=== PATIENT | female | born 1985 | race African-American/Black ===

== ENCOUNTER 2017-06-30 19:14 | Emergency (ER) | payer BC ==
[~2017-06-30] VITALS: Ht 167.6 cm; Wt 117.9 kg
[2017-06-30] MEDS ORDERED: ASPIRIN 81 MG CHEW TAB PO ONE (20:00)
[2017-06-30 20:04] LABS: BASOPHILS % 0.5 % (0.0-1.0); EOSINOPHILS # (AUTO) 0.3 (0.0-0.4); EOSINOPHILS % 4.2 % (0.0-6.0); HEMATOCRIT 29.8 % (34.2-44.1); HEMOGLOBIN 9.3 g/dL (12.0-16.0); LYMPHOCYTES % 31.6 % (18.0-39.1); MEAN CORPUSCULAR HEMOGLOBIN 25.8 pg (28-32); MEAN CORPUSCULAR HGB CONC 31.2 g/dL (31-35); MEAN CORPUSCULAR VOLUME 82.8 fL (81-99); MONOCYTES # (AUTO) 0.5 (0.2-0.8); MONOCYTES % 8.1 % (4.4-11.3); NEUTROPHILS # (AUTO) 3.6 (2.1-6.9); NEUTROPHILS % 55.3 % (38.7-80.0); PLATELET COUNT 334 x10e3/uL (140-360); RED CELL DISTRIBUTION WIDTH 22.8 % (11.7-14.4)
[2017-06-30 20:06] LABS: BILIRUBIN,URINE NEGATIVE (NEGATIVE); KETONES,URINE NEGATIVE (NEGATIVE); LEUKOCYTE ESTERASE ,URINE 2+ (NEGATIVE); NITRITE,URINE NEGATIVE (NEGATIVE); URINE UROBILINOGEN 0.2 mg/dL (0.2 - 1)
[2017-06-30 20:08] LABS: INR 0.95; PARTIAL THROMBOPLASTIN TIME 24.8 seconds (23.8-35.5); PROTHROMBIN TIME 13.2 seconds (11.9-14.5)
[2017-06-30 20:09] LABS: CLARITY,URINE SL CLOUDY (CLEAR); COLOR,URINE YELLOW (YELLOW); PROTEIN,URINE DIPSTICK TRACE (NEGATIVE)
[2017-06-30 20:18] LABS: BACTERIA,URINE MODERATE /HPF; EPITHELIAL CELLS,URINE FEW /LPF; RBC,URINE 0-5 /HPF (0-5)
[2017-06-30 20:19] LABS: ALANINE AMINOTRANSFERASE 15 IU/L (0-55); ALBUMIN 3.7 g/dL (3.5-5.0); ALBUMIN/GLOBULIN RATIO 0.9 (0.8-2.0); ALKALINE PHOSPHATASE 47 IU/L (40-150); ANION GAP 10.9 mmol/L (8-16); BLOOD UREA NITROGEN 16 mg/dL (7-26); BUN/CREATININE RATIO 19 (6-25); CARBON DIOXIDE 23 mmol/L (22-29); CHLORIDE 109 mmol/L (98-107); CREATINE KINASE 153 IU/L (29-168); CREATININE, SERUM 0.85 mg/dL (0.57-1.11); EST GLOMERULAR FILTRATION RATE > 60 ML/MIN (60-); GLUCOSE 98 mg/dL (74-118); POTASSIUM 3.9 mmol/L (3.5-5.1); SODIUM 139 mmol/L (136-145)
[2017-06-30 20:25] LABS: TROPONIN I 0.005 ng/mL (0-0.300)
[2017-06-30 20:56] LABS: ANISOCYTOSIS MODERATE
[2017-06-30 20:58] LABS: PLATELET ESTIMATE ADEQUATE; PLATELET MORPHOLOGY COMMENT NORMAL; RBC MORPHOLOGY COMMENT ABNORMAL; SCHISTOCYTES RARE; STOMATOCYTES SLIGHT; TARGET CELLS MODE
--- NOTE | 2017-06-30 21:16 | Diagnostic Imaging Report ---
EXAM: CT CHEST W DATE: 06/30/2017 7:55 PM Time stamp on exam: 6 hours INDICATION: Elevated d-dimer, chest pain COMPARISON: None TECHNIQUE: Multidetector CT scanning of the chest was performed. Coronal and sagittal multiplanar reformations were obtained. PE protocol performed. IV Contrast: 100 cc Isovue-370 CTDIvol has been reviewed. It is below the limits set by the Radiation Protocol Committee (RPC). FINDINGS: LUNGS AND AIRWAYS: The trachea and major bronchi are unremarkable. No consolidations or edema. PLEURA: No effusions or pneumothorax. HEART, MEDIASTINUM, VESSELS: The heart is within normal size limits. Soft tissue density in the anterior mediastinum is likely related to residual thymic tissue. No thoracic aortic aneurysm. The main pulmonary artery is within normal size limits. No evidence of a pulmonary embolism. UPPER ABDOMEN: Unremarkable. MUSCULOSKELETAL: No acute findings. IMPRESSION: No evidence of a pulmonary embolism. Signed by: Dr. Gisele Briseno M.D. on 06/30/2017 9:12 PM
[2017-06-30] MEDS ORDERED: SODIUM CHLORIDE 0.9% 50ML 50 ML ONE (21:22)
[2017-06-30] MEDS ORDERED: IOPAMIDOL 370 MG/ML 200 ML INFUS..BTL INJ ONE (21:22)
[2017-06-30] MEDS ORDERED: FUROSEMIDE40 MG PO (21:30)
[2017-06-30] MEDS ORDERED: KETOROLAC TROME10 MG PO (21:30)
[2017-06-30] MEDS ORDERED: GARLIQUE5000 MCG PO (21:30)
[2017-06-30] MEDS ORDERED: NORETHINDRONE AC5 MG PO (21:30)
[2017-06-30] MEDS ORDERED: LORATADINE10 M1 PO (21:30)
[2017-06-30] MEDS ORDERED: FLONASE (21:30)
[2017-06-30] MEDS ORDERED: KETOROLAC TROMETHAMINE 30 MG/ML VIAL IV ONE (22:00)
--- NOTE | 2017-07-02 16:20 | Cardiology Report ---
DATE OF STUDY: DOPPLER SCAN OF THE LOWER EXTREMITY VEINS ATTENDING PHYSICIAN: Dr. Daylin Grove. Lower extremity veins were interrogated using the duplex scanning method. The veins were compressed, but there were no definite deep venous thromboses. CONCLUSIONS: No definite deep venous thrombosis involving the lower extremity veins bilaterally. Job#: [id number] EV cc:DAYLIN GROVE MD
== END 2017-06-30 22:36 | disposition home or self-care (01) ==
LOC: ER 19:14
DX: R07.89 Other chest pain (principal); N30.90 Cystitis, unspecified without hematuria
CPT/HCPCS: 36415; 71260; 80053; 81001; 82550; 82553; 83880; 84484; 84702; 85025; 85610; 85730; 87086; 93005; 93970; 99284; J1885; Q9967

== ENCOUNTER 2018-09-21 00:03 | Inpatient (IN) | payer BC ==
[~2018-09-21] VITALS: Ht 167.6 cm; Wt 117.9 kg
[~2018-09-21 00:03] MED LIST: FLONASE; FUROSEMIDE40 MG PO; GARLIQUE5000 MCG PO; KETOROLAC TROME10 MG PO; LORATADINE10 M1 PO; NORETHINDRONE AC5 MG PO
--- OUTSIDE RECORDS SUMMARY | 2018-09-21 00:05 | XMS REPORT ---
Author Author [facility] Address Unknown Phone Unavailable Care Team Providers Care Oxygen Equipment Aide Name Role Phone Meghan GROVE Unavailable Unavailable Problems This patient has no known problems. Allergies, Adverse Reactions, Alerts This patient has no known allergies or adverse reactions. Medications This patient has no known medications. Results Test Description Test Time Test Comments Text Results Atomic Results Result Comments CT CHEST W [facility] [address] [id number] Patient Name: SANTO RAJPUT MR #: [id number] : 1985 Age/Sex: 32/F Req #: [id number] Adm Physician: Ordered by: DEVAUGHN GROVE MD Report #: [id number] Location: ER Room/Bed: Procedure: [id number] CT/CT CHEST W Exam Date: 06/30/17 Exam Time: 2024 REPORT STATUS: Signed EXAM: CT CHEST W DATE: 06/30/2017 7:55 PM Time stamp on exam: 2035 hours INDICATION: Elevated d-dimer, chest pain COMPARISON: None TECHNIQUE: Multidetector CT scanning of the chest was performed. Coronal and sagittal multiplanar reformations were obtained. PE protocol performed. IV Contrast: 100 cc Isovue-370 CTDIvol has been reviewed. It is below the limits set by the Radiation Protocol Committee (RPC). FINDINGS: LUNGS AND AIRWAYS: The trachea and major bronchi are unremarkable. No consolidations or edema. PLEURA: No effusions or pneumothorax. HEART, MEDIASTINUM, VESSELS: The heart is within normal size limits. Soft tissue density in the anterior mediastinum is likely related to residual thymic tissue. No thoracic aortic aneurysm. The main pulmonary artery is within normal size limits. No eviden ce of a pulmonary embolism. UPPER ABDOMEN: Unremarkable. MUSCULOSKELETAL: No acute findings. IMPRESSION: No evidence of a pulmonary embolism. Signed by: Dr. Layla Briseno M.D. on 06/30/2017 9:12 PM Dictated By: LAYLA BRISENO MD 11 Transcribed By: LEVON on 06/30/172111 COPY TO: DEVAUGHN GROVE MD VENOUS DUPLEX LWR B/L [address] [place] [address] Patient Name : SANTO RAJPUT MR #: [id number] : 1985 Age/Sex: 32/F Adm Physician : DEVAUGHN GROVE MD Admit Date : Location : ER Room/Bed : REPORT: Cardiology Report DATE OF STUDY: DOPPLER SCAN OF THE LOWER EXTREMITY VEINS ATTENDING PHYSICIAN: Dr. Devaughn Grove. Lower extremity veins were interrogated using the duplex scanning method. The veins were compressed, but there were no definite deep venous thromboses. CONCLUSIONS: No definite deep venous thrombosis involving the lower extremity veins bilaterally. Job#: [id number] EV cc: DEVAUGHN GROVE MD Signature Date Dictated By: GWYN ANDRADE MD Transcribed By: EDS on 07/02/17 <Electronically signed by GWYN ANDRADE MD><<Signature on File>>07/04/17 0905 COPY TO:
--- NOTE | 2018-09-21 00:45 | NUR ---
BLOOD OBTAINED FOR TYPE AND SCREEN AND BLOOD BAND APPLIED TO PATIENT WITH VERIFICATION BY THIS RN, Samuel BUENO LVN, AND PATIENT.
[2018-09-21 01:16] LABS: BASOPHILS % 0.2 % (0.0-1.0); EOSINOPHILS # (AUTO) 0.2 (0.0-0.4); EOSINOPHILS % 2.8 % (0.0-6.0); LYMPHOCYTES # (AUTO) 1.7 (1.0-3.2); LYMPHOCYTES % 31.9 % (18.0-39.1); MEAN CORPUSCULAR HEMOGLOBIN 30.8 pg (28-32); MEAN CORPUSCULAR HGB CONC 31.2 g/dL (31-35); MEAN CORPUSCULAR VOLUME 98.6 fL (81-99); MONOCYTES # (AUTO) 0.3 (0.2-0.8); MONOCYTES % 5.4 % (4.4-11.3); NEUTROPHILS # (AUTO) 3.1 (2.1-6.9); PLATELET COUNT 245 x10e3/uL (140-360); RED BLOOD COUNT 1.43 x10e6/uL (3.6-5.1); RED CELL DISTRIBUTION WIDTH 39.2 % (11.7-14.4)
[2018-09-21 01:18] LABS: HEMATOCRIT 14.1 % (34.2-44.1); HEMOGLOBIN 4.4 g/dL (12.0-16.0)
--- NOTE | 2018-09-21 01:25 | Diagnostic Imaging Report ---
EXAMINATION: CHEST 2 VIEWS INDICATION: Chest pain, sob, cough. COMPARISON: None FINDINGS: TUBES and LINES: None. LUNGS: Lungs are well inflated. Lungs are clear. There is no evidence of pneumonia or pulmonary edema. PLEURA: No pleural effusion or pneumothorax. HEART AND MEDIASTINUM: The cardiomediastinal silhouette is unremarkable. BONES AND SOFT TISSUES: No acute osseous lesion. Soft tissues are unremarkable. UPPER ABDOMEN: No free air under the diaphragm. IMPRESSION: No acute thoracic abnormality. Signed by: Dr. Marlene Steinberg M.D. on 09/21/2018 1:21 AM
[2018-09-21 01:34] LABS: ALANINE AMINOTRANSFERASE 25 IU/L (0-55); ALBUMIN 3.8 g/dL (3.5-5.0); ALBUMIN/GLOBULIN RATIO 1.1 (0.8-2.0); ALKALINE PHOSPHATASE 38 IU/L (40-150); ANION GAP 12.8 mmol/L (8-16); BLOOD UREA NITROGEN 12 mg/dL (7-26); BUN/CREATININE RATIO 16 (6-25); CALCIUM 8.5 mg/dL (8.4-10.2); CARBON DIOXIDE 23 mmol/L (22-29); CHLORIDE 105 mmol/L (98-107); CREATINE KINASE 30 IU/L (29-168); CREATININE, SERUM 0.77 mg/dL (0.57-1.11); EST GLOMERULAR FILTRATION RATE > 60 ML/MIN (60-); GLUCOSE 92 mg/dL (74-118); POTASSIUM 3.8 mmol/L (3.5-5.1); SODIUM 137 mmol/L (136-145)
[2018-09-21 02:17] LABS: BILIRUBIN,URINE NEGATIVE (NEGATIVE); CLARITY,URINE CLEAR (CLEAR); COLOR,URINE YELLOW (YELLOW); KETONES,URINE NEGATIVE (NEGATIVE); LEUKOCYTE ESTERASE ,URINE NEGATIVE (NEGATIVE); NITRITE,URINE NEGATIVE (NEGATIVE); PREGNANCY TEST, URINE NEGATIVE (NEGATIVE); PROTEIN,URINE DIPSTICK NEGATIVE (NEGATIVE); URINE UROBILINOGEN 0.2 mg/dL (0.2 - 1)
[2018-09-21 02:22] LABS: EOSINOPHILS % (MANUAL) 3 % (0-7); LYMPHOCYTES % (MANUAL) 38 % (19-48); MONOCYTES % (MANUAL) 1 % (3.4-9.0); NEUTROPHILS % (MANUAL) 58 % (40-74); NUCLEATED RED BLOOD CELLS 1
[2018-09-21 02:23] LABS: ANISOCYTOSIS MARKED; PLATELET ESTIMATE ADEQUATE; PLATELET MORPHOLOGY COMMENT NORMAL; RBC MORPHOLOGY COMMENT ABNORMAL
[2018-09-21 02:24] LABS: TEAR DROP CELLS FEW
[2018-09-21 02:25] LABS: OVALOCYTES FEW
[2018-09-21 02:26] LABS: MICROCYTOSIS MODERATE; POLYCHROMASIA FEW
[2018-09-21] MEDS ORDERED: FUROSEMIDE INJ 10 MG/ML 2 ML VIAL IV PRN (02:30)
[2018-09-21] MEDS ORDERED: SODIUM CHLORIDE 0.9% 250ML 250 ML IV ONE (02:30)
[2018-09-21 02:32] LABS: BACTERIA,URINE FEW /HPF
[2018-09-21] MEDS ORDERED: BUTALB-ACETAMI1 EACH PO (03:43)
[2018-09-21] MEDS ORDERED: SUMATRIPTAN SUC50 MG PO (03:43)
[2018-09-21] MEDS ORDERED: CYMBALTA30 MG PO (03:45)
[2018-09-21] MEDS ORDERED: GABAPENTIN300 MG PO (03:45)
[2018-09-21] MEDS ORDERED: CLONAZEPAM0.5 MG PO (03:45)
[2018-09-21] MEDS ORDERED: ONDANSETRON HCL4 MG SL (03:47)
[2018-09-21] MEDS ORDERED: KETOROLAC TROMETHAMINE 10 MG TAB PO PRN (04:00)
[2018-09-21] MEDS ORDERED: ACETAMIN/BUTALBITAL/CAFFEINE TAB PO PRN (04:00)
[2018-09-21] MEDS ORDERED: CLONAZEPAM 0.5 MG TAB PO PRN (04:00)
[2018-09-21] MEDS ORDERED: ONDANSETRON HCL 4 MG ORAL DISINTEGRATING TAB SL PRN (04:00)
[2018-09-21 04:10] VITALS: BP 120/53
[2018-09-21 05:56] VITALS: BP 121/63
[2018-09-21] MEDS ORDERED: SUMATRIPTAN SUCCINATE 25 MG TAB PO PRN (06:45)
--- NOTE | 2018-09-21 07:15 | NUR ---
Pt alert resp even and unlabored, pt lying supine, no distress noted, pt receiving blood at this time , no SOB indicated , no flank pain, pt able to make needs known, call light in reach.
[2018-09-21] MEDS: GARLIQUE PO SCH ×2 (07:30→09:00)
[2018-09-21 08:19] VITALS: BP 120/68
[2018-09-21] MEDS: LORATADINE 10 MG TAB PO SCH (08:42)
[2018-09-21] MEDS: GABAPENTIN 300 MG CAP PO SCH ×2 (08:42→17:00)
[2018-09-21] MEDS: DULOXETINE HCL 30 MG DELAYED RELEASE PO SCH (08:42)
[2018-09-21] MEDS ORDERED: FUROSEMIDE 40 MG TAB PO PRN (09:00)
[2018-09-21] MEDS: PANTOPRAZOLE 40 MG 10ML VIAL IV SCH (09:00)
[2018-09-21] MEDS ORDERED: FUROSEMIDE 40 MG TAB PO SCH (09:00)
[2018-09-21 09:27] LABS: CREATINE KINASE MB 0.1 ng/mL (0-5.0)
[2018-09-21 09:51] LABS: THYROID STIMULATING HORMONE 3.157 uIU/mL (0.350-4.940)
[2018-09-21] MEDS ORDERED: DEXAMETHASONE PHOS 10MG INJ 20 MG in SODIUM CHLORIDE 0.9% 50ML 50 ML IV NR (11:00)
[2018-09-21] MEDS ORDERED: DIPHENHYDRAMINE HCL INJ 25 MG in SODIUM CHLORIDE 0.9% 50ML 50 ML IV NR ×2 (11:00→20:30)
[2018-09-21] MEDS ORDERED: FAMOTIDINE INJ 20 MG in SODIUM CHLORIDE 0.9% 50ML 50 ML IV NR (11:00)
[2018-09-21] MEDS ORDERED: IRON DEXTRAN INJ 50 MG in SODIUM CHLORIDE 0.9% 100 ML IV ONE ×2 (11:30→21:30)
[2018-09-21] MEDS ORDERED: SODIUM CHLORIDE 0.9% 250ML 250 ML ONE ×2 (11:31→18:11)
[2018-09-21 12:04] VITALS: BP 121/72
--- NOTE | 2018-09-21 12:15 | NUR ---
2nd unit of blood started, pt with out SOB, no pain when asked, pt able to make needs known, call light in reach.
--- NOTE | 2018-09-21 12:20 | NUR ---
Dr. Barrientos, orders for infed in to pharmacy. and parietal cell anti bodied put in by lab. (Becak).
[2018-09-21] MEDS ORDERED: IRON DEXTRAN INJ 500 MG in SODIUM CHLORIDE 0.9% 500ML 500 ML IV PRN (12:30)
[2018-09-21] MEDS ORDERED: SODIUM CHLORIDE 0.9% 50ML 50 ML ONE ×2 (13:27→22:42)
[2018-09-21] MEDS ORDERED: IOPAMIDOL 370 MG/ML 200 ML INFUS..BTL INJ ONE ×2 (13:27→22:42)
--- NOTE | 2018-09-21 15:20 | NUR ---
blood 2nd unit ended pt alert no complaints at this time, call light in reach.
[2018-09-21 16:17] VITALS: BP 117/68
--- NOTE | 2018-09-21 16:30 | NUR ---
pt off unit for CT.
[2018-09-21 17:05] LABS: CREATINE KINASE 27 IU/L (29-168)
--- NOTE | 2018-09-21 17:23 | Diagnostic Imaging Report ---
EXAM: CT Abdomen and Pelvis WITH contrast INDICATION: Chest pain, anemia COMPARISON: None. TECHNIQUE: Abdomen and pelvis were scanned utilizing a multidetector helical scanner from the lung base to the pubic symphysis after administration of IV contrast. Coronal and sagittal reformations were obtained. Routine protocol was performed. Scan was performed when during portal venous phase. Dose modulation, iterative reconstruction, and/or weight based adjustment of the mA/kV was utilized to reduce the radiation dose to as low as reasonably achievable. IV CONTRAST: 100 mL of Isovue-370 ORAL CONTRAST: Volumen 900 cc RADIATION DOSE: Total DLP: 986.87 mGy*cm Estimated effective dose: (DLP x 0.015 x size factor) mSv COMPLICATIONS: None FINDINGS: LINES and TUBES: None. LOWER THORAX: Minimal atelectasis in the lung bases. Heart size normal. HEPATOBILIARY: No focal hepatic lesions. No biliary ductal dilation. GALLBLADDER: No radio-opaque stones or sludge. No wall thickening. SPLEEN: No splenomegaly. PANCREAS: No focal masses or ductal dilatation. ADRENALS: No adrenal nodules KIDNEYS/URETERS: Kidneys enhance symmetrically. No hydronephrosis. No cystic or solid mass lesions. No stones. GI TRACT: No abnormal distention, wall thickening, or evidence of bowel obstruction. Moderately large volume of retained stool in the colon. Large volume of fluid in the small bowel with fluid levels. This may be related to oral contrast. No dilatation or evidence for obstruction. No intraluminal filling defect. No wall thickening. Terminal ileum appears unremarkable. Appendix is normal. PELVIC ORGANS/BLADDER: Urinary bladder is moderately distended, extending to the upper pelvic level. The uterus is anteverted. There is a 1.9 cm cyst related to the right adnexa. LYMPH NODES: No lymphadenopathy. VESSELS: Abdominal aorta, IVC and portal system unremarkable. PERITONEUM / RETROPERITONEUM: No pneumoperitoneum or ascites. BONES: No acute or suspicious bony lesions. SOFT TISSUES: Superficial surrounding soft tissue unremarkable. IMPRESSION: 1. No CT evidence for acute abdominal or pelvic pathology. 2. No bowel dilatation or evidence for obstruction. Moderate retained stool throughout the colon may be seen with constipation. 3. 3 the urinary bladder is distended. Staff: Moira Signed by: Dr. Jayce Pizarro M.D. on 09/21/2018 5:19 PM
--- NOTE | 2018-09-21 18:15 | NUR ---
3rd unit of blood transfusing pt tolerating well, no c/o SOB and no back pain, call light in reach.
--- NOTE | 2018-09-21 19:44 | NUR ---
report given to oncoming nurse, for continued care.
[2018-09-21 20:00] VITALS: BP 105/58
[2018-09-21] MEDS ORDERED: DEXAMETHASONE PHOS 10MG INJ 20 MG in SODIUM CHLORIDE 0.9% 50ML 50 ML IV ONE (20:30)
[2018-09-21] MEDS ORDERED: FAMOTIDINE INJ 20 MG in SODIUM CHLORIDE 0.9% 50ML 50 ML IV ONE (20:30)
[2018-09-21] MEDS ORDERED: DIPHENHYDRAMINE HCL INJ 25 MG in SODIUM CHLORIDE 0.9% 50ML 50 ML IV ONE (20:30)
[2018-09-21] MEDS ORDERED: IRON DEXTRAN INJ 500 MG in SODIUM CHLORIDE 0.9% 500ML 500 ML IV ONE (23:00)
[2018-09-22] VITALS (8 sets, daily range): BP systolic 106–125; BP diastolic 56–77
--- NOTE | 2018-09-22 | NUR ---
patient refused cardiac enzymes at this time, will check in am.
[2018-09-22] MEDS ORDERED: IRON DEXTRAN INJ 500 MG in SODIUM CHLORIDE 0.9% 500ML 500 ML IV PRN (03:15)
[2018-09-22 06:17] LABS: CREATINE KINASE MB 0.2 ng/mL (0-5.0)
[2018-09-22 06:30] LABS: CHOL/HDL RATIO 3.9 (3.0-3.6)
--- NOTE | 2018-09-22 07:14 | NUR ---
Patient did not receive ordered iron because, medication was not found in the Pyxis, fridge, or specific bin, off site pharmacy called and states it will have to be prepared by the pharmacy department and so patient will get it this morning. Endorsed to next shift.
--- NOTE | 2018-09-22 07:14 | NUR ---
Pt alert resp even and unlabored at this time, no distress noted no c/o pain when asked, pt able to make needs known, call light in reach.
--- NOTE | 2018-09-22 07:45 | NUR ---
patient endorsed to next shift for continuity of care.
[2018-09-22] MEDS: LORATADINE 10 MG TAB PO SCH (09:00)
[2018-09-22] MEDS: GABAPENTIN 300 MG CAP PO SCH ×2 (09:00→17:00)
[2018-09-22] MEDS: GARLIQUE PO SCH (09:00)
[2018-09-22] MEDS: CYANOCOBALAMIN INJ 1,000 MCG/ML VIAL IM SCH ×2 (09:00→10:08)
[2018-09-22] MEDS: PANTOPRAZOLE 40 MG 10ML VIAL IV SCH (09:00)
[2018-09-22] MEDS: DULOXETINE HCL 30 MG DELAYED RELEASE PO SCH (09:00)
[2018-09-22 11:09] LABS: BASOPHILS % 0.3 % (0.0-1.0); EOSINOPHILS # (AUTO) 0.1 (0.0-0.4); EOSINOPHILS % 0.8 % (0.0-6.0); HEMATOCRIT 26.2 % (34.2-44.1); HEMOGLOBIN 8.8 g/dL (12.0-16.0); LYMPHOCYTES # (AUTO) 1.2 (1.0-3.2); MEAN CORPUSCULAR HEMOGLOBIN 30.9 pg (28-32); MEAN CORPUSCULAR HGB CONC 33.6 g/dL (31-35); MEAN CORPUSCULAR VOLUME 91.9 fL (81-99); MONOCYTES # (AUTO) 0.3 (0.2-0.8); MONOCYTES % 3.9 % (4.4-11.3); NEUTROPHILS # (AUTO) 4.9 (2.1-6.9); NEUTROPHILS % 75.3 % (38.7-80.0); PLATELET COUNT 247 x10e3/uL (140-360); RED BLOOD COUNT 2.85 x10e6/uL (3.6-5.1); RED CELL DISTRIBUTION WIDTH 27.2 % (11.7-14.4)
[2018-09-22 13:14] LABS: ANISOCYTOSIS MODERATE; EOSINOPHILS % (MANUAL) 1 % (0-7); LYMPHOCYTES % (MANUAL) 23 % (19-48); MONOCYTES % (MANUAL) 4 % (3.4-9.0); NEUTROPHILS % (MANUAL) 70 % (40-74); POIKILOCYTOSIS MODERATE; RBC MORPHOLOGY COMMENT ABNORMAL
[2018-09-22 13:15] LABS: ELLIPTOCYTE, RBC MODERATE; PLATELET ESTIMATE ADEQUATE; PLATELET MORPHOLOGY COMMENT NORMAL; SCHISTOCYTES FEW; TEAR DROP CELLS MODERATE
--- NOTE | 2018-09-22 19:00 | NUR ---
WALKING ROUNDS PERFORMED, RECEIVED PT SITTING IN BED, AAOX3, RR EVEN AND NON-LABORED, ON RA. TALKING TO MD GILLETTE. NO S/SX OF DISTRESS NOTED. LEFT PT LAYING SEMI FOWLERS IN BED, BED IN LOW LOCKED POSITION, SIDE RAILS UPX2, CALL LIGHT AND PHONE WITHIN REACH.
--- NOTE | 2018-09-22 19:19 | NUR ---
REPORT GIVEN TO ONCOMING NURSE, FOR CONTINUED CARE
[2018-09-23] VITALS: BP 108/65
[2018-09-23 04:00] VITALS: BP 108/62
[2018-09-23 05:23] LABS: BASOPHILS % 0.2 % (0.0-1.0); EOSINOPHILS # (AUTO) 0.1 (0.0-0.4); EOSINOPHILS % 1.5 % (0.0-6.0); HEMOGLOBIN 7.5 g/dL (12.0-16.0); LYMPHOCYTES # (AUTO) 2.7 (1.0-3.2); LYMPHOCYTES % 51.8 % (18.0-39.1); MEAN CORPUSCULAR HEMOGLOBIN 30.2 pg (28-32); MEAN CORPUSCULAR HGB CONC 33.6 g/dL (31-35); MEAN CORPUSCULAR VOLUME 89.9 fL (81-99); MONOCYTES # (AUTO) 0.2 (0.2-0.8); NEUTROPHILS # (AUTO) 2.2 (2.1-6.9); NEUTROPHILS % 41.5 % (38.7-80.0); PLATELET COUNT 144 x10e3/uL (140-360); RED BLOOD COUNT 2.48 x10e6/uL (3.6-5.1); RED CELL DISTRIBUTION WIDTH 26.6 % (11.7-14.4)
[2018-09-23 05:27] LABS: HEMATOCRIT 22.3 % (34.2-44.1)
[2018-09-23 05:40] LABS: ALANINE AMINOTRANSFERASE 34 IU/L (0-55); ALBUMIN 3.6 g/dL (3.5-5.0); ALBUMIN/GLOBULIN RATIO 1.2 (0.8-2.0); ALKALINE PHOSPHATASE 34 IU/L (40-150); ANION GAP 10.6 mmol/L (8-16); BLOOD UREA NITROGEN 15 mg/dL (7-26); BUN/CREATININE RATIO 21 (6-25); CALCIUM 8.4 mg/dL (8.4-10.2); CARBON DIOXIDE 25 mmol/L (22-29); CHLORIDE 105 mmol/L (98-107); CREATININE, SERUM 0.72 mg/dL (0.57-1.11); EST GLOMERULAR FILTRATION RATE > 60 ML/MIN (60-); GLUCOSE 94 mg/dL (74-118); POTASSIUM 3.6 mmol/L (3.5-5.1); SODIUM 137 mmol/L (136-145)
[2018-09-23 06:51] LABS: ANISOCYTOSIS SLIGHT; PLATELET ESTIMATE ADEQUATE; PLATELET MORPHOLOGY COMMENT NORMAL; RBC MORPHOLOGY COMMENT NORMAL
[2018-09-23 07:59] VITALS: BP 103/59
[2018-09-23 08:30] VITALS: BP 103/59
[2018-09-23] MEDS: GABAPENTIN 300 MG CAP PO SCH (08:31)
[2018-09-23] MEDS: LORATADINE 10 MG TAB PO SCH (08:31)
[2018-09-23] MEDS: DULOXETINE HCL 30 MG DELAYED RELEASE PO SCH (08:31)
[2018-09-23] MEDS: CYANOCOBALAMIN INJ 1,000 MCG/ML VIAL IM SCH (08:31)
[2018-09-23] MEDS: PANTOPRAZOLE 40 MG 10ML VIAL IV SCH (08:31)
[2018-09-23] MEDS: GARLIQUE PO SCH (08:31)
[2018-09-23 11:49] VITALS: BP 106/55
--- NOTE | 2018-09-23 13:11 | NUR ---
piv removed with tip intact, clean dry dressing applied. denies pain. all personal belongings, RX and d/c instructions in hand at time of d/c. escorted downstairs to exit via wheelchair. patient states drove self here and had private auto in parking lot to which she ambulated to.
--- NOTE | 2018-09-24 11:05 | Discharge Summary ---
ADMIT DIAGNOSES: 1. Acute on chronic anemia. 2. Anemia secondary to iron deficiency. 3. Menorrhagia. DISCHARGE DIAGNOSES: 1. Chronic anemia secondary to iron deficiency and vitamin B12 deficiency. 2. Acute on chronic anemia secondary to menorrhagia. 3. Menorrhagia. 4. Extreme obesity. Body mass index of 42. HOSPITAL COURSE: This is a 33-year-old woman, who was initially admitted to [facility] with a diagnosis of profound anemia. On admission, hemoglobin was 4.4 g/dL. During this hospitalization, she was transfused a total of 3 units of packed red cells. She was also seen by men's golf coach namely Dr. Magali Venegas during this hospitalization for acute anemia. It was thought that the patient's acute on chronic anemia was secondary to menorrhagia. She has a history of chronic anemia secondary to iron deficiency and vitamin B12 deficiency. The patient was found to have a vitamin B12 level of 8 during this hospitalization, which is very low. The patient also was infused iron during this hospitalization. CONDITION ON DISCHARGE: Stable. DISCHARGE MEDICATIONS: 1. Vitamin B12, 1000 mcg intramuscularly daily for 7 days and then weekly for 4 weeks and then monthly thereafter. 2. Fioricet 1 tablet every 6 hours p.r.n. pain. 3. Clonazepam 0.5 mg every 6 hours p.r.n. anxiety. 4. Duloxetine 30 mg daily. 5. Gabapentin 300 mg b.i.d. 6. Loratadine 10 mg daily. 7. Ondansetron 4 mg sublingual every 4 hours p.r.n. nausea. 8. Sumatriptan 50 mg q.2 hours p.r.n. migraine headache. The patient was previously on ketorolac and she was told to stop the medication. The patient is instructed to avoid all NSAIDs and aspirin. FOLLOWUP INSTRUCTIONS: The patient is instructed to follow up with a offender job retention specialist and men's golf coach as an outpatient. MD FRANKLYN Fox/HERNANDEZ /[id number] cc: MD Magali Mc, MD
== END 2018-09-23 13:11 | disposition home or self-care (01) | DRG 812 ==
LOC: ER 00:03 → ERHOLD 02:46 → OBSVTOIN 03:11 → MED/SURG2 04:15
PROC: 30233N1 Transfusion of Nonautologous Red Blood Cells into Peripheral Vein, Percutaneous Approach (ICD-10-PCS; principal; 2018-09-21)
DX: D62 Acute posthemorrhagic anemia (principal); Z68.41 Body mass index [BMI] 40.0-44.9, adult; N92.0 Excessive and frequent menstruation with regular cycle; E66.01 Morbid (severe) obesity due to excess calories; D50.9 Iron deficiency anemia, unspecified; D51.9 Vitamin B12 deficiency anemia, unspecified
CPT/HCPCS: 36415; 71046; 74177; 80053; 80061; 81001; 81025; 82550; 82553; 82607; 82728; 83516; 83540; 84436; 84443; 84466; 84479; 84484; 85025; 85045; 86850; 86900; 86920; 93005; 99284; J1100; J1200; J1750; J1940; J3420; J7040; J7050; P9016; Q9967

== ENCOUNTER 2019-11-18 22:50 | Emergency (ER) | payer BC ==
[~2019-11-18] VITALS: Ht 167.6 cm; Wt 114.8 kg
[~2019-11-18 22:50] MED LIST changes: +BUTALB-ACETAMI1 EACH PO; +CLONAZEPAM0.5 MG PO; +CYMBALTA30 MG PO; +GABAPENTIN300 MG PO; +ONDANSETRON HCL4 MG SL; +SUMATRIPTAN SUC50 MG PO
--- NOTE | 2019-11-18 23:11 | Emergency Department Note ---
History of Present Illnes History of Present Illness Stated Complaint: KNEE PAIN, CAN'T WALK OF STAND ON KNEE History of Present Illness This is a 34 year old female R knee pain of week duration. patient with fevers which self resolved prior to arrival . Patient seen at urgent care prior with neg XR of R knee Historian: Patient Mathematician Required: No Onset (how long ago): week(s) (1) Radiation: non-radiation Severity: moderate Onset quality: sudden Timing of current episode: constant Progression: worsening Context: recent illness Relieving factors: immobilization Exacerbating factors: movement Associated symptoms: fever/chills Treatments prior to arrival: NSAID Past Medical/Family History Physician Review I have reviewed the patient's past medical and family history. Any updates have been documented here. Past Medical History Recent Fever: Yes Clinical Suspicion of Infectio: No New/Unexplained Change in Ment: No Past Medical History: None, Migraines, Anemia, Anxiety, Depression Other Medical History: ANEMIA ENDOMETROSIS Spondylosis Other Surgery: Social History Smoking Cessation: Never Smoker Alcohol Use: None Any Illegal Drug Use: No Family History Family history of heart diseas: Yes Other Last Tetanus: UNK Review of Systems Review of Systems Constitutional: fever Musculoskeletal: joint pain Review of other systems All other systems reviewed and negative. Physical Exam Related Data Allergies: Coded Allergies: peanut (Verified Allergy, Unknown, 06/30/17) Physical Exam CONSTITUTIONAL Constitutional: well-developed, obese HENT HENT: normocephalic, atraumatic, oropharynx clear/moist, nose normal HENT - Ear: left ext ear normal, right ext ear normal EYES Eyes: PERRL, conjunctivae normal NECK Neck: ROM normal PULMONARY Pulmonary: effort normal, breath sounds normal CARDIOVASCULAR Cardiovascular: regular rhythm, heart sounds normal, capillary refill normal, normal rate GASTROINTESTINAL Abdominal: soft, nontender, bowel sounds normal GENITOURINARY Genitourinary: exam deferred SKIN Skin: warm, dry MUSCULOSKELETAL Musculoskeletal: ROM normal, tenderness (right anterior knee) NEUROLOGICAL Neurological: alert, oriented x 3, no gross motor or sensory deficits PSYCHOLOGICAL Psychiatric/behavioral: mood/affect normal, judgement normal Results Laboratory Laboratory Laboratory Tests Test 11/18/19 23:26 White Blood Count 10.36 x10e3/uL (4.8-10.8) Red Blood Count 4.39 x10e6/uL (3.6-5.1) Hemoglobin 10.2 g/dL (12.0-16.0) Hematocrit 34.1 % (34.2-44.1) Mean Corpuscular Volume 77.7 fL (81-99) Mean Corpuscular Hemoglobin 23.2 pg (28-32) Mean Corpuscular Hemoglobin Concent 29.9 g/dL (31-35) Red Cell Distribution Width 18.6 % (11.7-14.4) Platelet Count 252 x10e3/uL (140-360) Neutrophils (%) (Auto) 71.9 % (38.7-80.0) Lymphocytes (%) (Auto) 7.8 % (18.0-39.1) Monocytes (%) (Auto) 5.0 % (4.4-11.3) Eosinophils (%) (Auto) 13.8 % (0.0-6.0) Basophils (%) (Auto) 1.2 % (0.0-1.0) Neutrophils # (Auto) 7.5 (2.1-6.9) Lymphocytes # (Auto) 0.8 (1.0-3.2) Monocytes # (Auto) 0.5 (0.2-0.8) Eosinophils # (Auto) 1.4 (0.0-0.4) Basophils # (Auto) 0.1 (0.0-0.1) Absolute Immature Granulocyte (auto 0.03 x10e3/uL (0-0.1) Sodium Level 137 mmol/L (136-145) Potassium Level 3.7 mmol/L (3.5-5.1) Chloride Level 105 mmol/L (98-107) Carbon Dioxide Level 23 mmol/L (22-29) Anion Gap 12.7 mmol/L (8-16) Blood Urea Nitrogen 9 mg/dL (7-26) Creatinine 0.73 mg/dL (0.57-1.11) Estimat Glomerular Filtration Rate > 60 ML/MIN (60-) BUN/Creatinine Ratio 12 (6-25) Glucose Level 123 mg/dL (74-118) Calcium Level 9.0 mg/dL (8.4-10.2) Lab results reviewed: Yes Imaging Y: Yes Impressions [facility] [address] [place], [place] [id number] Patient Name: SANTO RAJPUT MR #: [id number] : 1985 Age/Sex: 34/F Req #: [id number] [facility] Physician: Ordered by: OLGA RAY DO Report #: [id number] Location: ER Room/Bed: Procedure: [id number] DX/KNEE RIGHT THREE VIEWS Exam Date: 11/18/19 Exam Time: 2340 REPORT STATUS: Signed KNEE RIGHT THREE VIEWS - 3 views HISTORY: Pain. COMPARISON: None available. FINDINGS: Bones: No acute displaced fracture. Osseous alignment is within normal limits. Joints: The joint spaces are well-maintained. Soft tissues: The soft tissues appear unremarkable. IMPRESSION: No acute radiographic abnormality. Signed by: Kely Doss MD on 11/19/2019 12:03 AM Dictated By: KELY DOSS MD 0003 Transcribed By: LEVON on 11/19/19 0003 COPY TO: OLGA RAY DO~ Assessment & Plan Assessment & Plan Problems: (1) Knee pain, right anterior Assessment & Plan Dff Dx : R knee fx, R knee sprain, gout of R knee, R knee bursitis , Septic Joint R knee Plan : Patient to be d/c home Rx Motrin 600 mg, Tylenol #3, Prednisone 60 mg F/U with Dr [facility] Reassessment Reassessment Patient responding well to clinical therapy. Depart Disposition: HOME, SELF-longterm Meds Reported Medications Ondansetron Hcl (ONDANSETRON HCL) 4 Mg Tablet, 4 MG SL Q4HR PRN for NAUSEA 09/21/18 Gabapentin (GABAPENTIN) 300 Mg Capsule, 300 MG PO BID 09/21/18 Duloxetine Hcl (CYMBALTA) 30 Mg Capsule.dr 30 MG PO DAILY 09/21/18 Clonazepam (CLONAZEPAM) 0.5 Mg Tablet, 0.5 MG PO Q6H PRN for ANXIETY 09/21/18 Sumatriptan Succinate (SUMATRIPTAN SUCCINATE) 50 Mg Tablet, 50 MG PO Q2H PRN for MIGRAINE 09/21/18 Butalb/Acetaminophen/Caffeine (FDOYYX-LTBOZYAB-GLJS 50-325-40) 1 Each Tablet, 1 TAB PO Q6H PRN for MIGRAINE 09/21/18 Loratadine (LORATADINE) 10 Mg Tab.gusdis, 10 MG PO DAILY 06/30/17 OLGA RAY DO November 18, 2019 22:55
[2019-11-18] MEDS ORDERED: KETOROLAC TROMETHAMINE 30 MG/ML VIAL ONE (23:26)
[2019-11-18 23:44] LABS: BASOPHILS # (AUTO) 0.1 (0.0-0.1); BASOPHILS % 1.2 % (0.0-1.0); EOSINOPHILS # (AUTO) 1.4 (0.0-0.4); EOSINOPHILS % 13.8 % (0.0-6.0); HEMATOCRIT 34.1 % (34.2-44.1); HEMOGLOBIN 10.2 g/dL (12.0-16.0); LYMPHOCYTES # (AUTO) 0.8 (1.0-3.2); LYMPHOCYTES % 7.8 % (18.0-39.1); MEAN CORPUSCULAR HEMOGLOBIN 23.2 pg (28-32); MEAN CORPUSCULAR HGB CONC 29.9 g/dL (31-35); MEAN CORPUSCULAR VOLUME 77.7 fL (81-99); MONOCYTES # (AUTO) 0.5 (0.2-0.8); NEUTROPHILS # (AUTO) 7.5 (2.1-6.9); NEUTROPHILS % 71.9 % (38.7-80.0); PLATELET COUNT 252 x10e3/uL (140-360); RED BLOOD COUNT 4.39 x10e6/uL (3.6-5.1); RED CELL DISTRIBUTION WIDTH 18.6 % (11.7-14.4)
[2019-11-19 00:05] LABS: ANION GAP 12.7 mmol/L (8-16); BLOOD UREA NITROGEN 9 mg/dL (7-26); BUN/CREATININE RATIO 12 (6-25); CARBON DIOXIDE 23 mmol/L (22-29); CHLORIDE 105 mmol/L (98-107); CREATININE, SERUM 0.73 mg/dL (0.57-1.11); EST GLOMERULAR FILTRATION RATE > 60 ML/MIN (60-); GLUCOSE 123 mg/dL (74-118); POTASSIUM 3.7 mmol/L (3.5-5.1); SODIUM 137 mmol/L (136-145)
--- NOTE | 2019-11-19 00:06 | Diagnostic Imaging Report ---
KNEE RIGHT THREE VIEWS - 3 views HISTORY: Pain. COMPARISON: None available. FINDINGS: Bones: No acute displaced fracture. Osseous alignment is within normal limits. Joints: The joint spaces are well-maintained. Soft tissues: The soft tissues appear unremarkable. IMPRESSION: No acute radiographic abnormality. Signed by: Saud Perez MD on 11/19/2019 12:03 AM
== END 2019-11-19 | disposition home or self-care (01) ==
LOC: ER 22:50
DX: M25.561 Pain in right knee (principal); D64.9 Anemia, unspecified; F41.9 Anxiety disorder, unspecified; Z86.39 Personal history of other endocrine, nutritional and metabolic disease
CPT/HCPCS: 36415; 73562; 80048; 85025; 99283; J1885

== ENCOUNTER 2020-03-04 15:06 | Emergency (ER) | payer BC ==
[~2020-03-04] VITALS: Ht 165.1 cm; Wt 117.9 kg
--- OUTSIDE RECORDS SUMMARY | 2020-03-04 15:16 | XMS REPORT | Continuity of Care Document ---
Author Author [facility] t Organization [facility] Address [address] [place] [address] Phone Unavailable Care Team Providers Care Batterboard Setter Name Role Phone NONSTAFF PCP Unavailable OLGA RAY Attphys Unavailable VILLA, SOUHEIL Attphys Unavailable SWEET, A LAIRD Attphys Unavailable VILLA, SOUHEIL Admphys Unavailable Payers Payer Name Policy Type Policy Number Effective Date Expiration Date [facility] Problems Condition Name Condition Details Condition Category Status Onset Date Resolution Date Last Treatment Date Treating Clinician Comments Source Chest pain Chest pain Problem Active [facility] Secondary anemia Symptomatic anemia Problem Active [facility] Right anterior knee pain Problem Active [facility] Allergies, Adverse Reactions, Alerts Allergy Name Allergy Type Status Severity Reaction(s) Onset Date Inacti ve Date Treating Clinician Comments Source Peanuts Allergy to substance Active 2017-06-30 00:00:00 [facility] No Known Allergies DA Active U 2015-03-02 00:00:00 [facility] Social History Social Habit Start Date Stop Date Quantity Comments Source Sex Assigned At 1985 00:00:00 1985 00:00:00 Female [facility] Medications Ordered Medication Name Filled Medication Name Start Date Stop Da te Current Medication? Ordering Clinician Indication Dosage Frequency Signature (SIG) Comments Components Source Butalb/Acetaminophen/Caffeine (Tdvefu-Gzksqvkq-Lzzr 50 -325-40) 1 Each TABLET Butalb/Acetaminophen/Caffeine (Sxfrxn-Obdpzgig-Qbek 50-325-40) 1 Each TABLET Yes 1 Every 6 Hours as needed for Migr rodney [facility] Clonazepam Clonazepam Yes .5 Every 6 Hours as n eeded for Anxiety [facility] Duloxetine Hcl (Cymbalta) 30 Mg CAPSULE. Duloxetine Hcl (Cymbalta) 30 Mg CAPSULE. Yes [address] [facility] Gabapentin Gabapentin Yes 300 Twice A Day [facility] Loratadine Loratadine Yes 10 Daily [facility] Ondansetron Hcl Ondansetron Hcl Yes 4 Every 4 Hours as needed for Nausea [facility] Sumatriptan Succinate Sumatriptan Succinate Yes 50 Every Two Hours as needed for Migraine [facility] Furosemide Furosemide 2018-09-23 00:00:00 No 20 Daily as needed for Shortness Of Breath [facility] Garlic (Garlique) 5,000 Mcg TABLET Garlic (Garlique) 5,000 Mcg T ABLET 2018-09-23 00:00:00 No 5000 Daily [facility] Ketorolac Tromethamine (Toradol) 10 Mg TABLET Ketorola c Tromethamine (Toradol) 10 Mg TABLET 2018-09-23 00:00:00 No 10 Every 8 Hours as needed for Pain [facility] Flonase Flonase 2018-09-21 00:00:00 No [facility] Norethindrone Acetate Norethindrone Acetate 2018-09-21 00:00:00 No 5 Daily [facility] Vital Signs Vital Name Observation Time Observation Value Comments Source Weight 2019-11-18 23:05:00 253 [lb_av] [facility] BMI (Body Mass Index) 2019-11-18 23:05:00 40.8 kg/m2 [facility] Procedures This patient has no known procedures. Plan of Care Planned Activity Planned Date Details Comments Source Instructions Knee Overuse [facility] Encounters Start Date/Time End Date/Time [facility] Ad[facility] Encounter ID Source 2019-11-18 22:50:00 2019-11-19 00:00:00 Departed Emergency Room [address] [facility] [id number] [facility] 2018-09-21 03:11:00 2018-09-23 13:11:00 Discharged Inpatient 1 NICOLAS VILLA [facility] [id number] [facility] Results Test Description Test Time Test Comments Results Result Comments Source KNEE RIGHT THREE VIEWS 2019-11-19 00:02:00 [facility] [address] [place] [address] Patient Name: SANTO RAJPUT MR #: [id number] : 1985 Age/Sex: 34/F Req #: [id number] Adm Physician: Ordered by: OLGA RAY DO Report #: [id number] Location: ER Room/Bed: Procedure: [id number] DX/KNEE RIGHT THREE VIEWS Exam Date: 11/18/19 Exam Time: 2339 REPORT STATUS: Signed KNEE RIGHT THREE VIEWS - 3 views HISTORY: Pain. COMPARISON: None available. FINDINGS: Bones: No acute displaced fracture. Osseous alignment is within normal limits. Joints: The joint spaces are well-maintained. Soft tissues: The soft tissues appear unremarkable. IMPRESSION: No acute radiographic abnormality. Signed by: Kely Doss MD on 11/19/2019 12:03 AM Dictated By: KELY DOSS MD 0003 Transcribed By: LEVON on 11/19/19 0003 COPY TO: OLGA RAY DO Blood leukocytes automated count (number/volume) 2019-11-18 23:26:00 Test Item White Blood Count (test code = 6690-2) 10.36 4.8-10.8 [facility] count (number/volume)2019-11-18 23:26:00* Test Item Value Reference Range Interpretation Comments Red Blood Count (test code = 789-8) 4.39 3.6-5.1 [facility] (moles/volume)2019-11-18 23:26:00* Test Item Value Reference Range Interpretation Comments Hemoglobin (test code = 81082-2) 10.2 12.0-16.0 [facility] CenterAutom[facility] blood hematocrit (volume fraction)2019-11-18 23:26:00* Test Item Value Reference Range Interpretation Comments Hematocrit (test code = 4544-3) 34.1 34.2-44.1 [facility] Center[facility] erythrocyte mean corpuscular [id number] 23:26:00* Test Item Value Reference Range Interpretation Comments Mean Corpuscular Volume (test code = 787-2) 77.7 81-99 [facility] CenterAutom[facility] erythrocyte mean corpuscular hemoglobin (mass per erythrocyte)2019-11-18 23:26:00* Test Item Value Reference Range Interpretation Comments Mean Corpuscular Hemoglobin (test code = 785-6) 23.2 28-32 [facility] CenterAutom[facility] erythrocyte mean corpuscular hemoglobin concentration measurement (mass/volume)2019-11-18 23:26:00* Test Item Value Reference Range Interpretation Comments Mean Corpuscular Hemoglobin Concent (test code = 786-4) 29.9 31-35 [facility] CenterRDW [id number]-Wyr3567-43-11 23:26:00* Test Item Value Reference Range Interpretation Comments Red Cell Distribution Width (test code = 17244-6) 18.6 11.7 -14.4 [facility] Center[facility] blood platelet count (count/volume)2019-11-18 23:26:00* Test Item Value Reference Range Interpretation Comments Platelet Count (test code = 777-3) 252 140-360 [facility] CenterAutom[facility] blood segmented neutrophil count as percentage of total rhbmktouug8491-17-35 23:26:00* Test Item Value Reference Range Interpretation Comments Neutrophils (%) (Auto) (test code = 99717-7) 71.9 38.7-80.0 [facility] CenterAut[facility] lymphocyte count as percentage ot total vchzcgmezq2622-42-47 23:26:00* Test Item Value Reference Range Interpretation Comments Lymphocytes (%) (Auto) (test code = 736-9) 7.8 18.0-39.1 [facility] CenterAutomated blood monocyte count as percentage of total fpirheakgu0984-85-98 23:26:00* Test Item Value Reference Range Interpretation Comments Monocytes (%) (Auto) (test code = 5905-5) 5.0 4.4-11.3 [facility] blood eosinophil count as percentage of total xgphhsgnwz8597-16-61 23:26:00* Test Item Value Reference Range Interpretation Comments Eosinophils (%) (Auto) (test code = 713-8) 13.8 0.0-6.0 [facility] CenterAutomated blood basophil count as percentage of total bqwgqfnlir0465-82-29 23:26:00* Test Item Value Reference Range Interpretation Comments Basophils (%) (Auto) (test code = 706-2) 1.2 0.0-1.0 [facility] CenterFluoroscopic procedure less than one hour erzkjmsn2428-00-09 23:26:00* Test Item Value Reference Range Interpretation Comments IM GRANULOCYTES % (test code = IM GRANULOCYTES %) 0.3 0.0- 1.0 [facility] CenterAutom[facility] blood neutrophil count 2019-11-18 23:26:00* Test Item Value Reference Range Interpretation Comments Neutrophils # (Auto) (test code = 751-8) 7.5 2.1-6.9 [facility] CenterBlood lymphocytes count (number/volume) 2019-11-18 23:26:00* Test Item Value Reference Range Interpretation Comments Lymphocytes # (Auto) (test code = 34444-3) 0.8 1.0-3.2 [facility] CenterBlood monocytes automated count (number/volume)2019-11-18 23:26:00* Test Item Value Reference Range Interpretation Comments Monocytes # (Auto) (test code = 742-7) 0.5 0.2-0.8 [facility] CenterAutomated blood eosinophil count 2019-11-18 23:26:00* Test Item Value Reference Range Interpretation Comments Eosinophils # (Auto) (test code = 711-2) 1.4 0.0-0.4 [facility] CenterAutomated blood basophil count (count/volume)2019-11-18 23:26:00* Test Item Value Reference Range Interpretation Comments Basophils # (Auto) (test code = 704-7) 0.1 0.0-0.1 [facility] CenterFluoroscopic procedure less than one hour isjpkfwx9040-42-52 23:26:00* Test Item Value Reference Range Interpretation Comments Absolute Immature Granulocyte (auto (peace t code = Absolute Immature Granulocyte (auto) 0.03 0-0.[address] [facility] [facility] plasma sodium measurement (moles/volume)2019-11-18 23:26:00* Test Item Value Reference Range Interpretation Comments Sodium Level (test code = 2951-2) 137 136-[address] [facility] [address] [facility] or plasma potassium measurement (moles/volume)2019-11-18 23:26:00* Test Item Value Reference Range Interpretation Comments Potassium Level (test code = 2823-3) 3.7 3.5-5.[address] [facility] Hospitalerum or plasma chloride measurement (moles/volume)2019-11-18 23:26:00* Test Item Value Reference Range Interpretation Comments Chloride Level (test code = 2075-0) 105 98-[address] [facility] Hospital[facility] or plasma carbon dioxide, total measurement (moles/volume)2019-11-18 23:26:00* Test Item Value Reference Range Interpretation Comments Carbon Dioxide Level (test code = 2028-9) 23 22-[address] [facility] [facility] Hospitalerum or plasma anion [id number] 23:26:00* Test Item Value Reference Range Interpretation Comments Anion Gap (test code = 21205-9) 12.7 8-[address] [facility] or plasma urea nitrogen measurement (mass/volume)2019-11-18 23:26:00* Test Item Value Reference Range Interpretation Comments Blood Urea Nitrogen (test code = 3094-0) 9 7-[address] [facility] or plasma creatinine measurement (mass/volume)2019-11-18 23:26:00* Test Item Value Reference Range Interpretation Comments Creatinine (test code = 2160-0) 0.73 0.57-1.[address] [facility] Hospitalerum or plasma urea nitrogen/creatinine mass [id number] 23:26:00* Test Item Value Reference Range Interpretation Comments BUN/Creatinine Ratio (test code = 3097-3) 12 6-25 [facility] CenterEstimated glomerular filtration rate (GFR) hbednblboxzar9583-01-62 23:26:00* Test Item Value Reference Range Interpretation Comments Estimat Glomerular Filtration Rate (test code = 344619855) > 60 >60 Ranges were taken from the National Kidney Disease Education Program and the [facility] Foundation literature.Reference ranges:60 or greater: Fphvkx84-55 ( for 3 consecutive months): Chronic kidney disease 15 or less: Kidney failureFort [facility] Regional Medical CenterGlucose qvcnoleecqa7740-14-36 23:26:00* Test Item Value Reference Range Interpretation Comments Glucose Level (test code = EUJ4923) 123 74-[address] [facility] Hospitalerum or plasma calcium measurement (mass/volume)2019-11-18 23:26:00* Test Item Value Reference Range Interpretation Comments Calcium Level (test code = 44133-4) 9.0 8.4-10.[address] [facility] HospitalTREPTOCOCCUS PCR [id number] 07:51:00* Test Item Value Reference Range Interpretation Comments STREPTOCOCCUS DYSGALACTIAE (test code = STREPGC) NEGATIVE FOR G/C N EGATIVE STREPA MOLECULAR (test code = STREPAMOL) NEGATIVE FOR GRP A NEGATIV E CBC W/AUTO [id number] 04:39:00* Test Item Value Reference Range Interpretation Comments WHITE BLOOD CELL (test code = WBC) 24.5 K/mm3 4.5-12.5 H RED BLOOD CELL (test code = RBC) 4.39 mill/mm3 3.7-5.2 N HEMOGLOBIN (test code = HGB) 11.0 gram/dL 11.5-15.5 L HEMATOCRIT (test code = HCT) 34.6 % 36.0-46.0 L MEAN CELL VOLUME (test code = MCV) 78.8 fL 80-98 L MEAN CELL HGB (test code = MCH) 25.1 picogram 27.0-33.0 L MEAN CELL HGB CONCETRATION (test code = MCHC) 31.8 gram/dL 33.0-36. 0 L RED CELL DISTRIBUTION WIDTH (test code = RDW) 13.9 % 11.6-16. 2 N RED CELL DISTRIBUTION WIDTH SD (test code = RDW-SD) 40.4 fL 37 .0-51.0 N PLATELET COUNT (test code = PLT) 337 K/mm3 150-450 N MEAN PLATELET VOLUME (test code = MPV) 10.1 fL 6.7-11.0 N NEUTROPHIL % (test code = NT%) 61.7 % 39.0-69.0 N LYMPHOCYTE % (test code = LY%) 4.6 % 25.0-55.0 L MONOCYTE % (test code = MO%) 4.6 % 0.0-10.0 N EOSINOPHIL % (test code = EO%) 27.5 % 0.0-5.0 H BASOPHIL % (test code = BA%) 0.2 % 0.0-1.0 N NEUTROPHIL # (test code = NT#) 15.11 K/mm3 1.8-7.7 H LYMPHOCYTE # (test code = LY#) 1.13 K/mm3 1.0-5.0 N MONOCYTE # (test code = MO#) 1.12 K/mm3 0-0.8 H EOSINOPHIL # (test code = EO#) 6.74 K/mm3 0.0-0.5 H BASOPHIL # (test code = BA#) 0.06 K/mm3 0.0-0.2 N MANUAL DIFF REQUIRED (test code = MDIFF) NO, ONLY SCAN NEEDED DIFFERENTIAL [id number] 04:39:00* Test Item Value Reference Range Interpretation Comments STAIN ACCEPTABILITY (test code = STN ACCEPTABLE) STAIN ACCEPTABLE HYPOCHROMIA (test code = HYPO) 1+ POIKILOCYTOSIS (test code = POIK) 1+ ANISOCYTOSIS (test code = ANISO) 1+ PLATELET ESTIMATE (test code = PLTEST) ADEQUATE PLATELET MORPHOLOGY (test code = PLTMORPH) NORMAL CBC W/AUTO [id number] 04:37:00* Test Item Value Reference Range Interpretation Comments WHITE BLOOD CELL (test code = WBC) 24.5 K/mm3 4.5-12.5 H RED BLOOD CELL (test code = RBC) 4.39 mill/mm3 3.7-5.2 N HEMOGLOBIN (test code = HGB) 11.0 gram/dL 11.5-15.5 L HEMATOCRIT (test code = HCT) 34.6 % 36.0-46.0 L MEAN CELL VOLUME (test code = MCV) 78.8 fL 80-98 L MEAN CELL HGB (test code = MCH) 25.1 picogram 27.0-33.0 L MEAN CELL HGB CONCETRATION (test code = MCHC) 31.8 gram/dL 33.0-36. 0 L RED CELL DISTRIBUTION WIDTH (test code = RDW) 13.9 % 11.6-16. 2 N RED CELL DISTRIBUTION WIDTH SD (test code = RDW-SD) 40.4 fL 37 .0-51.0 N PLATELET COUNT (test code = PLT) 337 K/mm3 150-450 N MEAN PLATELET VOLUME (test code = MPV) 10.1 fL 6.7-11.0 N NEUTROPHIL % (test code = NT%) 61.7 % 39.0-69.0 N LYMPHOCYTE % (test code = LY%) 4.6 % 25.0-55.0 L MONOCYTE % (test code = MO%) 4.6 % 0.0-10.0 N EOSINOPHIL % (test code = EO%) 27.5 % 0.0-5.0 H BASOPHIL % (test code = BA%) 0.2 % 0.0-1.0 N NEUTROPHIL # (test code = NT#) 15.11 K/mm3 1.8-7.7 H LYMPHOCYTE # (test code = LY#) 1.13 K/mm3 1.0-5.0 N MONOCYTE # (test code = MO#) 1.12 K/mm3 0-0.8 H EOSINOPHIL # (test code = EO#) 6.74 K/mm3 0.0-0.5 H BASOPHIL # (test code = BA#) 0.06 K/mm3 0.0-0.2 N MANUAL DIFF REQUIRED (test code = MDIFF) NO, ONLY SCAN NEEDED DIFFERENTIAL [id number] 04:37:00* Test Item Value Reference Range Interpretation Comments STAIN ACCEPTABILITY (test code = STN ACCEPTABLE) CABOT RINGS (test code = CAB) MORPHOLOGY COMMENT (test code = MOC) PLATELET ESTIMATE (test code = PLTEST) PLATELET MORPHOLOGY (test code = PLTMORPH) CBC W/AUTO [id number] 04:37:00* Test Item Value Reference Range Interpretation Comments WHITE BLOOD CELL (test code = WBC) 24.5 K/mm3 4.5-12.5 H RED BLOOD CELL (test code = RBC) 4.39 mill/mm3 3.7-5.2 N HEMOGLOBIN (test code = HGB) 11.0 gram/dL 11.5-15.5 L HEMATOCRIT (test code = HCT) 34.6 % 36.0-46.0 L MEAN CELL VOLUME (test code = MCV) 78.8 fL 80-98 L MEAN CELL HGB (test code = MCH) 25.1 picogram 27.0-33.0 L MEAN CELL HGB CONCETRATION (test code = MCHC) 31.8 gram/dL 33.0-36. 0 L RED CELL DISTRIBUTION WIDTH (test code = RDW) 13.9 % 11.6-16. 2 N RED CELL DISTRIBUTION WIDTH SD (test code = RDW-SD) 40.4 fL 37 .0-51.0 N PLATELET COUNT (test code = PLT) 337 K/mm3 150-450 N MEAN PLATELET VOLUME (test code = MPV) 10.1 fL 6.7-11.0 N NEUTROPHIL % (test code = NT%) 61.7 % 39.0-69.0 N LYMPHOCYTE % (test code = LY%) 4.6 % 25.0-55.0 L MONOCYTE % (test code = MO%) 4.6 % 0.0-10.0 N EOSINOPHIL % (test code = EO%) 27.5 % 0.0-5.0 H BASOPHIL % (test code = BA%) 0.2 % 0.0-1.0 N NEUTROPHIL # (test code = NT#) 15.11 K/mm3 1.8-7.7 H LYMPHOCYTE # (test code = LY#) 1.13 K/mm3 1.0-5.0 N MONOCYTE # (test code = MO#) 1.12 K/mm3 0-0.8 H EOSINOPHIL # (test code = EO#) 6.74 K/mm3 0.0-0.5 H BASOPHIL # (test code = BA#) 0.06 K/mm3 0.0-0.2 N MANUAL DIFF REQUIRED (test code = MDIFF) NO, ONLY SCAN NEEDED DIFFERENTIAL [id number] 04:37:00* Test Item Value Reference Range Interpretation Comments STAIN ACCEPTABILITY (test code = STN ACCEPTABLE) CABOT RINGS (test code = CAB) MORPHOLOGY COMMENT (test code = MOC) PLATELET ESTIMATE (test code = PLTEST) PLATELET MORPHOLOGY (test code = PLTMORPH) URINALYSIS [id number] 02:41:00* Test Item Value Reference Range Interpretation Comments UA COLOR (test code = COLU) ORANGE YELLOW A UA APPEARANCE (test code = APPU) HAZY CLEAR A UA GLUCOSE DIPSTICK (test code = DGLUU) norm mg/dL NEGATIVE UA BILIRUBIN DIPSTICK (test code = BILU) 1 mg/dL NEGATIVE A UA KETONE DIPSTICK (test code = KETU) neg mg/dL NEGATIVE UA SPECIFIC GRAVITY (test code = SGU) 1.015 1.001-1.035 UA BLOOD DIPSTICK (test code = JOHNSON) neg Tariq/uL NEGATIVE UA PH DIPSTICK (test code = DEJON) 5.0 5.0-8.0 UA PROTEIN DIPSTICK (test code = PROU) 30 (1+) mg/dL Neg-15 A UA UROBILINIOGEN DIPSTICK (test code = URO) 4 mg/dL (2+) mg/dL 0.0 -0.2 A UA NITRITE DIPSTICK (test code = OK) NEGATIVE NEGATIVE UA LEUKOCYTE ESTERASE DIPSTICK (test code = LEUU) 25 Kirill/uL (Tra ce) uL NEGATIVE A UA WBC (test code = WBCU) 3-5 per HPF 0-5 UA RBC (test code = RBCU) 0-2 per HPF 0-5 UA EPITHELIAL CELLS (test code = EPIU) Few (2-5/hpf) per HPF Few UA BACTERIA (test code = BACU) MANY per HPF NONE A UA MUCUS (test code = MUCU) MODERATE per LPF NONE-FEW A Urine Source? Clean CatchURINALYSIS [id number] 02:38:00* Test Item Value Reference Range Interpretation Comments UA COLOR (test code = COLU) ORANGE YELLOW A UA APPEARANCE (test code = APPU) HAZY CLEAR A UA GLUCOSE DIPSTICK (test code = DGLUU) norm mg/dL NEGATIVE UA BILIRUBIN DIPSTICK (test code = BILU) 1 mg/dL NEGATIVE A UA KETONE DIPSTICK (test code = KETU) neg mg/dL NEGATIVE UA SPECIFIC GRAVITY (test code = SGU) 1.015 1.001-1.035 UA BLOOD DIPSTICK (test code = JOHNSON) neg Tariq/uL NEGATIVE UA PH DIPSTICK (test code = DEJON) 5.0 5.0-8.0 UA PROTEIN DIPSTICK (test code = PROU) 30 (1+) mg/dL Neg-15 A UA UROBILINIOGEN DIPSTICK (test code = URO) 4 mg/dL (2+) mg/dL 0.0 -0.2 A UA NITRITE DIPSTICK (test code = OK) NEGATIVE NEGATIVE UA LEUKOCYTE ESTERASE DIPSTICK (test code = LEUU) 25 Kirill/uL (Tra ce) uL NEGATIVE A UA WBC (test code = WBCU) per HPF 0-5 UA RBC (test code = RBCU) per HPF 0-5 UA EPITHELIAL CELLS (test code = EPIU) per HPF Few UA BACTERIA (test code = BACU) per HPF NONE Urine Source? Clean CatchBASIC METABOLIC [id number] 02:38:00* Test Item Value Reference Range Interpretation Comments SODIUM (test code = NA) 135 mmol/L 136-145 L POTASSIUM (test code = K) 3.7 mmol/L 3.5-5.1 N CHLORIDE (test code = CL) 101 mmol/L 101-109 N CARBON DIOXIDE (test code = CO2) 24.1 mmol/L 21-32 N ANION GAP (test code = GAP) 14 mmol/L 10-20 N GLUCOSE (test code = GLU) 142 mg/dL 74-106 H BLOOD UREA NITROGEN (test code = BUN) 17 mg/dL 3-21 N GLOMERULAR FILTRATION RATE (test code = GFR) > 60 mL/min >=60 Estimated GFR by using Modified MDRD formula.Chronic kidney disease is defined as either kidney damageor GFR <60 mL/min/1.73 m2 for >3 months. CREATININE (test code = CREAT) 1.05 mg/dL 0.55-1.3 N BUN/CREATININE RATIO (test code = BUN/CREA) 16.2 10-20 N CALCIUM (test code = CA) 8.2 mg/dL 8.4-10.2 L HEPATIC FUNCTION [id number] 02:38:00* Test Item Value Reference Range Interpretation Comments TOTAL PROTEIN (test code = PROT) 6.6 g/dL 6.5-8.4 N ALBUMIN (test code = ALB) 2.4 g/dL 3.4-4.8 L GLOBULIN (test code = GLOB) 4.2 G/DL 1-10 N ALBUMIN/GLOBULIN RATIO (test code = A/G) 0.57 RATIO 0.75-1.50 L BILIRUBIN TOTAL (test code = BILT) 0.50 mg/dL 0.0-1.0 N BILIRUBIN DIRECT (test code = BILD) 0.10 mg/dL 0.0-0.30 N SGOT/AST (test code = AST) 3 U/L 6-32 L SGPT/ALT (test code = ALT) 31 U/L 12-78 N N ote: Change in REFERENCE RANGE due to new reagent method. ALKALINE PHOSPHATASE TOTAL (test code = ALKP) 104 U/L 38-126 N BASIC METABOLIC [id number] 02:23:00* Test Item Value Reference Range Interpretation Comments SODIUM (test code = NA) 135 mmol/L 136-145 L POTASSIUM (test code = K) 3.7 mmol/L 3.5-5.1 N CHLORIDE (test code = CL) 101 mmol/L 101-109 N CARBON DIOXIDE (test code = CO2) 24.1 mmol/L 21-32 N ANION GAP (test code = GAP) 14 mmol/L 10-20 N BLOOD UREA NITROGEN (test code = BUN) 17 mg/dL 3-21 N GLOMERULAR FILTRATION RATE (test code = GFR) > 60 mL/min >=60 Estimated GFR by using Modified MDRD formula.Chronic kidney disease is defined as either kidney damageor GFR <60 mL/min/1.73 m2 for >3 months. CREATININE (test code = CREAT) 1.05 mg/dL 0.55-1.3 N BUN/CREATININE RATIO (test code = BUN/CREA) 16.2 10-20 N CALCIUM (test code = CA) 8.2 mg/dL 8.4-10.2 L HEPATIC FUNCTION [id number] 02:23:00* Test Item Value Reference Range Interpretation Comments TOTAL PROTEIN (test code = PROT) 6.6 g/dL 6.5-8.4 N ALBUMIN (test code = ALB) 2.4 g/dL 3.4-4.8 L GLOBULIN (test code = GLOB) 4.2 G/DL 1-10 N ALBUMIN/GLOBULIN RATIO (test code = A/G) 0.57 RATIO 0.75-1.50 L BILIRUBIN TOTAL (test code = BILT) 0.50 mg/dL 0.0-1.0 N BILIRUBIN DIRECT (test code = BILD) 0.10 mg/dL 0.0-0.30 N SGOT/AST (test code = AST) 3 U/L 6-32 L SGPT/ALT (test code = ALT) 31 U/L 12-78 N N ote: Change in REFERENCE RANGE due to new reagent method. ALKALINE PHOSPHATASE TOTAL (test code = ALKP) 104 U/L 38-126 N HCG SERUM [id number] 02:10:00* Test Item Value Reference Range Interpretation Comments HCG SERUM BETA (test code = HCG) 0.0 mIU/ml 0-5.0 N INTERPRETATION:B-HCG LEVELS <6 SHOULD BE CONSIDERED "NEGATIVE."VALUES BETWEEN 6-25 MIU/ML NEED TO BE RETESTED WITHIN 48hrs. 0-1 WEEKS AFTER CONCEPTION 0-50 MIU/ML1-2 WEEKS AFTER CONCEPTION 40-300 MIU/ML2-3 WEEKS AFTER CONCEPTION 100-1,000 MIU/ML3-4 WEEKS AFTER CONCEPTION 500-6,000 MIU/ML1-2 MONTHS AFTER CONCEPTION 5,000-200,000 MIU/ML2- 3 MONTHS AFTER CONCEPTION 10,000-100,000 MIU/ML2ND TRIMESTER 3,000-50,000 MIU/ML3RD TRIMESTER 1,000- 50,000 MIU/ML LACTIC [id number] 02:07:00* Test Item Value Reference Range Interpretation Comments LACTIC ACID (test code = LACT) 0.9 MMOL/L 0.4-1.9 N CBC W/AUTO [id number] 01:55:00* Test Item Value Reference Range Interpretation Comments WHITE BLOOD CELL (test code = WBC) 24.5 K/mm3 4.5-12.5 H RED BLOOD CELL (test code = RBC) 4.39 mill/mm3 3.7-5.2 N HEMOGLOBIN (test code = HGB) 11.0 gram/dL 11.5-15.5 L HEMATOCRIT (test code = HCT) 34.6 % 36.0-46.0 L MEAN CELL VOLUME (test code = MCV) 78.8 fL 80-98 L MEAN CELL HGB (test code = MCH) 25.1 picogram 27.0-33.0 L MEAN CELL HGB CONCETRATION (test code = MCHC) 31.8 gram/dL 33.0-36. 0 L RED CELL DISTRIBUTION WIDTH (test code = RDW) 13.9 % 11.6-16. 2 N RED CELL DISTRIBUTION WIDTH SD (test code = RDW-SD) 40.4 fL 37 .0-51.0 N PLATELET COUNT (test code = PLT) 337 K/mm3 150-450 N MEAN PLATELET VOLUME (test code = MPV) 10.1 fL 6.7-11.0 N NEUTROPHIL % (test code = NT%) 61.7 % 39.0-69.0 N LYMPHOCYTE % (test code = LY%) 4.6 % 25.0-55.0 L MONOCYTE % (test code = MO%) 4.6 % 0.0-10.0 N EOSINOPHIL % (test code = EO%) 27.5 % 0.0-5.0 H BASOPHIL % (test code = BA%) 0.2 % 0.0-1.0 N NEUTROPHIL # (test code = NT#) 15.11 K/mm3 1.8-7.7 H LYMPHOCYTE # (test code = LY#) 1.13 K/mm3 1.0-5.0 N MONOCYTE # (test code = MO#) 1.12 K/mm3 0-0.8 H EOSINOPHIL # (test code = EO#) 6.74 K/mm3 0.0-0.5 H BASOPHIL # (test code = BA#) 0.06 K/mm3 0.0-0.2 N - XR CHEST 1 [id number] 01:49:00 Name: SANTO RAJPUT [facility] : 1985 Age/S:34 /F [address] [facility] Unit#:[id number] Loc: [place] [address] Phys: Lucina Lima MD Dis Date: PHONE #: [phone] Status: PRE ER FAX #: [phone] Exam Date: 10/19/2019 Reason: COUGH EXAMS: CPT CODE: [id number] XR CHEST 1 V 66605 EXAM: - XR CHEST 1 V HISTORY: Cough. COMPARISON: None available time of interpretation. FINDINGS: Single AP view of the chest is provided. Heart size and vascularity are within normal limits. The lungs are clear of focal consolidation. No effusion, pneumothorax, or acute osseous abnormality. IMPRESSION: No radiographic evidence of acute cardiopulmonary process. at 0149 Reported and signed by: Bereket Teran MD CC: Jordon Ricardo MD Technologist: THANH SANDOVAL RT(R),RDMS,CT Trnscrpt Data: 10/19/2019 (0149) [email or web address] Orig Print D/T: S: 10/19/2019 (0153) PAGE 1 Signed Report SURGICAL SPECIMENS 2019-03-15 10:12:00 RUN DATE: 03/15/19 [facility] *LIVE* PAGE 1 RUN TIME: 1012 Specimen Inqui ry RUN USER: INTERFACE PATIENT: SANTO RAJPUT ACCT #: [id number] LOC: U #: [id number] AGE/SX: 33/F ROOM: RE03/12/19[facility] DR: Trini Miles : [birth year] BED: DIS: STATUS: [facility] TLOC: SPEC #: [id number] RECD: 03/13/19 STATUS: [facility] #: [id number] LAURA: 03/13/19 [facility] DR: Trini Miles ENTERED: 03/14/19 SP TYPE: SURG SPEC OTHR DR: Livan Ricardo MD ORDERED: GM LEVEL 4 CODES: [id number] - PELVIS, NOS COPIES TO: Trini Roa MD [address] [place] [address] Jordon Ricardo MD [address] [facility] [place] [address] PROCEDURES: GM LEVEL 4 (Incomplete) TISSUES: 1. PELVIS, NOS - Cul-de-sac, peritoneum , bx. FINAL DIAGNOSIS Cul-de-sac, peritoneum, bx.: Endometriosis. GROSS AND MICROSCOPIC GROSS EXAMINATION: Received is/are the specimen/s designated with the appropriate dimensions and block designation: 1. Cul-de-sac, peritoneum, bx.: 1 segment of pink-delgado t issue, measuring up to 0.4 cm. in greatest dimension. MICROSCOPIC EXAMINATION: Sections of the "Cul-de-sac, periton eum, bx." reveal changes of endometriosis. Endometrial glands and stroma are present admixed with fibrous adhesions. POST-OP DIAGNOSIS Pelvic pain CONTINUED ON NEXT PAGE RUN DATE: 03/15/19 [facility] *LIVE* PAGE 2 RUN TIME: 1012 Specimen Inquiry RUN USER: INTERFACE SPEC #: [id number] PATIENT: SANTO RAJPUT #[id number] (Continued)- PRE-OP DIAGNOSIS Pelvic pain Signed SHERRY Richard ON FILE Delia Saldaña MD 03/15/19 1012 END OF REPORT BASIC METABOLIC IGGOJ0512-63-05 09:46:00* Test Item Value Reference Range Interpretation Comments SODIUM (test code = NA) 140 mEq/L 134-147 N POTASSIUM (test code = K) 3.6 mEq/L 3.4-5.0 N CHLORIDE (test code = CL) 105 mEq/L 100-108 N CARBON DIOXIDE (test code = CO2) 31 mEq/L 21-33 N ANION GAP (test code = GAP) 8 0-20 N GLUCOSE (test code = GLU) 68 mg/dL 70-110 L BLOOD UREA NITROGEN (test code = BUN) 13 mg/dL 7-18 N GLOMERULAR FILTRATION RATE (test code = GFR) 117.3 105-110 H Units of measure = ml/min/1.73 m2 CREATININE (test code = CREAT) 0.7 mg/dL 0.6-1.3 N CALCIUM (test code = CA) 9.0 mg/dL 8.0-10.5 N HCG SERUM [id number] 09:46:00* Test Item Value Reference Range Interpretation Comments HCG SERUM QUAL (test code = HCGQL) SERUM NEGATIVE NEGATIVE BASIC METABOLIC [id number] 09:42:00* Test Item Value Reference Range Interpretation Comments SODIUM (test code = NA) mEq/L 134-147 POTASSIUM (test code = K) mEq/L 3.4-5.0 CHLORIDE (test code = CL) mEq/L 100-108 CARBON DIOXIDE (test code = CO2) mEq/L 21-33 ANION GAP (test code = GAP) 0-20 GLUCOSE (test code = GLU) mg/dL 70-110 BLOOD UREA NITROGEN (test code = BUN) mg/dL 7-18 GLOMERULAR FILTRATION RATE (test code = GFR) 105-110 CREATININE (test code = CREAT) mg/dL 0.6-1.3 CALCIUM (test code = CA) mg/dL 8.0-10.5 HCG SERUM [id number] 09:42:00* Test Item Value Reference Range Interpretation Comments HCG SERUM QUAL (test code = HCGQL) SERUM NEGATIVE NEGATIVE PROTHROMBIN [id number] 09:39:00* Test Item Value Reference Range Interpretation Comments PROTHROMBIN TIME PATIENT (test code = PTP) 12.4 SECONDS 9.3-12.9 N INTERNATIONAL NORMAL RATIO (test code = INR) 1.1 0.8-1.2 N TARGET INR BY INDICATION Indication INR1. Prophylaxis of venous thrombosis 2.0 - 3.0 (orthopedic surgery), Prophylaxis of venous thrombosis (other than high-risk surgery), Treatment of Deep Vein Thrombosis/Pulmonary Embolism, Prevention of systemic embolism - Tissue heart valves, Acute Myocardial Infarction (to prevent systemic embolism), Valvular heart disease, Atrial Fibrillation, Bileaflet mechanical valve in aortic position.2. Mechanical prosthetic valves (high risk), 2.5 - 3.5 Presence of Lupus Anticoagulant or Antiphospholipid Antibodies, Prevention of systemic embolism - Acute Myocardial Infarction (to prevent recurrent infarct). THROMBOPLASTIN TIME NEPJYKW5616-35-53 09:39:00* Test Item Value Reference Range Interpretation Comments THROMBOPLASTIN TIME PARTIAL (test code = PTT) 30.7 Seconds 25.0-39. 5 N Therapeutic Range: 50.4 - 88.3 Seconds Effective 10/23/2018 CBC W/AUTO [id number] 09:35:00* Test Item Value Reference Range Interpretation Comments WHITE BLOOD CELL (test code = WBC) 4.32 x10 3/uL 4.5-11.0 L RED BLOOD CELL (test code = RBC) 4.72 x10 6/uL 3.54-5.02 N HEMOGLOBIN (test code = HGB) 12.5 g/dL 11.0-15.0 N HEMATOCRIT (test code = HCT) 40.2 % 33.0-45.0 N MEAN CELL VOLUME (test code = MCV) 85.2 fL 81.0-99.0 N MEAN CELL HGB (test code = MCH) 26.5 pg 27.0-33.0 L MEAN CELL HGB CONCETRATION (test code = MCHC) 31.1 g/dL 33.0-37. 0 L RED CELL DISTRIBUTION WIDTH CV (test code = RDW) 15.9 % 11.5- 14.5 H RED CELL DISTRIBUTION WIDTH SD (test code = RDW-SD) 49.5 fL 37 .0-54.0 N PLATELET COUNT (test code = PLT) 197 x10 3/uL 150-400 N MEAN PLATELET VOLUME (test code = MPV) 11.2 fL 7.0-9.0 H NEUTROPHIL % (test code = NT%) 51.2 % 56.0-77.0 L IMMATURE GRANULOCYTE % (test code = IG%) 0.2 % 0.0-2.0 N LYMPHOCYTE % (test code = LY%) 32.2 % 14.0-32.0 H MONOCYTE % (test code = MO%) 11.3 % 4.8-9.0 H EOSINOPHIL % (test code = EO%) 4.2 % 0.3-3.7 H BASOPHIL % (test code = BA%) 0.9 % 0.0-2.0 N NUCLEATED RBC % (test code = NRBC%) 0.0 % 0-0 N NEUTROPHIL # (test code = NT#) 2.21 x10 3/uL 2.0-7.6 N IMMATURE GRANULOCYTE # (test code = IG#) 0.01 x10 3/uL 0.00-0.03 N LYMPHOCYTE # (test code = LY#) 1.39 x10 3/uL 1.0-3.8 N MONOCYTE # (test code = MO#) 0.49 x10 3/uL 0.1-0.8 N EOSINOPHIL # (test code = EO#) 0.18 x10 3/uL 0.0-0.2 N BASOPHIL # (test code = BA#) 0.04 x10 3/uL 0.0-0.2 N NUCLEATED RBC # (test code = NRBC#) 0.00 x10 3/uL 0.0-0.1 N MANUAL DIFF REQUIRED (test code = MDIFF) NO URINALYSIS [id number] 09:35:00* Test Item Value Reference Range Interpretation Comments UA COLOR (test code = COLU) YELLOW YEL/STRAW UA APPEARANCE (test code = APPU) CLEAR CLEAR UA GLUCOSE DIPSTICK (test code = DGLUU) NEGATIVE NEGATIVE UA BILIRUBIN DIPSTICK (test code = BILU) NEGATIVE NEGATIVE UA KETONE DIPSTICK (test code = KETU) NEGATIVE NEGATIVE UA SPECIFIC GRAVITY (test code = SGU) 1.024 1.005-1.030 N UA BLOOD DIPSTICK (test code = JOHNSON) NEGATIVE NEGATIVE UA PH DIPSTICK (test code = DEJON) 5.0 5.0-7.0 N UA PROTEIN DIPSTICK (test code = PROU) NEGATIVE NEGATIVE UA UROBILINIOGEN DIPSTICK (test code = URO) 0.2 mg/dL 0.2-1.0 UA NITRITE DIPSTICK (test code = OK) NEGATIVE NEGATIVE UA LEUKOCYTE ESTERASE DIPSTICK (test code = LEUU) NEGATIVE NEGA TIVE UA RBC (test code = RBCU) 4-10 RBC/HPF 0-3 UA WBC NO REFLEX (test code = WBCUCL) 0-3 WBC/HPF 0-3 UA BACTERIA (test code = BACU) TRACE /HPF NONE SEEN UA SQUAMOUS CELLS (test code = SQU) 6-10 /HPF NONE SEEN A UA MUCUS (test code = MUCU) 2+ /LPF NONE SEEN A Platelet Kvbvcavj2964-63-25 06:51:00* Test Item Value Reference Range Interpretation Comments Platelet Estimate (test code = 79546-5) ADEQUATE [facility] CenterPlatelet Morphology Yebhlon4119-85-16 06:51:00* Test Item Value Reference Range Interpretation Comments Platelet Morphology Comment (test code = 30805-0) NORMAL [facility] CenterAnisocytosis2019-03-17 06:51:00* Test Item Value Reference Range Interpretation Comments Anisocytosis (test code = 702-1) SLIGHT [facility] CenterCrenated Vpra4593-42-76 06:51:00* Test Item Value Reference Range Interpretation Comments Crenated Cell (test code = 7790-9) SLIGHT [facility] CenterRed Cell Morphology Shouvfj5464-70-47 06:51:00* Test Item Value Reference Range Interpretation Comments Red Cell Morphology Comment (test code = 6742-1) NORMAL [facility] Hospitalodium Vkrfu9145-70-91 06:05:00* Test Item Value Reference Range Interpretation Comments Sodium Level (test code = 2951-2) 137 136-145 [facility] CenterPotassium Oyznx3830-77-43 06:05:00* Test Item Value Reference Range Interpretation Comments Potassium Level (test code = 2823-3) 3.6 3.5-5.1 [facility] CenterChloride Kjmdk7631-16-32 06:05:00* Test Item Value Reference Range Interpretation Comments Chloride Level (test code = 2075-0) 105 98-107 [facility] CenterCarbon Dioxide Hnqtp2358-54-11 06:05:00* Test Item Value Reference Range Interpretation Comments Carbon Dioxide Level (test code = 2028-9) 25 22-29 [facility] CenterAnion Oaj0729-30-76 06:05:00* Test Item Value Reference Range Interpretation Comments Anion Gap (test code = 74067-0) 10.6 8-16 [facility] CenterBlood Urea Daycmilq4867-29-34 06:05:00* Test Item Value Reference Range Interpretation Comments Blood Urea Nitrogen (test code = 3094-0) 15 7-26 [facility] CenterCreatinine2019-03-17 06:05:00* Test Item Value Reference Range Interpretation Comments Creatinine (test code = 2160-0) 0.72 0.57-1.11 [facility] CenterBUN/Creatinine Zfhpl6299-04-88 06:05:00* Test Item Value Reference Range Interpretation Comments BUN/Creatinine Ratio (test code = 3097-3) 21 6-25 [facility] CenterEstimat Glomerular Filtration Rate 2018-09-23 06:05:00* Test Item Value Reference Range Interpretation Comments Estimat Glomerular Filtration Rate (test code = 054213161) > 60 >60 Ranges were taken from the National Kidney Disease Education Program and the [facility] Kidney Foundation literature.Reference ranges:60 or greater: Ntnhpv68-73 ( for 3 consecutive months): Chronic kidney disease 15 or less: Kidney failureFort [facility] Regional Medical CenterGlucose Efmdp2856-56-81 06:05:00* Test Item Value Reference Range Interpretation Comments Glucose Level (test code = IQL6696) 94 74-118 [facility] CenterCalcium Tehhh5940-47-80 06:05:00* Test Item Value Reference Range Interpretation Comments Calcium Level (test code = 32425-1) 8.4 8.4-10.2 [facility] CenterTotal Riiubidvu4682-96-43 06:05:00* Test Item Value Reference Range Interpretation Comments Total Bilirubin (test code = 1975-2) 0.9 0.2-1.2 [facility] CenterAspartate Amino Transf (AST/SGOT) 2018-09-23 06:05:00* Test Item Value Reference Range Interpretation Comments Aspartate Amino Transf (AST/SGOT) (test code = Aspartate Amino Transf (AST/SGOT)) 58 5-34 H [facility] CenterAlanine Aminotransferase (ALT/SGPT) 2018-09-23 06:05:00* Test Item Value Reference Range Interpretation Comments Alanine Aminotransferase (ALT/SGPT) (test code = 1742-6) 34 0-55 [facility] CenterTotal Fssxpre6425-12-90 06:05:00* Test Item Value Reference Range Interpretation Comments Total Protein (test code = 2885-2) 6.7 6.5-8.1 [facility] CenterAlbumin2019-03-17 06:05:00* Test Item Value Reference Range Interpretation Comments Albumin (test code = 1751-7) 3.6 3.5-5.0 [facility] CenterGlobulin2019-03-17 06:05:00* Test Item Value Reference Range Interpretation Comments Globulin (test code = 33717-5) 3.1 2.3-3.5 [facility] CenterAlbumin/Globulin Bobfx8698-64-73 06:05:00 * Test Item Value Reference Range Interpretation Comments Albumin/Globulin Ratio (test code = 1759-0) 1.2 0.8-2.0 [facility] CenterAlkaline Fmzgfgrsrpf9548-05-53 06:05:00* Test Item Value Reference Range Interpretation Comments Alkaline Phosphatase (test code = 6768-6) 34 40-150 L [facility] CenterWhite Blood Itcnt7591-68-88 05:27:00* Test Item Value Reference Range Interpretation Comments White Blood Count (test code = 6690-2) 5.19 4.8-10.8 [facility] CenterRed Blood Axsfy4751-85-64 05:27:00* Test Item Value Reference Range Interpretation Comments Red Blood Count (test code = 789-8) 2.48 3.6-5.1 L [facility] CenterHemoglobin2019-03-17 05:27:00* Test Item Value Reference Range Interpretation Comments Hemoglobin (test code = 08054-1) 7.5 12.0-16.0 L [facility] CenterHematocrit2019-03-17 05:27:00* Test Item Value Reference Range Interpretation Comments Hematocrit (test code = 4544-3) 22.3 34.2-44.1 L Results called to [] at 0525 on 09/23/18 by Rosario Staples RB [place].[facility] CenterMean Corpuscular Kwdgli3004-04-10 05:27:00* Test Item Value Reference Range Interpretation Comments Mean Corpuscular Volume (test code = 787-2) 89.9 81-99 [facility] CenterMean Corpuscular Owdiodhhbp8426-33-87 05:27:00* Test Item Value Reference Range Interpretation Comments Mean Corpuscular Hemoglobin (test code = 785-6) 30.2 28-32 [facility] CenterMean Corpuscular Hemoglobin Concent 2018-09-23 05:27:00* Test Item Value Reference Range Interpretation Comments Mean Corpuscular Hemoglobin Concent (test code = 786-4) 33.6 31-35 [facility] CenterRed Cell Distribution Rplqx8770-00-40 05:27:00* Test Item Value Reference Range Interpretation Comments Red Cell Distribution Width (test code = 35957-9) 26.6 11.7 -14.4 H [facility] CenterPlatelet Pqalz0279-24-20 05:27:00* Test Item Value Reference Range Interpretation Comments Platelet Count (test code = 777-3) 144 140-360 [facility] CenterNeutrophils (%) (Auto)2018-09-23 05:27:00 * Test Item Value Reference Range Interpretation Comments Neutrophils (%) (Auto) (test code = 13064-5) 41.5 38.7-80.0 [facility] CenterLymphocytes (%) (Auto)2018-09-23 05:27:00 * Test Item Value Reference Range Interpretation Comments Lymphocytes (%) (Auto) (test code = 736-9) 51.8 18.0-39.1 H [facility] CenterMonocytes (%) (Auto)2018-09-23 05:27:00* Test Item Value Reference Range Interpretation Comments Monocytes (%) (Auto) (test code = 5905-5) 4.0 4.4-11.3 L [facility] CenterEosinophils (%) (Auto)2018-09-23 05:27:00 * Test Item Value Reference Range Interpretation Comments Eosinophils (%) (Auto) (test code = 713-8) 1.5 0.0-6.0 [facility] CenterBasophils (%) (Auto)2018-09-23 05:27:00* Test Item Value Reference Range Interpretation Comments Basophils (%) (Auto) (test code = 706-2) 0.2 0.0-1.0 [facility] CenterIM GRANULOCYTES %2018-09-23 05:27:00* Test Item Value Reference Range Interpretation Comments IM GRANULOCYTES % (test code = IM GRANULOCYTES %) 1.0 0.0- 1.0 [facility] CenterNeutrophils # (Auto)2018-09-23 05:27:00* Test Item Value Reference Range Interpretation Comments Neutrophils # (Auto) (test code = 751-8) 2.2 2.1-6.9 [facility] CenterLymphocytes # (Auto)2018-09-23 05:27:00* Test Item Value Reference Range Interpretation Comments Lymphocytes # (Auto) (test code = 99065-9) 2.7 1.0-3.2 [facility] CenterMonocytes # (Auto)2018-09-23 05:27:00* Test Item Value Reference Range Interpretation Comments Monocytes # (Auto) (test code = 742-7) 0.2 0.2-0.8 [facility] CenterEosinophils # (Auto)2018-09-23 05:27:00* Test Item Value Reference Range Interpretation Comments Eosinophils # (Auto) (test code = 711-2) 0.1 0.0-0.4 [facility] CenterBasophils # (Auto)2018-09-23 05:27:00* Test Item Value Reference Range Interpretation Comments Basophils # (Auto) (test code = 704-7) 0.0 0.0-0.1 [facility] CenterAbsolute Immature Granulocyte (auto 2018-09-23 05:27:00* Test Item Value Reference Range Interpretation Comments Absolute Immature Granulocyte (auto (peace t code = Absolute Immature Granulocyte (auto) 0.05 0-0.1 [facility] CenterDifferential Total Cells Counted 2018-09-22 13:15:00* Test Item Value Reference Range Interpretation Comments Differential Total Cells Counted (test code = Differen tial Total Cells Counted) 100 [facility] CenterNeutrophils % (Manual)2018-09-22 13:15:00 * Test Item Value Reference Range Interpretation Comments Neutrophils % (Manual) (test code = 05251-3) 70 40-74 [facility] CenterLymphocytes % (Manual)2018-09-22 13:15:00 * Test Item Value Reference Range Interpretation Comments Lymphocytes % (Manual) (test code = 737-7) 23 19-48 [facility] CenterMonocytes % (Manual)2018-09-22 13:15:00* Test Item Value Reference Range Interpretation Comments Monocytes % (Manual) (test code = 744-3) 4 3.4-9.0 [facility] CenterEosinophils % (Manual)2018-09-22 13:15:00 * Test Item Value Reference Range Interpretation Comments Eosinophils % (Manual) (test code = 714-6) 1 0-7 [facility] CenterBasophils % (Manual)2018-09-22 13:15:00* Test Item Value Reference Range Interpretation Comments Basophils % (Manual) (test code = 98786-3) 2 0-1.5 H [facility] CenterPoikilocytosis2019-03-16 13:15:00* Test Item Value Reference Range Interpretation Comments Poikilocytosis (test code = 779-9) MODERATE [facility] CenterTear Drop Fatbl3370-68-03 13:15:00* Test Item Value Reference Range Interpretation Comments Tear Drop Cells (test code = 7791-7) MODERATE [facility] CenterElliptocytes2019-03-16 13:15:00* Test Item Value Reference Range Interpretation Comments Elliptocytes (test code = 03709-7) MODERATE [facility] Hospitalchistocytes2019-03-16 13:15:00* Test Item Value Reference Range Interpretation Comments Schistocytes (test code = 800-3) FEW [facility] CenterTriglycerides Tlnzx6299-88-21 06:31:00* Test Item Value Reference Range Interpretation Comments Triglycerides Level (test code = 2571-8) 99 0-149 [facility] CenterCholesterol Muvtw2142-88-39 06:31:00* Test Item Value Reference Range Interpretation Comments Cholesterol Level (test code = 2093-3) 171 0-199 Less than 200 mg/dL Low Mfhm335 - 239 mg/dL Borderline Bpnn760 m g/dl and greater High Risk [facility] CenterLDL Qrpimlfwuwi7792-31-19 06:31:00* Test Item Value Reference Range Interpretation Comments LDL Cholesterol (test code = 2089-1) 107 60-130 [facility] CenterHDL Grsrrbhgfit0383-93-09 06:31:00* Test Item Value Reference Range Interpretation Comments HDL Cholesterol (test code = 2085-9) 44 40-60 [facility] CenterCholesterol/HDL Qpdnr4674-57-46 06:31:00 * Test Item Value Reference Range Interpretation Comments Cholesterol/HDL Ratio (test code = 9830-1) 3.9 3.0-3.6 H [facility] CenterCreatine Kinase QX5131-68-55 06:24:00* Test Item Value Reference Range Interpretation Comments Creatine Kinase MB (test code = 68729-7) 0.20 0-5.0 [facility] CenterTroponin A4567-23-69 06:24:00* Test Item Value Reference Range Interpretation Comments Troponin I (test code = XWF2204) 0.002 0-0.300 [facility] CenterCreatine Izdrve8545-64-71 06:09:00* Test Item Value Reference Range Interpretation Comments Creatine Kinase (test code = 2157-6) 28 29-168 L [facility] CenterCT ABDOMEN/PELVIS C4143-61-34 17:07:00 [facility] [address] [address] Patient Name: SANTO RAJPUT MR #: [id number] : 1985 Age/Sex: 33/F Req #: [id number] Adm Physician: NICOLAS VILLA MD Ordered by: THEO CORRAL MD Report #: [id number] Location: [facility] Room/Bed: [facility] Procedure: [id number] CT/CT ABDOMEN/PELVIS W Exam Date: 09/21/18 Exam Time : 1510 REPORT STATUS: Signed EXA M: CT Abdomen and Pelvis WITH contrast INDICATION: Chest pain, anemia COMP ARISON: None. TECHNIQUE: Abdomen and pelvis were scanned utilizing a multidete ctor helical scanner from the lung base to the pubic symphysis after administr ation of IV contrast. Coronal and sagittal reformations were obtained. Routine protocol was performed. Scan was performed when during portal venous phase. Dose modulation, iterative reconstruction, and/or weight based adjustment of the mA/kV was utilized to reduce the radiation dose to as low as reasonably achievable. IV CONTRAST: 100 mL of Isovue-370 O RAL CONTRAST: Volumen 900 cc RADIATION DOSE: Total DLP: 986.87 mGy *cm Estimated effective dose: (DLP x 0.015 x size factor) mSv COMPLICATIONS: None FINDINGS: LINES and TUBES: None. L OWER THORAX: Minimal atelectasis in the lung bases. Heart size normal. HEP ATOBILIARY: No focal hepatic lesions. No biliary ductal dilation. GAL LBLADDER: No radio-opaque stones or sludge. No wall thickening. SPLEEN: No splenomegaly. PANCREAS: No focal masses or ductal dilatation. ADRE NALS: No adrenal nodules KIDNEYS/URETERS: Kidneys enhance symmetrically . No hydronephrosis. No cystic or solid mass lesions. No stones. GI TRA CT: No abnormal distention, wall thickening, or evidence of bowel obstruction. Moderately large volume of retained stool in the colon. Large volume of flui d in the small bowel with fluid levels. This may be related to oral contrast. No dilatation or evidence for obstruction. No intraluminal filling defect. No wall thickening. Terminal ileum appears unremarkable. Appendix is normal. PELVIC ORGANS/BLADDER: Urinary bladder is moderately distended, extending to the upper pelvic level. The uterus is anteverted. There is a 1.9 cm cyst relat ed to the right adnexa. LYMPH NODES: No lymphadenopathy. VESSELS: Abdo bettina aorta, IVC and portal system unremarkable. PERITONEUM / RETROPERITONE UM: No pneumoperitoneum or ascites. BONES: No acute or suspicious bony lesi ons. SOFT TISSUES: Superficial surrounding soft tissue unremarkable. IMPRESSION: 1. No CT evidence for acute abdominal or pelvic patho logy. 2. No bowel dilatation or evidence for obstruction. Moderate retaine d stool throughout the colon may be seen with constipation. 3. 3 the uri nary bladder is distended. Staff: Moira Signed by: Dr. Jayce allan M.D. on 09/21/2018 5:19 PM Dictated By: JAYCE NETTLES MD [facility] Signed By: JAYCE NETTLES MD on 09/21/181718 Transcribed By: LEVON on 09/21 COPY TO: THEO CORRAL MD Gwlvgxpq9577-11-68 12:32:00* Test Item Value Reference Range Interpretation Comments Ferritin (test code = 2276-4) 166.20 4.63-204.00 [facility] CenterTotal Iron Binding Wsnwfhpt1093-50-74 10:27:00* Test Item Value Reference Range Interpretation Comments Total Iron Binding Capacity (test code = 2500-7) 280 261-4 78 --- 09/21/18 0932 ---TIBC previously reported as: 281 ug/dL [facility] CenterTransferrin2019-03-15 09:59:00* Test Item Value Reference Range Interpretation Comments Transferrin (test code = 3034-6) 200 180-382 [facility] CenterFree Thyroxine Uobto5615-62-88 09:59:00* Test Item Value Reference Range Interpretation Comments Free Thyroxine Index (test code = 74559-1) 3.0353 1.4-3.8 [facility] CenterThyroxine (T4)2018-09-21 09:59:00* Test Item Value Reference Range Interpretation Comments Thyroxine (T4) (test code = 3026-2) 10.42 4.5-10.9 Our current method for Total T4 is not recommended for use as the only marker fo r evaluating patients for thyroid disorders.[facility] CenterTriiodothyronine (T3) [id number] 09:59:00* Test Item Value Reference Range Interpretation Comments Triiodothyronine (T3) Uptake (test code = 3050-2) 29.13 22.5 -37.0 [facility] CenterThyroid Stimulating Hormone (TSH) 2018-09-21 09:59:00* Test Item Value Reference Range Interpretation Comments Thyroid Stimulating Hormone (TSH) (test code = 69215-4) 3.157 0.350-4.940 [facility] CenterVitamin B12 [id number] 09:20:00* Test Item Value Reference Range Interpretation Comments Vitamin B12 Level (test code = 36999-0) 8 213-816 L [facility] CenterIron Hhddo7129-94-26 09:11:00* Test Item Value Reference Range Interpretation Comments Iron Level (test code = 2498-4) 124 50-170 [facility] CenterPercent Iron Ihgqkgooat4235-65-54 09:11:00* Test Item Value Reference Range Interpretation Comments Percent Iron Saturation (test code = 2502-3) 44 15-50 [facility] CenterPercent Reticulocyte [id number] 08:34:00* Test Item Value Reference Range Interpretation Comments Percent Reticulocyte Count (test code = 43864-9) 1.5 0.8-2 .2 [facility] CenterU[facility] [id number] 02:32:00* Test Item Value Reference Range Interpretation Comments Urine WBC (test code = 5821-4) NONE 0-5 [facility] Center[facility] [id number] 02:32:00* Test Item Value Reference Range Interpretation Comments Urine RBC (test code = 02298-4) NONE 0-5 [facility] CenterU[facility] Rzgibzye3386-00-85 02:32:00* Test Item Value Reference Range Interpretation Comments Urine Bacteria (test code = 50297-2) FEW NONE [facility] CenterU[facility] Epithelial Uxcaq7088-98-22 02:32:00 * Test Item Value Reference Range Interpretation Comments Urine Epithelial Cells (test code = 97788-5) NONE NONE [facility] CenterNucleated Red Blood Cqiao1055-41-05 02:26:00* Test Item Value Reference Range Interpretation Comments Nucleated Red Blood Cells (test code = 23614-6) 1 [facility] CenterPolychromasia2019-03-15 02:26:00* Test Item Value Reference Range Interpretation Comments Polychromasia (test code = 92048-6) FEW [facility] CenterMicrocytosis2019-03-15 02:26:00* Test Item Value Reference Range Interpretation Comments Microcytosis (test code = 741-9) MODERATE [facility] CenterOvalocytes2019-03-15 02:26:00* Test Item Value Reference Range Interpretation Comments Ovalocytes (test code = 774-0) FEW [facility] CenterU[facility] Dadqu6947-15-62 02:17:00* Test Item Value Reference Range Interpretation Comments Urine Color (test code = 5778-6) YELLOW YELLOW [facility] CenterU[facility] Ouskrtf2600-66-35 02:17:00* Test Item Value Reference Range Interpretation Comments Urine Clarity (test code = 34560-7) CLEAR CLEAR [facility] CenterUrine Specific Fyzmhrm4359-01-79 02:17:00 * Test Item Value Reference Range Interpretation Comments Urine Specific [place] (test code = 5811-5) 1.020 1.010-1.02 5 [facility] CenterU[facility] [id number] 02:17:00* Test Item Value Reference Range Interpretation Comments Urine pH (test code = 48523-5) 6 5-7 [facility] Leukocyte Yabuenrr0139-12-59 02:17:00* Test Item Value Reference Range Interpretation Comments Urine Leukocyte Esterase (test code = 5799-2) NEGATIVE NEGATIVE [facility] Mepgbjf2099-67-06 02:17:00* Test Item Value Reference Range Interpretation Comments Urine Nitrite (test code = 44648-2) NEGATIVE NEGATIVE [facility] Cduhrwt3263-55-27 02:17:00* Test Item Value Reference Range Interpretation Comments Urine Protein (test code = 5804-0) NEGATIVE NEGATIVE [facility] Glucose (UA)2018-09-21 02:17:00* Test Item Value Reference Range Interpretation Comments Urine Glucose (UA) (test code = 2349-9) NEGATIVE NEGATIVE [facility] Zzxqfxn9645-80-89 02:17:00* Test Item Value Reference Range Interpretation Comments Urine Ketones (test code = 74441-5) NEGATIVE NEGATIVE [facility] Rdpmiwwujkzp0200-03-80 02:17:00* Test Item Value Reference Range Interpretation Comments Urine Urobilinogen (test code = 13206-1) 0.2 0.2-1 [facility] Kfbnbhitj9485-00-18 02:17:00* Test Item Value Reference Range Interpretation Comments Urine Bilirubin (test code = 1978-6) NEGATIVE NEGATIVE [facility] Uwhnv3641-26-04 02:17:00* Test Item Value Reference Range Interpretation Comments Urine Blood (test code = 53775-3) TRACE NEGATIVE H [facility] Hospital[facility] [id number] 02:17:00* Test Item Value Reference Range Interpretation Comments Urine Test (test code = 2106-3) NEGATIVE NEGATIVE [facility] HospitalCHEST 2 [id number] 01:20:00 [facility] [address] [address] Patient Name: SANTO RAJPUT MR #: [id number] : 1985 Age/Sex: 33/F Req #: [id number] Adm Physician: Ordered by: TSERING DE LEÓN MD Report #: [id number] Location: ER Room/Bed: Procedure: [id number] DX/CHEST 2 VIEWS Exam Date: 09/21/18 Exam Time: 010 5 REPORT STATUS: Signed EXAMINAT ION: CHEST 2 VIEWS INDICATION: Chest pain, sob, cough. COMPAR MISAEL: None FINDINGS: TUBES and LINES: None. LUNGS: Lungs are well inflated. Lungs are clear. There is no evidence of pneumonia or pulmo nary edema. PLEURA: No pleural effusion or pneumothorax. HEART AND ME DIASTINUM: The cardiomediastinal silhouette is unremarkable. BONES AND SOFT TISSUES: No acute osseous lesion. Soft tissues are unremarkable. UPPER ABDOMEN: No free air under the diaphragm. IMPRESSION: No acute thoracic abnormality. Signed by: Dr. Marlene Barker M.D. on 09/21 1:21 AM Dictated By: ROSANA BARKER MD, MD [id number] Transcribed By: LEVON on 09/21/18 012 1 COPY TO: TSERING DE LEÓN MD CT CHEST W [facility] [address] [address] Patient Name: SANTO RAJPUT MR #: [id number] : 1985 Age/Sex: 32/F Req #: [id number] Adm Physician: Ordered by: DAYLIN LEÓN MD Report #: [id number] Location: ER Room/Bed: Procedure: [id number] CT/CT CHEST W Exam Date: Exam Time: 2024 REPORT STATUS: Signed EXAM : CT CHEST W DATE: 06/30/2017 7:55 PM Time stamp on exam: 2035 hours INDICA TION: Elevated d-dimer, chest pain COMPARISON: None TECHNIQUE: Multidetect or CT scanning of the chest was performed. Coronal and sagittal multiplanar r eformations were obtained. PE protocol performed. IV Contrast: 100 cc Isovue-3 70 CTDIvol has been reviewed. It is below the limits set by the Radiation Prot ocol Committee (RPC). FINDINGS: LUNGS AND AIRWAYS: The trachea and eamon r bronchi are unremarkable. No consolidations or edema. PLEURA: No effus ions or pneumothorax. HEART, MEDIASTINUM, VESSELS: The heart is within norm al size limits. Soft tissue density in the anterior mediastinum is likely rela donna to residual thymic tissue. No thoracic aortic aneurysm. The main pulm onary artery is within normal size limits. No evidence of a pulmonary embolism . UPPER ABDOMEN: Unremarkable. MUSCULOSKELETAL: No acute findings. IMPRESSION: No evidence of a pulmonary embolism. Signed by: Dr. Meghan Briseno M.D. on 06/30/2017 9:12 PM Dictated By: LAYLA Randall 2112 Transcribed By: LEVON on 06/30/172111 COPY TO: DAYLIN LEÓN MD VENOUS DUPLEX LWR [address] [address] Patient Name : SANTO RAJPUT MR #: [id number] : 1985 Age/Sex: 32/F Adm Physician : DAYLIN LEÓN MD Admit Date : Location : ER Room/Bed : REPORT: Cardiology Report DATE OF STUDY: DOPPLER SCAN OF THE LOWER EXTREMITY VEINS ATTENDING PHYSICIAN: Dr Bridget León. Lower extremity veins were interrogated using the duplex sca nning method. The veins were compressed, but there were no definite deep ve nous thromboses. CONCLUSIONS: No definite deep venous thrombosis involv ing the lower extremity veins bilaterally. 10 :48 Job#: [id number] EV cc: DAYLIN LEÓN MD Signature Date Dictated By: GWYN ANDRADE MD Transcribed By: [facility] on 07/02/17 <Electronically signed by GWYN ANDRADE MD><<Signature on File> >07/04/17 0905 COPY TO:
[2020-03-04] MEDS ORDERED: SODIUM CHLORIDE 0.9% 1000ML 1,000 ML IV STA (15:25)
[2020-03-04] MEDS ORDERED: ACETAMINOPHEN 325 MG TAB PO ONE (15:30)
[2020-03-04] MEDS ORDERED: IBUPROFEN 800 MG/8 ML VIAL IV ONE (15:30)
[2020-03-04 15:41] LABS: BASOPHILS # (AUTO) 0.2 (0.0-0.1); BASOPHILS % 0.9 % (0.0-1.0); EOSINOPHILS % 5.8 % (0.0-6.0); HEMATOCRIT 25.4 % (34.2-44.1); LYMPHOCYTES # (AUTO) 2.2 (1.0-3.2); LYMPHOCYTES % 13.2 % (18.0-39.1); MEAN CORPUSCULAR HEMOGLOBIN 19.9 pg (28-32); MEAN CORPUSCULAR HGB CONC 29.9 g/dL (31-35); MEAN CORPUSCULAR VOLUME 66.7 fL (81-99); MONOCYTES # (AUTO) 1.6 (0.2-0.8); NEUTROPHILS # (AUTO) 11.3 (2.1-6.9); PLATELET COUNT 299 x10e3/uL (140-360); RED BLOOD COUNT 3.81 x10e6/uL (3.6-5.1); RED CELL DISTRIBUTION WIDTH 21.2 % (11.7-14.4)
[2020-03-04 15:49] LABS: COLOR,URINE YELLOW (YELLOW)
[2020-03-04 15:50] LABS: BILIRUBIN,URINE MODERATE (NEGATIVE); CLARITY,URINE CLOUDY (CLEAR); KETONES,URINE 1+ (NEGATIVE); LEUKOCYTE ESTERASE ,URINE NEGATIVE (NEGATIVE); NITRITE,URINE NEGATIVE (NEGATIVE); PREGNANCY TEST, URINE NEGATIVE (NEGATIVE); PROTEIN,URINE DIPSTICK 2+ (NEGATIVE); URINE UROBILINOGEN 1 mg/dL (0.2 - 1)
[2020-03-04 15:51] LABS: HEMOGLOBIN 7.6 g/dL (12.0-16.0)
[2020-03-04 16:00] LABS: ALANINE AMINOTRANSFERASE 6 IU/L (0-55); ALBUMIN 2.7 g/dL (3.5-5.0); ALBUMIN/GLOBULIN RATIO 0.5 (0.8-2.0); ALKALINE PHOSPHATASE 75 IU/L (40-150); ANION GAP 17.3 mmol/L (8-16); BLOOD UREA NITROGEN 10 mg/dL (7-26); BUN/CREATININE RATIO 13 (6-25); CALCIUM 8.4 mg/dL (8.4-10.2); CARBON DIOXIDE 20 mmol/L (22-29); CHLORIDE 98 mmol/L (98-107); EST GLOMERULAR FILTRATION RATE > 60 ML/MIN (60-); GLUCOSE 95 mg/dL (74-118); POTASSIUM 4.3 mmol/L (3.5-5.1); SODIUM 131 mmol/L (136-145)
[2020-03-04] MEDS ORDERED: IBUPROFEN 800MG/ 200ML 200 ML IV ONE (16:00)
[2020-03-04 16:01] LABS: BACTERIA,URINE MODERATE /HPF; EPITHELIAL CELLS,URINE MODERATE /LPF; RBC,URINE 0-5 /HPF (0-5)
--- NOTE | 2020-03-04 16:25 | Diagnostic Imaging Report ---
EXAMINATION: CHEST SINGLE (PORTABLE) INDICATION: Shortness of breath, fever COMPARISON: None FINDINGS: LINES/TUBES:None LUNGS:The lungs are moderately inflated. Mild patchy bibasilar opacities. PLEURA:No pleural effusion or pneumothorax. MEDIASTINUM:The cardiomediastinal silhouette appears normal in size and shape. BONES/SOFT TISSUES:No acute osseous injury. ABDOMEN:No free air under the diaphragm. IMPRESSION: Mild bibasilar patchy opacities. In the setting of fever and shortness of breath, pneumonia should be excluded clinically. Signed by: Rony Ricardo MD on 03/04/2020 4:22 PM
--- NOTE | 2020-03-04 16:26 | Emergency Department Note ---
History of Present Illnes History of Present Illness Chief Complaint: COVID PUI History of Present Illness This is a 34 year old female PATIENT IN FROM HOME WITH COMPLAINTS OF SHORTNESS OF BREATH AND FEVER X 3 DAYS, ACHY ALL OVER, MILD NON- PRODUCTIVE COUGH; STATES HAS HAD SIMILAR OFF AND ON X 2 MONTHS; [facility] SHE WAS TESTED IN DECEMBER AND JANUARY FOR COVID AND IT WAS NEGATIVE. PATIENT TACHYPNEIC, ABLE TO SPEAK IN FULL SENTENCES, AMBULATORY WITH SLOW AND STEADY GAIT. Historian: Patient Arrival Mode: Car Clinic Receptionist Required: No Onset (how long ago): day(s) (3) Location: ALL OVER Quality: ACHY Severity: moderate Onset quality: gradual Timing of current episode: intermittent Progression: waxing and waning Chronicity: recurrent Context: Denies recent illness Relieving factors: none Exacerbating factors: none Associated symptoms: Reports cough, Reports fever/chills, Reports shortness of breath Treatments prior to arrival: none (DAYLIN GROVE MD) Past Medical/Family History Physician Review I have reviewed the patient's past medical and family history. Any updates have been documented here. (DAYLIN GROVE MD) Past Medical History Recent Fever: Yes Clinical Suspicion of Infectio: Yes New/Unexplained Change in Ment: No Past Medical History: Migraines, Anemia, Anxiety, Depression Other Medical History: ANEMIA ENDOMETROSIS Spondylosis Other Surgery: (DAYLIN GROVE MD) Social History Smoking Cessation: Unknown if ever smoked Counseling Performed: No Alcohol Use: None Any Illegal Drug Use: No TB Exposure/Symptoms: No Physically hurt or threatened: No (DAYLIN GROVE MD) Family History Family history of heart diseas: No (DAYLIN GROVE MD) Other Last Tetanus: UNK Any Pre-Existing Lines (PICC,: No (DAYLIN GROVE MD) Review of Systems Review of Systems Constitutional: Reports as per HPI, Reports fever, Reports malaise EENTM: Reports no symptoms Cardiovascular: Reports no symptoms Respiratory: Reports as per HPI, Reports cough, Reports dyspnea Gastrointestinal: Reports no symptoms Genitourinary: Reports no symptoms Musculoskeletal: Reports as per HPI Integumentary: Reports no symptoms Neurological: Reports no symptoms Psychological: Reports no symptoms Endocrine: Reports no symptoms Hematological/Lymphatic: Reports no symptoms (DAYLIN GROVE MD) Physical Exam Related Data Allergies: Coded Allergies: peanut (Verified Allergy, Unknown, 06/30/17) Triage Vital Signs Vital Signs Date Time Temp Pulse Resp B/P (MAP) Pulse Ox O2 Delivery O2 Flow Rate FiO2 03/04/20 15:12 102.7 132 32 116/48 94 Room Air Vital signs reviewed: Yes (DAYLIN GROVE MD) Physical Exam CONSTITUTIONAL Constitutional: Present well-developed, Present well-nourished HENT HENT: Present normocephalic, Present atraumatic, Present oropharynx clear/moist, Present nose normal HENT L/R: Present left ext ear normal, Present right ext ear normal EYES Eyes: Reports PERRL, Reports conjunctivae normal NECK Neck: Present ROM normal PULMONARY Pulmonary: Present effort normal, Present breath sounds normal CARDIOVASCULAR Cardiovascular: Present regular rhythm, Present heart sounds normal, Present tachycardia GASTROINTESTINAL Abdominal: Present soft, Present nontender, Present bowel sounds normal GENITOURINARY Genitourinary: Present exam deferred SKIN Skin: Present warm, Present dry MUSCULOSKELETAL Musculoskeletal: Present ROM normal NEUROLOGICAL Neurological: Present alert, Present oriented x 3, Present no gross motor or sensory deficits PSYCHOLOGICAL Psychological: Present mood/affect normal, Present judgement normal (DAYLIN GROVE MD) Results Laboratory Result Diagram: 03/04/20 1522 03/04/20 1522 Laboratory Laboratory Tests Test 03/04/20 15:52 03/04/20 15:22 White Blood Count 16.32 x10e3/uL (4.8-10.8) Red Blood Count 3.81 x10e6/uL (3.6-5.1) Hemoglobin 7.6 g/dL (12.0-16.0) Hematocrit 25.4 % (34.2-44.1) Mean Corpuscular Volume 66.7 fL (81-99) Mean Corpuscular Hemoglobin 19.9 pg (28-32) Mean Corpuscular Hemoglobin Concent 29.9 g/dL (31-35) Red Cell Distribution Width 21.2 % (11.7-14.4) Platelet Count 299 x10e3/uL (140-360) Neutrophils (%) (Auto) 69.0 % (38.7-80.0) Lymphocytes (%) (Auto) 13.2 % (18.0-39.1) Monocytes (%) (Auto) 10.0 % (4.4-11.3) Eosinophils (%) (Auto) 5.8 % (0.0-6.0) Basophils (%) (Auto) 0.9 % (0.0-1.0) Neutrophils # (Auto) 11.3 (2.1-6.9) Lymphocytes # (Auto) 2.2 (1.0-3.2) Monocytes # (Auto) 1.6 (0.2-0.8) Eosinophils # (Auto) 1.0 (0.0-0.4) Basophils # (Auto) 0.2 (0.0-0.1) Absolute Immature Granulocyte (auto 0.18 x10e3/uL (0-0.1) Urine Color Yellow (YELLOW) Urine Clarity Cloudy (CLEAR) Urine pH 6 (5 - 7) Urine Specific [place] 1.025 (1.010-1.025) Urine Protein 2+ (NEGATIVE) Urine Glucose (UA) Negative (NEGATIVE) Urine Ketones 1+ (NEGATIVE) Urine Blood Moderate (NEGATIVE) Urine Nitrite Negative (NEGATIVE) Urine Bilirubin Moderate (NEGATIVE) Urine Urobilinogen 1 mg/dL (0.2 - 1) Urine Leukocyte Esterase Negative (NEGATIVE) Urine RBC 0-5 /HPF (0-5) Urine WBC 6-10 /HPF (0-5) Urine Epithelial Cells Moderate /LPF (NONE) Urine Bacteria Moderate /HPF (NONE) Urine Test Negative (NEGATIVE) Sodium Level 131 mmol/L (136-145) Potassium Level 4.3 mmol/L (3.5-5.1) Chloride Level 98 mmol/L (98-107) Carbon Dioxide Level 20 mmol/L (22-29) Anion Gap 17.3 mmol/L (8-16) Blood Urea Nitrogen 10 mg/dL (7-26) Creatinine 0.80 mg/dL (0.57-1.11) Estimat Glomerular Filtration Rate > 60 ML/MIN (60-) BUN/Creatinine Ratio 13 (6-25) Glucose Level 95 mg/dL (74-118) Calcium Level 8.4 mg/dL (8.4-10.2) Total Bilirubin 0.3 mg/dL (0.2-1.2) Aspartate Amino Transf (AST/SGOT) 38 IU/L (5-34) Alanine Aminotransferase (ALT/SGPT) 6 IU/L (0-55) Alkaline Phosphatase 75 IU/L (40-150) Total Protein 8.3 g/dL (6.5-8.1) Albumin 2.7 g/dL (3.5-5.0) Globulin 5.6 g/dL (2.3-3.5) Albumin/Globulin Ratio 0.5 (0.8-2.0) Human Chorionic Gonadotropin, Qual (NEGATIVE) (DAYLIN GROVE MD) Assessment & Plan Medical Decision Making MDM FEVER, ACHY ALL OVER, SOB, MILD COUGH, RECURRENT X SEVERAL MONTHS, ? COVID (BUT PT TESTED PREVIOUSLY NEGATIVE SEVERAL TIMES, LAST ~1 MONTH AGO), TACHYPNEIC AND TACHYCARDIC, FEBRILE - CHECK CBC, CHEM'S, BLOOD CX'S, UA/CX, LACTIC, CXR, COVID SWAB - R/O PNEUMONIA, COVID19, UTI, SEPSIS. TREAT FEVER, IVF'S (DAYLIN GROVE MD) MDM Work up suggests PNA. Will DC her Augmentin and switch to Levofloxacin. She will f/u w/ her PCP or return to ED for new/worsening symptoms. (LISET BARRAZA MD) Reassessment Reassessment REPORT TO DR BARRAZA TO F/U LABS, CXR, AND TO DISPO (DAYLIN GROVE MD) Reassessment time: 17:06 Reassessment Moderately improved symptoms after antipyretics and fluids. (LISET BARRAZA MD) Assessment & Plan Final Impression: (1) PNA (pneumonia) (LISET BARRAZA MD) Depart Disposition: HOME, SELF-CARE Last Vital Signs Date Time Temp Pulse Resp B/P (MAP) Pulse Ox O2 Delivery O2 Flow Rate FiO2 03/04/20 15:12 102.7 132 32 116/48 94 Room Air (DAYLIN GROVE MD) Home Meds Active Scripts Levofloxacin (LEVAQUIN) 500 Mg Tablet, 750 MG PO DAILY for 7 Days, #7 Prov:LISET BARRAZA MD 03/04/20 Reported Medications Ondansetron Hcl (ONDANSETRON HCL) 4 Mg Tablet, 4 MG SL Q4HR PRN for NAUSEA 09/21/18 Gabapentin (GABAPENTIN) 300 Mg Capsule, 300 MG PO BID 09/21/18 Duloxetine Hcl (CYMBALTA) 30 Mg Capsule.dr, 30 MG PO DAILY 09/21/18 Clonazepam (CLONAZEPAM) 0.5 Mg Tablet, 0.5 MG PO Q6H PRN for ANXIETY 09/21/18 Sumatriptan Succinate (SUMATRIPTAN SUCCINATE) 50 Mg Tablet, 50 MG PO Q2H PRN for MIGRAINE 09/21/18 Butalb/Acetaminophen/Caffeine ([id number]-[id number]-XYBA 50-325-40) 1 Each Tablet, 1 TAB PO Q6H PRN for MIGRAINE 09/21/18 Loratadine (LORATADINE) 10 Mg Tab.rapdis, 10 MG PO DAILY 06/30/17 Medications in the ED Sodium Chloride 1,000 ml @ 0 mls/hr Q0M STAT IV ; Start 03/04/20 at 15:25; Stop 03/04/20 at 15:26 Acetaminophen 975 mg ONCE ONCE PO ; Start 03/04/20 at 15:30; Stop 03/04/20 at 15:31 Ibuprofen 800 mg NOW ONCE IV ; Start 03/04/20 at 15:30; Stop 03/04/20 at 15:31; Status UNV Ibuprofen 200 ml @ 400 mls/hr ONCE ONCE IV ; Start 03/04/20 at 16:00; Stop 03/04/20 at 16:29 (DAYLIN GROVE MD) ADYLIN GROVE MD Mar 04, 2020 16:26 LISET BARRAZA MD Mar 04, 2020 17:07
[2020-03-04] MEDS ORDERED: CEFTRIAXONE SOD 1 GM/NS 50 ML 50 ML IV ONE (16:30)
[2020-03-04 16:58] LABS: ANISOCYTOSIS MODERATE; HYPOCHROMASIA MODERATE; PLATELET ESTIMATE ADEQUATE; PLATELET MORPHOLOGY COMMENT NORMAL; POLYCHROMASIA FEW
[2020-03-04 16:59] LABS: MICROCYTOSIS MODERATE; TARGET CELLS FEW
[2020-03-04] MEDS ORDERED: AZITHROMYCIN 500MG/NS 250 ML 250 ML IV ONE (17:00)
[2020-03-04] MEDS ORDERED: LEVOFLOXACIN 250 MG TAB PO ONE (17:15)
[2020-03-04] MEDS ORDERED: LEVAQUIN500 MG PO (17:47)
--- NOTE | 2020-03-04 18:53 | NUR ---
Report to Amor Mulligan
== END 2020-03-04 19:50 | disposition home or self-care (01) ==
LOC: ER 15:14
DX: J18.9 Pneumonia, unspecified organism (principal); R50.9 Fever, unspecified; R05 Cough; F41.9 Anxiety disorder, unspecified; F32.9 Major depressive disorder, single episode, unspecified; D64.9 Anemia, unspecified; N80.9 Endometriosis, unspecified; Z11.59 Encounter for screening for other viral diseases
CPT/HCPCS: 36415; 71045; 80053; 81001; 81003; 81025; 83518; 83605; 85025; 85610; 87040; 87086; 99284; J0456; J0696; J7030; U0002

== ENCOUNTER 2020-05-28 14:39 | Inpatient (IN) | payer BC ==
[~2020-05-28] VITALS: Ht 162.6 cm; Wt 95.7 kg
[~2020-05-28 14:39] MED LIST changes: +LEVAQUIN500 MG PO
[2020-05-28] MEDS ORDERED: SODIUM CHLORIDE 0.9% 1000ML 1,000 ML IV SCH ×2 (15:00→15:45)
[2020-05-28] MEDS ORDERED: KETOROLAC TROMETHAMINE 30 MG/ML VIAL IV STA (15:00)
--- NOTE | 2020-05-28 15:08 | Emergency Department Note ---
History of Present Illnes History of Present Illness Chief Complaint: COVID PUI History of Present Illness This is a 34 year old female Chief Complaint Comment Patient in from home with complaints of shortness of breath, fever, cough, nausea, vomiting, diarrhea, headache and weakness that started about two weeks ago. Patient was seen here in this ER last month for pneumonia and received treatment and felt better but started feeling worse again. Patient is tachypneic and tachycardic in triage with an oral temperature of 102.7. Patient states she has been tested for covid-19 5 times, the last time being in April, and all were negative. Historian: Patient Arrival Mode: Car Past Medical/Family History Physician Review I have reviewed the patient's past medical and family history. Any updates have been documented here. Past Medical History Recent Fever: Yes Clinical Suspicion of Infectio: Yes New/Unexplained Change in Ment: No Past Medical History: Migraines, Anemia, Anxiety, Depression Other Medical History: ANEMIA ENDOMETROSIS Spondylosis Other Surgery: Other Last Tetanus: UNK Review of Systems Review of Systems Constitutional: Reports no symptoms EENTM: Reports no symptoms Cardiovascular: Reports no symptoms Respiratory: Reports as per HPI, Reports cough Gastrointestinal: Reports no symptoms Genitourinary: Reports no symptoms Musculoskeletal: Reports no symptoms Integumentary: Reports no symptoms Neurological: Reports no symptoms Psychological: Reports no symptoms Endocrine: Reports no symptoms Hematological/Lymphatic: Reports no symptoms Physical Exam Related Data Allergies: Coded Allergies: peanut (Verified Allergy, Unknown, 06/30/17) Triage Vital Signs Vital Signs Date Time Temp Pulse Resp B/P (MAP) Pulse Ox O2 Delivery O2 Flow Rate FiO2 05/28/20 14:49 102.7 122 34 124/47 99 Room Air Vital signs reviewed: Yes Physical Exam CONSTITUTIONAL Constitutional: Present well-developed, Present well-nourished HENT HENT: Present normocephalic, Present atraumatic, Present oropharynx clear/moist, Present nose normal HENT L/R: Present left ext ear normal, Present right ext ear normal EYES Eyes: Reports PERRL, Reports conjunctivae normal NECK Neck: Present ROM normal PULMONARY Pulmonary: Present breath sounds normal, Present respiratory distress; Absent effort normal CARDIOVASCULAR Cardiovascular: Present regular rhythm, Present heart sounds normal, Present capillary refill normal, Present tachycardia; Absent normal rate GASTROINTESTINAL Abdominal: Present soft, Present nontender, Present bowel sounds normal GENITOURINARY Genitourinary: Present exam deferred SKIN Skin: Present warm, Present dry MUSCULOSKELETAL Musculoskeletal: Present ROM normal NEUROLOGICAL Neurological: Present alert, Present oriented x 3, Present no gross motor or sensory deficits PSYCHOLOGICAL Psychological: Present mood/affect normal, Present judgement normal Results Laboratory Lab results reviewed: Yes Imaging Imaging results reviewed: Yes Diagnostics Tests Diagnostic test(s) reviewed: Yes Assessment & Plan Medical Decision Making MDM 34-year-old female with no reported past medical history except for some kind of anemia who presents emergency department for shortness of breath and fever. Symptoms started approximately 2 weeks ago. Initial differential includes coronavirus versus influenza versus pneumonia among others. 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 Workup shows hemoglobin 6.8 and an elevated available to count. Diagnosis favors pneumonia. She was discussed with Dr. Sosa who has agreed to admit for pneumonia. Patient is appropriate for transfer to floor. Sepsis suspected at time of antibiotic order. Lactic acid was repeated if initial >2 30cc/kg crystalloid bolus given Focused exam for sepsis done after fluids initiated Vasopressors were not indicated Reassessment Reassessment time: 16:37 Reassessment Well appearing, symptoms improved Assessment & Plan Final Impression: (1) PNA (pneumonia) Depart Disposition: ADMITTED Last Vital Signs Date Time Temp Pulse Resp B/P (MAP) Pulse Ox O2 Delivery O2 Flow Rate FiO2 05/28/20 14:49 102.7 122 34 124/47 99 Room Air Home Meds Active Scripts Levofloxacin (LEVAQUIN) 500 Mg Tablet, 750 MG PO DAILY for 7 Days, #7 Prov:LISET BARRAZA MD 03/04/20 Reported Medications Ondansetron Hcl (ONDANSETRON HCL) 4 Mg Tablet, 4 MG SL Q4HR PRN for NAUSEA 09/21/18 Gabapentin (GABAPENTIN) 300 Mg Capsule, 300 MG PO BID 09/21/18 Duloxetine Hcl (CYMBALTA) 30 Mg Capsule.dr, 30 MG PO DAILY 09/21/18 Clonazepam (CLONAZEPAM) 0.5 Mg Tablet, 0.5 MG PO Q6H PRN for ANXIETY 09/21/18 Sumatriptan Succinate (SUMATRIPTAN SUCCINATE) 50 Mg Tablet, 50 MG PO Q2H PRN for MIGRAINE 09/21/18 Butalb/Acetaminophen/Caffeine (JUSQSZ-[id number]-SOPY 50-325-40) 1 Each Tablet, 1 TAB PO Q6H PRN for MIGRAINE 09/21/18 Loratadine (LORATADINE) 10 Mg Tab.rapdis, 10 MG PO DAILY 06/30/17 Medications in the ED Sodium Chloride 1,000 ml @ 0 mls/hr Q0M IV ; Start 05/28/20 at 15:00; Stop 05/28/20 at 15:59 Ketorolac Tromethamine 15 mg ONCE STAT IV ; Start 05/28/20 at 15:00; Stop 05/28/20 at 15:01 LISET ABRRAZA MD May 28, 2020 15:08
[2020-05-28 15:15] LABS: BASOPHILS # (AUTO) 0.1 (0.0-0.1); BASOPHILS % 0.4 % (0.0-1.0); EOSINOPHILS # (AUTO) 0.7 (0.0-0.4); EOSINOPHILS % 4.3 % (0.0-6.0); HEMATOCRIT 23.3 % (34.2-44.1); LYMPHOCYTES # (AUTO) 1.9 (1.0-3.2); LYMPHOCYTES % 12.1 % (18.0-39.1); MEAN CORPUSCULAR HGB CONC 29.2 g/dL (31-35); MEAN CORPUSCULAR VOLUME 65.1 fL (81-99); MONOCYTES # (AUTO) 1.4 (0.2-0.8); MONOCYTES % 9.1 % (4.4-11.3); NEUTROPHILS # (AUTO) 11.3 (2.1-6.9); NEUTROPHILS % 72.8 % (38.7-80.0); PLATELET COUNT 523 x10e3/uL (140-360); RED BLOOD COUNT 3.58 x10e6/uL (3.6-5.1); RED CELL DISTRIBUTION WIDTH 24.9 % (11.7-14.4)
[2020-05-28 15:18] LABS: HEMOGLOBIN 6.8 g/dL (12.0-16.0)
[2020-05-28 15:32] LABS: ALANINE AMINOTRANSFERASE 8 IU/L (0-55); ALBUMIN 2.8 g/dL (3.5-5.0); ALBUMIN/GLOBULIN RATIO 0.5 (0.8-2.0); ALKALINE PHOSPHATASE 73 IU/L (40-150); ANION GAP 14.3 mmol/L (8-16); BLOOD UREA NITROGEN 11 mg/dL (7-26); BUN/CREATININE RATIO 15 (6-25); CALCIUM 8.2 mg/dL (8.4-10.2); CARBON DIOXIDE 24 mmol/L (22-29); CHLORIDE 97 mmol/L (98-107); CREATININE, SERUM 0.72 mg/dL (0.57-1.11); EST GLOMERULAR FILTRATION RATE > 60 ML/MIN (60-); GLUCOSE 91 mg/dL (74-118); POTASSIUM 4.3 mmol/L (3.5-5.1); SODIUM 131 mmol/L (136-145)
--- OUTSIDE RECORDS SUMMARY | 2020-05-28 15:32 | XMS REPORT | Continuity of Care Document ---
Author Author [facility] t Organization [facility] Address [address] [place] [address] Phone Unavailable Care Team Providers Care Exhaust Worker Name Role Phone NONSTAFF PCP Unavailable Yuki Reed Attphys Unavailable OLGA RAY Attphys Unavailable VILLA, SOUHEIL Attphys Unavailable Meghan LEÓN Attphys Unavailable VILLA, SOUHEIL Admphys Unavailable Payers Payer Name Policy Type Policy Number Effective Date [facility] Date [id number] 2017 00:00:00 [facility] Problems Condition Name Condition Details Condition Category Status Onset Date Resolution Date Last Treatment Date Treating Clinician Comments Source Chest pain Chest pain Problem Active [facility] Secondary anemia Symptomatic anemia Problem Active [facility] Right anterior knee pain Problem Active [facility] Pneumonia Problem Active [facility] Allergies, Adverse Reactions, Alerts Allergy Name Allergy Type Status Severity Reaction(s) Onset Date Inacti ve Date Treating Clinician Comments Source Peanuts Allergy to substance Active 2017-06-30 00:00:00 [facility] No Known Allergies DA Active U 2015-03-02 00:00:00 [facility] Social History Social Habit Start Date Stop Date Quantity Comments Source Sex Assigned At 1985 00:00:00 1985 00[birth year]00:00 Female [facility] Medications Ordered Medication Name Filled Medication Name Start Date Stop Da te Current Medication? Ordering Clinician Indication Dosage Frequency Signature (SIG) Comments Components Source Levofloxacin (Levaquin) 500 Mg TABLET Levofloxacin (Levaquin ) 500 Mg TABLET 2020-03-04 17:47:00 Yes 750 Daily [facility] Butalb/Acetaminophen/Caffeine (Ouoswj-Tudxfgpb-Kngj 50 -325-40) 1 Each TABLET Butalb/Acetaminophen/Caffeine (Gclrzl-Aaxlator-Yqcu 50-325-40) 1 Each TABLET Yes 1 Every 6 Hours as needed for Migr rodney [facility] Clonazepam Clonazepam Yes .5 Every 6 Hours as n eeded for Anxiety [facility] Duloxetine Hcl (Cymbalta) 30 Mg CAPSULE. Duloxetine Hcl (Cymbalta) 30 Mg CAPSULE. Yes 30 Daily [facility] Gabapentin Gabapentin Yes 300 Twice A Day [facility] Loratadine Loratadine Yes 10 Daily [facility] Ondansetron Hcl Ondansetron Hcl Yes 4 Every 4 Hours as needed for Nausea [facility] Sumatriptan Succinate Sumatriptan Succinate Yes 50 Every Two Hours as needed for Migraine [facility] Furosemide Furosemide 2018-09-23 00:00:00 No 20 Daily as needed for Shortness Of Breath [facility] Garlic (Garlique) 5,000 Mcg TABLET Garlic (Garlique) 5,000 Mcg T ABLET 2018-09-23 00:00:00 No 5000 Daily [facility] Ketorolac Tromethamine (Toradol) 10 Mg TABLET Ketorola c Tromethamine (Toradol) 10 Mg TABLET 2018-09-23 00:00:00 No 10 Every 8 Hours as needed for Pain [facility] Flonase Flonase 2018-09-21 00:00:00 No [facility] Norethindrone Acetate Norethindrone Acetate 2018-09-21 00:00:00 No 5 Daily [facility] Vital Signs Vital Name Observation Time Observation Value Comments Source Weight 2020-03-04 15:12:00 260 [lb_av] [facility] BMI (Body Mass Index) 2020-03-04 15:12:00 43.3 kg/m2 [facility] Weight 2019-11-18 23:05:00 253 [lb_av] [facility] BMI (Body Mass Index) 2019-11-18 23:05:00 40.8 kg/m2 [facility] Procedures This patient has no known procedures. Plan of Care Planned Activity Planned Date Details Comments Source Instructions Pneumonia - Bacterial [facility] Encounters Start Date/Time End Date/Time En[facility] Ad[facility] ID Source 2019-11-18 22:50:00 2019-11-19 00:00:00 Departed Emergency Room 1 OLGA RAY [facility] [id number] [facility] 2018-09-21 03:11:00 2018-09-23 13:11:00 Discharged Inpatient 1 NICOLAS VILLA [facility] [id number] [facility] Results Test Description Test Time Test Comments Results Result Comments Source CHEST SINGLE (PORTABLE) 2020-03-04 16:20:00 [facility] [address] [address] Patient Name: SATNO RAJPUT MR #: [id number] : 1985 Age/Sex: 34/F Req #: [id number] Adm Physician: Ordered by: DAYLIN LEÓN MD Report #: [id number] Location: ER Room/Bed: Procedure: [id number] DX/CHEST SINGLE (PORTABLE) Exam Date: 03/04/20 Exam Time: 1557 REPORT STATUS: Signed EXAMINATION: CHEST SINGLE (PORTABLE) INDICATION: Shortness of breath, fever COMPARISON: None FINDINGS: LINES/TUBES:None LUNGS:The lungs are moderately inflated. Mild patchy bibasilar opacities. PLEURA:No pleural effusion or pn eumothorax. MEDIASTINUM:The cardiomediastinal silhouette appears normal in size and shape. BONES/SOFT TISSUES:No acute osseous injury. ABDOMEN:No free air under the diaphragm. IMPRESSION: Mild bibasilar patchy opacities. In the setting of fever and shortness of breath, pneumonia should be excluded clinically. Signed by: Merly Olea MD on 03/04/2020 4:22 PM Dictated By: MERLY OLEA MD 21 Transcribed By: LEVON on 03/04/201621 COPY TO: DAYLIN LEÓN MD Fluoroscopic procedure less than one hour duration 2020-02-09 15:52:00 Test Item Lactic Acid Level (test code = Lactic Acid Level) 0.7 0.5- 2.0 [facility]or[facility] procedure less than one hour [id number] 15:52:00* Test Item Value Reference Range Interpretation Comments Coronavirus (PCR) (test code = Coronavirus (PCR)) NOT DETECTED NOTD ETECTED SARS-COV2/RT-PCR CEPHEIDResults are for the detection of SARS-COV-2 RNA. The BOLIVAR S-COV-2 RNA is generally detectable in nasopharyngeal swab specimens during the acute phase of infection. Positive results are indicitive of active infection wi th SARS-COV-2; clinical correlation with patient history and other diagnostic in formation is necessary to determine patient infection status. Positive results d o not rule out bacterial infection or co-infection with other viruses. The agent detected may not be the definite cause of the disease.The limit of detection fo r this assay is 250 copies/mLThe SARS-CoV-2 test is a rapid, real-time RT-PCR te st intended for the qualitative detection of nucleic acid from SARS-CoV-2 in jovani opharyngeal swab specimen collected from individuals suspected of COVID-19 by [facility] healthcare provider. This test has not been Food and Drug Administration (FD A) cleared or approved and has been authorized by FDA under an Emergency Use Aut horization (EUA). This EUA will be effective until the declaration that circumst ances exist justifying the authorization of the emergency use of in vitro diagno stic test for detection and or diagnosis of COVID-19 is terminated under section 564(b) of the Act, or the the EUA is revoked under 564(g) of the ACT.[facility] leukocytes automated count (number/volume) 2020-03-04 15:22:00* Test Item Value Reference Range Interpretation Comments White Blood Count (test code = 6690-2) 16.32 4.8-10.8 [facility] erythrocytes automated count (number/volume)2020-03-04 15:22:00* Test Item Value Reference Range Interpretation Comments Red Blood Count (test code = 789-8) 3.81 3.6-5.1 [facility] hemoglobin measurement (moles/volume)2020-03-04 15:22:00* Test Item Value Reference Range Interpretation Comments Hemoglobin (test code = 97636-8) 7.6 12.0-16.0 This test has been rerun and double checked for accuracy.[facility]anoAutomated blood hematocrit (volume fraction)2020-03-04 15:22:00* Test Item Value Reference Range Interpretation Comments Hematocrit (test code = 4544-3) 25.4 34.2-44.1 [facility]anoAutomated erythrocyte mean corpuscular [id number] 15:22:00* Test Item Value Reference Range Interpretation Comments Mean Corpuscular Volume (test code = 787-2) 66.7 81-99 [facility]anoAutomated erythrocyte mean corpuscular hemoglobin (mass per erythrocyte)2020-03-04 15:22:00* Test Item Value Reference Range Interpretation Comments Mean Corpuscular Hemoglobin (test code = 785-6) 19.9 28-32 [facility]anoAutomated erythrocyte mean corpuscular hemoglobin concentration measurement (mass/volume)2020-03-04 15:22:00* Test Item Value Reference Range Interpretation Comments Mean Corpuscular Hemoglobin Concent (test code = 786-4) 29.9 31-35 [facility] PlanoRDW GaqXk-[id number] 15:22:00* Test Item Value Reference Range Interpretation Comments Red Cell Distribution Width (test code = 21145-7) 21.2 11.7 -14.4 [facility]anoAutomated blood platelet count (count/volume)2020-03-04 15:22:00* Test Item Value Reference Range Interpretation Comments Platelet Count (test code = 777-3) 299 140-360 [facility] PlanoAutomated blood segmented neutrophil count as percentage of total nglxuwhkgd4455-88-92 15:22:00* Test Item Value Reference Range Interpretation Comments Neutrophils (%) (Auto) (test code = 80120-5) 69.0 38.7-80.0 [facility]anoAutomated blood lymphocyte count as percentage ot total pfjnwfqcyh1698-96-81 15:22:00* Test Item Value Reference Range Interpretation Comments Lymphocytes (%) (Auto) (test code = 736-9) 13.2 18.0-39.1 [facility]anoAutomated blood monocyte count as percentage of total jcnpapqttm8988-44-31 15:22:00* Test Item Value Reference Range Interpretation Comments Monocytes (%) (Auto) (test code = 5905-5) 10.0 4.4-11.3 [facility]anoAutomated blood eosinophil count as percentage of total nyigeiptfe6352-71-89 15:22:00* Test Item Value Reference Range Interpretation Comments Eosinophils (%) (Auto) (test code = 713-8) 5.8 0.0-6.0 [facility]anoAutomated blood basophil count as percentage of total bifstiamth0233-95-36 15:22:00* Test Item Value Reference Range Interpretation Comments Basophils (%) (Auto) (test code = 706-2) 0.9 0.0-1.0 [facility]anoFluoroscopic procedure less than one hour [id number] 15:22:00* Test Item Value Reference Range Interpretation Comments IM GRANULOCYTES % (test code = IM GRANULOCYTES %) 1.1 0.0- 1.0 [facility]anoAutom[facility] blood neutrophil count 2020-03-04 15:22:00* Test Item Value Reference Range Interpretation Comments Neutrophils # (Auto) (test code = 751-8) 11.3 2.1-6.9 [facility] lymphocytes count (number/volume) 2020-03-04 15:22:00* Test Item Value Reference Range Interpretation Comments Lymphocytes # (Auto) (test code = 07633-8) 2.2 1.0-3.2 [facility] monocytes automated count (number/volume)2020-03-04 15:22:00* Test Item Value Reference Range Interpretation Comments Monocytes # (Auto) (test code = 742-7) 1.6 0.2-0.8 [facility]anoAutomated blood eosinophil count 2020-03-04 15:22:00* Test Item Value Reference Range Interpretation Comments Eosinophils # (Auto) (test code = 711-2) 1.0 0.0-0.4 [facility]Aut[facility] blood basophil count (count/volume)2020-03-04 15:22:00* Test Item Value Reference Range Interpretation Comments Basophils # (Auto) (test code = 704-7) 0.2 0.0-0.1 [facility]anoFluoroscopic procedure less than one hour seetlfxp9119-66-86 15:22:00* Test Item Value Reference Range Interpretation Comments Absolute Immature Granulocyte (auto (peace t code = Absolute Immature Granulocyte (auto) 0.18 0-0.1 [facility] platelets count by estimate (number/volume)2020-03-04 15:22:00* Test Item Value Reference Range Interpretation Comments Platelet Estimate (test code = 39829-2) ADEQUATE [facility] PlanoPlatelet eknbygzlbf4932-21-91 15:22:00* Test Item Value Reference Range Interpretation Comments Platelet Morphology Comment (test code = 97954-2) NORMAL [facility]anoBlood polychromasia detection by light wedwwvoyoq8397-86-76 15:22:00* Test Item Value Reference Range Interpretation Comments Polychromasia (test code = 34728-7) FEW [facility]anoBlood hypochromia detection by light bhlhxewlps5078-86-15 15:22:00* Test Item Value Reference Range Interpretation Comments Hypochromasia (test code = 728-6) MODERATE [facility]anoBlood anisocytosis detection by light juqtwemxzt6298-14-61 15:22:00* Test Item Value Reference Range Interpretation Comments Anisocytosis (test code = 702-1) MODERATE [facility]anoBlood microcytes detection by light ejxkruihsh1006-85-94 15:22:00* Test Item Value Reference Range Interpretation Comments Microcytosis (test code = 741-9) MODERATE [facility]anoBlood target cells detection by light cbzfsnhrzj0436-88-99 15:22:00* Test Item Value Reference Range Interpretation Comments Target Cells (test code = 10902-5) FEW [facility] PlanoUrine color baihujtyfinyb6047-09-74 15:22:00* Test Item Value Reference Range Interpretation Comments Urine Color (test code = 5778-6) YELLOW YELLOW [facility] PlanoUrine iqbcqoc4221-38-66 15:22:00* Test Item Value Reference Range Interpretation Comments Urine Clarity (test code = 39109-3) CLOUDY CLEAR [facility] Urine by Test strip 2020-03-04 15:22:00* Test Item Value Reference Range Interpretation Comments Urine Specific [place] (test code = 5811-5) 1.025 1.010-1.02 5 [facility]anoUrine pH measurement by automated test ijatf8425-37-41 15:22:00* Test Item Value Reference Range Interpretation Comments Urine pH (test code = 84645-2) 6 5-7 [facility]anoUrine leukocyte esterase detection by gwganoee7360-27-94 15:22:00* Test Item Value Reference Range Interpretation Comments Urine Leukocyte Esterase (test code = 5799-2) NEGATIVE NEGATIVE [facility]anoUrine nitrite kthqqjzje4990-79-79 15:22:00* Test Item Value Reference Range Interpretation Comments Urine Nitrite (test code = 31006-9) NEGATIVE NEGATIVE [facility]anoUrine protein measurement by test strip (mass/volume)2020-03-04 15:22:00* Test Item Value Reference Range Interpretation Comments Urine Protein (test code = 5804-0) 2+ NEGATIVE [facility]anoUrine glucose amnmjchfw1030-07-04 15:22:00* Test Item Value Reference Range Interpretation Comments Urine Glucose (UA) (test code = 2349-9) NEGATIVE NEGATIVE [facility]anoUrine ketones detection by automated test suvdm9734-18-16 15:22:00* Test Item Value Reference Range Interpretation Comments Urine Ketones (test code = 12765-0) 1+ NEGATIVE [facility] PlanoUrine urobilinogen measurement by test strip (mass/volume)2020-03-04 15:22:00* Test Item Value Reference Range Interpretation Comments Urine Urobilinogen (test code = 66266-9) 1 0.2-1 [facility]anoUrine total bilirubin measurement (mass/volume)2020-03-04 15:22:00* Test Item Value Reference Range Interpretation Comments Urine Bilirubin (test code = 1978-6) MODERATE NEGATIVE [facility] PlanoUrine erythrocytes ldkeynvfb7680-49-55 15:22:00* Test Item Value Reference Range Interpretation Comments Urine Blood (test code = 22288-2) MODERATE NEGATIVE [facility] PlanoAutomated urine sediment leukocyte count by microscopy (number/high power field)2020-03-04 15:22:00* Test Item Value Reference Range Interpretation Comments Urine WBC (test code = 5821-4) 6-10 0-5 [facility]anoErythrocytes detection in urine sediment by light olrttqyvmh4585-19-88 15:22:00* Test Item Value Reference Range Interpretation Comments Urine RBC (test code = 97744-1) 0-5 0-5 [facility]anoBacteria detection in urine sediment by light euegxyjjgr9346-84-03 15:22:00* Test Item Value Reference Range Interpretation Comments Urine Bacteria (test code = 37112-9) MODERATE NONE [facility] PlanoEpithelial cells detection in urine sediment by light dfpbacotxj5307-74-68 15:22:00* Test Item Value Reference Range Interpretation Comments Urine Epithelial Cells (test code = 66107-0) MODERATE NONE [facility] PlanoUrine human chorionic gonadotropin (hCG) xerwcvcbw3995-74-94 15:22:00* Test Item Value Reference Range Interpretation Comments Urine Test (test code = 2106-3) NEGATIVE NEGATIVE [facility] Hospitalerum or plasma sodium measurement (moles/volume)2020-03-04 15:22:00* Test Item Value Reference Range Interpretation Comments Sodium Level (test code = 2951-2) 131 136-145 [facility] Hospitalerum or plasma potassium measurement (moles/volume)2020-03-04 15:22:00* Test Item Value Reference Range Interpretation Comments Potassium Level (test code = 2823-3) 4.3 3.5-5.1 [facility] Hospitalerum or plasma chloride measurement (moles/volume)2020-03-04 15:22:00* Test Item Value Reference Range Interpretation Comments Chloride Level (test code = 2075-0) 98 98-107 [facility] Hospitalerum or plasma carbon dioxide, total measurement (moles/volume)2020-03-04 15:22:00* Test Item Value Reference Range Interpretation Comments Carbon Dioxide Level (test code = 2028-9) 20 22-29 [facility] Hospital[facility]um or plasma anion zwg4000-16-86 15:22:00* Test Item Value Reference Range Interpretation Comments Anion Gap (test code = 12300-4) 17.3 8-16 [facility]um or plasma urea nitrogen measurement (mass/volume)2020-03-04 15:22:00* Test Item Value Reference Range Interpretation Comments Blood Urea Nitrogen (test code = 3094-0) 10 7-26 [facility] Hospitalerum or plasma creatinine measurement (mass/volume)2020-03-04 15:22:00* Test Item Value Reference Range Interpretation Comments Creatinine (test code = 2160-0) 0.80 0.57-1.11 [facility]um or plasma urea nitrogen/creatinine mass almng9227-17-99 15:22:00* Test Item Value Reference Range Interpretation Comments BUN/Creatinine Ratio (test code = 3097-3) 13 6-25 [facility] PlanoEstimated glomerular filtration rate (GFR) qxkhsmuiyjjoi4354-32-08 15:22:00* Test Item Value Reference Range Interpretation Comments Estimat Glomerular Filtration Rate (test code = 651916729) > 60 >60 Ranges were taken from the National Kidney Disease Education Program and the [facility] Kid[facility] Foundation literature.Reference ranges:60 or greater: Rhyjto91-57 ( for 3 consecutive months): Chronic kidney disease 15 or less: Kidney failureBaylor Scott & White Medical Center – PlanoGlucose fahuhstcnvu0795-44-54 15:22:00* Test Item Value Reference Range Interpretation Comments Glucose Level (test code = BAE9320) 95 74-118 [facility] or plasma calcium measurement (mass/volume)2020-03-04 15:22:00* Test Item Value Reference Range Interpretation Comments Calcium Level (test code = 82411-7) 8.4 8.4-10.2 [facility] Hospital[facility]um or plasma total bilirubin measurement (mass/volume)2020-03-04 15:22:00* Test Item Value Reference Range Interpretation Comments Total Bilirubin (test code = 1975-2) 0.3 0.2-1.2 [facility]anoFluoroscopic procedure less than one hour wqaqqvlm0224-23-65 15:22:00* Test Item Value Reference Range Interpretation Comments Aspartate Amino Transf (AST/SGOT) (test code = Aspartate Amino Transf (AST/SGOT)) 38 5-34 [facility] Hospitalerum or plasma alanine aminotransferase measurement (enzymatic activity/volume)2020-03-04 15:22:00* Test Item Value Reference Range Interpretation Comments Alanine Aminotransferase (ALT/SGPT) (test code = 1742-6) 6 0-55 [facility] Hospitalerum or plasma protein measurement (mass/volume)2020-03-04 15:22:00* Test Item Value Reference Range Interpretation Comments Total Protein (test code = 2885-2) 8.3 6.5-8.1 [facility] Hospitalerum or plasma albumin measurement (mass/volume)2020-03-04 15:22:00* Test Item Value Reference Range Interpretation Comments Albumin (test code = 1751-7) 2.7 3.5-5.0 [facility]anoPlasma globulin measurement (mass/volume) 2020-03-04 15:22:00* Test Item Value Reference Range Interpretation Comments Globulin (test code = 54340-5) 5.6 2.3-3.5 [facility] Hospitalerum or plasma albumin/globulin mass qtvxz8701-43-47 15:22:00* Test Item Value Reference Range Interpretation Comments Albumin/Globulin Ratio (test code = 1759-0) 0.5 0.8-2.0 [facility] Hospitalerum or plasma alkaline phosphatase measurement (enzymatic activity/volume)2020-03-04 15:22:00* Test Item Value Reference Range Interpretation Comments Alkaline Phosphatase (test code = 6768-6) 75 40-150 [facility] PlanoKNEE RIGHT THREE [id number] 00:02:00 [facility] [address] [place] [address] Patient Name: SANTO RAJPUT MR #: [id number] : 1985 Age/Sex: 34/F Req #: [id number] Adm Physician: Ordered by: OLGA RAY DO Report #: [id number] Location: ER Room/Bed: Procedure: [id number] DX/KNEE RIGHT THRE E VIEWS Exam Date: 11/18/19 Exam Time: 2340 REPORT STATUS: Signed KNEE RIGHT THREE V IEWS - 3 views HISTORY: Pain. COMPARISON: None available. FINDINGS: Bones: No acute displaced fracture. Osseous alignment is withi n normal limits. Joints: The joint spaces are well-maintained. Soft tissues: The soft tissues appear unremarkable. IMPRESSION: No acute radiographic abnormality. Signed by: Kely Doss MD on 11/19/2019 12:03 AM Dictated By: KELY DOSS MD 0003 Transcribed By: LEVON on 11/19/19 0003 COPY TO: OLGA RAY DO Blood leukocytes automated count (number/volume) 2019-11-18 23:26:00* Test Item Value Reference Range Interpretation Comments White Blood Count (test code = 6690-2) 10.36 4.8-10.8 [facility]anoBlood erythrocytes automated count (number/volume)2019-11-18 23:26:00* Test Item Value Reference Range Interpretation Comments Red Blood Count (test code = 789-8) 4.39 3.6-5.1 [facility]anoBlood hemoglobin measurement (moles/volume)2019-11-18 23:26:00* Test Item Value Reference Range Interpretation Comments Hemoglobin (test code = 46531-1) 10.2 12.0-16.0 [facility] PlanoAutomated blood hematocrit (volume fraction)2019-11-18 23:26:00* Test Item Value Reference Range Interpretation Comments Hematocrit (test code = 4544-3) 34.1 34.2-44.1 [facility] PlanoAutomated erythrocyte mean corpuscular [id number] 23:26:00* Test Item Value Reference Range Interpretation Comments Mean Corpuscular Volume (test code = 787-2) 77.7 81-99 [facility] PlanoAutomated erythrocyte mean corpuscular hemoglobin (mass per erythrocyte)2019-11-18 23:26:00* Test Item Value Reference Range Interpretation Comments Mean Corpuscular Hemoglobin (test code = 785-6) 23.2 28-32 [facility] PlanoAutomated erythrocyte mean corpuscular hemoglobin concentration measurement (mass/volume)2019-11-18 23:26:00* Test Item Value Reference Range Interpretation Comments Mean Corpuscular Hemoglobin Concent (test code = 786-4) 29.9 31-35 [facility] PlanoRDW GslNh-Hsa4939-13-11 23:26:00* Test Item Value Reference Range Interpretation Comments Red Cell Distribution Width (test code = 61272-7) 18.6 11.7 -14.4 [facility] PlanoAutomated blood platelet count (count/volume)2019-11-18 23:26:00* Test Item Value Reference Range Interpretation Comments Platelet Count (test code = 777-3) 252 140-360 [facility] PlanoAutomated blood segmented neutrophil count as percentage of total kcgfiumkps3022-68-80 23:26:00* Test Item Value Reference Range Interpretation Comments Neutrophils (%) (Auto) (test code = 03345-6) 71.9 38.7-80.0 [facility] PlanoAutomated blood lymphocyte count as percentage ot total beydgxxbew4499-60-67 23:26:00* Test Item Value Reference Range Interpretation Comments Lymphocytes (%) (Auto) (test code = 736-9) 7.8 18.0-39.1 [facility] PlanoAutomated blood monocyte count as percentage of total bhuqerfjyw2775-67-63 23:26:00* Test Item Value Reference Range Interpretation Comments Monocytes (%) (Auto) (test code = 5905-5) 5.0 4.4-11.3 [facility] PlanoAutomated blood eosinophil count as percentage of total zsqvskpmze2840-29-47 23:26:00* Test Item Value Reference Range Interpretation Comments Eosinophils (%) (Auto) (test code = 713-8) 13.8 0.0-6.0 [facility] PlanoAutomated blood basophil count as percentage of total nvyauaeybo3899-38-64 23:26:00* Test Item Value Reference Range Interpretation Comments Basophils (%) (Auto) (test code = 706-2) 1.2 0.0-1.0 [facility] PlanoFluoroscopic procedure less than one hour tliuhnoy2710-19-12 23:26:00* Test Item Value Reference Range Interpretation Comments IM GRANULOCYTES % (test code = IM GRANULOCYTES %) 0.3 0.0- 1.0 [facility] PlanoAutomated blood neutrophil count 2019-11-18 23:26:00* Test Item Value Reference Range Interpretation Comments Neutrophils # (Auto) (test code = 751-8) 7.5 2.1-6.9 [facility] PlanoBlood lymphocytes count (number/volume) 2019-11-18 23:26:00* Test Item Value Reference Range Interpretation Comments Lymphocytes # (Auto) (test code = 47606-1) 0.8 1.0-3.2 [facility]anoBlred [facility] monocytes automated count (number/volume)2019-11-18 23:26:00* Test Item Value Reference Range Interpretation Comments Monocytes # (Auto) (test code = 742-7) 0.5 0.2-0.8 [facility] PlanoAutomated blood eosinophil count 2019-11-18 23:26:00* Test Item Value Reference Range Interpretation Comments Eosinophils # (Auto) (test code = 711-2) 1.4 0.0-0.4 [facility] PlanoAutomated blood basophil count (count/volume)2019-11-18 23:26:00* Test Item Value Reference Range Interpretation Comments Basophils # (Auto) (test code = 704-7) 0.1 0.0-0.1 [facility] PlanoFluoroscopic procedure less than one hour rbtnwkrc9390-36-61 23:26:00* Test Item Value Reference Range Interpretation Comments Absolute Immature Granulocyte (auto (peace t code = Absolute Immature Granulocyte (auto) 0.03 0-0.1 [facility]er[facility] or plasma sodium measurement (moles/volume)2019-11-18 23:26:00* Test Item Value Reference Range Interpretation Comments Sodium Level (test code = 2951-2) 137 136-145 [facility] Hospitalerum or plasma potassium measurement (moles/volume)2019-11-18 23:26:00* Test Item Value Reference Range Interpretation Comments Potassium Level (test code = 2823-3) 3.7 3.5-5.1 [facility] Hospitalerum or plasma chloride measurement (moles/volume)2019-11-18 23:26:00* Test Item Value Reference Range Interpretation Comments Chloride Level (test code = 2075-0) 105 98-107 [facility] Hospitalerum or plasma carbon dioxide, total measurement (moles/volume)2019-11-18 23:26:00* Test Item Value Reference Range Interpretation Comments Carbon Dioxide Level (test code = 2028-9) 23 22-29 [facility] Hospitalerum or plasma anion fmn9588-45-74 23:26:00* Test Item Value Reference Range Interpretation Comments Anion Gap (test code = 86274-0) 12.7 8-16 [facility] Hospitalerum or plasma urea nitrogen measurement (mass/volume)2019-11-18 23:26:00* Test Item Value Reference Range Interpretation Comments Blood Urea Nitrogen (test code = 3094-0) 9 7-26 [facility] Hospitalerum or plasma creatinine measurement (mass/volume)2019-11-18 23:26:00* Test Item Value Reference Range Interpretation Comments Creatinine (test code = 2160-0) 0.73 0.57-1.11 [facility] Hospitalerum or plasma urea nitrogen/creatinine mass odoks7717-04-37 23:26:00* Test Item Value Reference Range Interpretation Comments BUN/Creatinine Ratio (test code = 3097-3) 12 6-25 [facility] PlanoEstimated glomerular filtration rate (GFR) mbkkhwymxncpm3068-16-71 23:26:00* Test Item Value Reference Range Interpretation Comments Estimat Glomerular Filtration Rate (test code = 679897784) > 60 >60 Ranges were taken from the National Kidney Disease Education Program and the [facility] Foundation literature.Reference ranges:60 or greater: Dpfzhd93-04 ( for 3 consecutive months): Chronic kidney disease 15 or less: Kidney failureBaylor [facility] & [facility] – PlanoGlucose asnsgwrwrph5168-14-77 23:26:00* Test Item Value Reference Range Interpretation Comments Glucose Level (test code = HCR9323) 123 74-118 [facility] Hospitalerum or plasma calcium measurement (mass/volume)2019-11-18 23:26:00* Test Item Value Reference Range Interpretation Comments Calcium Level (test code = 01755-4) 9.0 8.4-10.2 [facility] HospitalTREPTOCOCCUS PCR FWGTOH0132-77-50 07:51:00* Test Item Value Reference Range Interpretation Comments STREPTOCOCCUS DYSGALACTIAE (test code = STREPGC) NEGATIVE FOR G/C N EGATIVE STREPA MOLECULAR (test code = STREPAMOL) NEGATIVE FOR GRP A NEGATIV E CBC W/AUTO [id number] 04:39:00* Test Item Value Reference Range Interpretation [...] = MDIFF) NO, ONLY SCAN NEEDED DIFFERENTIAL [id number] 04:39:00* Test Item Value Reference Range Interpretation Comments STAIN ACCEPTABILITY (test code = STN ACCEPTABLE) STAIN ACCEPTABLE HYPOCHROMIA (test code = HYPO) 1+ POIKILOCYTOSIS (test code = POIK) 1+ ANISOCYTOSIS (test code = ANISO) 1+ PLATELET ESTIMATE (test code = PLTEST) ADEQUATE PLATELET MORPHOLOGY (test code = PLTMORPH) NORMAL CBC W/AUTO [id number] 04:37:00* Test Item Value Reference Range Interpretation [...] = MDIFF) NO, ONLY SCAN NEEDED DIFFERENTIAL [id number] 04:37:00* Test Item Value Reference Range Interpretation Comments STAIN ACCEPTABILITY (test code = STN ACCEPTABLE) CABOT RINGS (test code = CAB) MORPHOLOGY COMMENT (test code = MOC) PLATELET ESTIMATE (test code = PLTEST) PLATELET MORPHOLOGY (test code = PLTMORPH) CBC W/AUTO [id number] 04:37:00* Test Item Value Reference Range Interpretation [...] = MDIFF) NO, ONLY SCAN NEEDED DIFFERENTIAL [id number] 04:37:00* Test Item Value Reference Range Interpretation Comments STAIN ACCEPTABILITY (test code = STN ACCEPTABLE) CABOT RINGS (test code = CAB) MORPHOLOGY COMMENT (test code = MOC) PLATELET ESTIMATE (test code = PLTEST) PLATELET MORPHOLOGY (test code = PLTMORPH) URINALYSIS [id number] 02:41:00* Test Item Value Reference Range Interpretation [...] LPF NONE-FEW A Urine Source? Clean CatchURINALYSIS JKQXZLCD6536-84-73 02:38:00* Test Item Value Reference Range Interpretation [...] HPF NONE Urine Source? Clean CatchBASIC METABOLIC [id number] 02:38:00* Test Item Value Reference Range Interpretation [...] CA) 8.2 mg/dL 8.4-10.2 L HEPATIC FUNCTION [id number] 02:38:00* Test Item Value Reference Range Interpretation [...] ALKP) 104 U/L 38-126 N BASIC METABOLIC [id number] 02:23:00* Test Item Value Reference Range Interpretation [...] CA) 8.2 mg/dL 8.4-10.2 L HEPATIC FUNCTION [id number] 02:23:00* Test Item Value Reference Range Interpretation [...] ALKP) 104 U/L 38-126 N HCG SERUM [id number] 02:10:00* Test Item Value Reference Range Interpretation [...] 3,000-50,000 MIU/ML3RD TRIMESTER 1,000- 50,000 MIU/ML LACTIC [id number] 02:07:00* Test Item Value Reference Range Interpretation Comments LACTIC ACID (test code = LACT) 0.9 MMOL/L 0.4-1.9 N CBC W/AUTO [id number] 01:55:00* Test Item Value Reference Range Interpretation [...] K/mm3 0.0-0.2 N - XR CHEST 1 [id number] 01:49:00 Name: SANTO RAJPUT [facility] : 1985 Age/S:34 /F [address] [facility] Unit#:[id number] Loc: [place] [address] Phys: Lucina Lima MD Dis Date: PHONE #: [phone] Status: PRE ER FAX #: [phone] Exam Date: 10/19/2019 Reason: COUGH EXAMS: CPT CODE: [id number] XR CHEST 1 V [id number] EXAM: - XR CHEST 1 V HISTORY: [...] signed by: Bereket Teran MD CC: Jordon Olea MD Technologist: THANH SANDOVAL RT(R),RDMS,CT Trnscrpt Data: 10/19/2019 (0149) SinaiMKM4 Orig Print D/T: S: 10/19/2019 (0153) PAGE 1 Signed Report SURGICAL SPECIMENS 2019-03-15 10:12:00 RUN DATE: 03/15/19 [facility] *LIVE* PAGE 1 RUN TIME: 1012 Specimen Inqui ry RUN USER: INTERFACE PATIENT: SANTO RAJPUT ACCT #: [id number] LOC: EstherSOHAN U #: [id number] AGE/SX: 33/F ROOM: RE03/12/19REG DR: Trini Miles : [birth year] BED: DIS: STATUS: KARINA JONES TLOC: SPEC #: [id number] RECD: 03/13/19 STATUS: JOEY REQ #: [id number] LAURA: 03/13/[address]: Trini Miles ENTERED: 03/14/19 SP TYPE: SURG SPEC OTHR DR: Livan Olea MD ORDERED: LEVEL 4 CODES: [id number] - PELVIS, NOS COPIES TO: Trini Roa MD [address] [place] [address] Jordon Olea MD [address] [place] [address] PROCEDURES: LEVEL 4 (Incomplete) TISSUES: 1. PELVIS, NOS [...] CONTINUED ON NEXT PAGE RUN DATE: 03/15/19 [facility] *LIVE* PAGE 2 RUN TIME: 1012 Specimen Inquiry RUN USER: INTERFACE SPEC #: [id number] PATIENT: SANTO RAJPUT #[id number] (Continued)- PRE-OP DIAGNOSIS Pelvic pain Signed Delia Lynne MD 03/15/19 1012 END OF REPORT BASIC METABOLIC [id number] 09:46:00* Test Item Value Reference Range Interpretation [...] CA) 9.0 mg/dL 8.0-10.5 N HCG SERUM [id number] 09:46:00* Test Item Value Reference Range Interpretation Comments HCG SERUM QUAL (test code = HCGQL) SERUM NEGATIVE NEGATIVE BASIC METABOLIC [id number] 09:42:00* Test Item Value Reference Range Interpretation [...] code = CA) mg/dL 8.0-10.5 HCG SERUM [id number] 09:42:00* Test Item Value Reference Range Interpretation Comments HCG SERUM QUAL (test code = HCGQL) SERUM NEGATIVE NEGATIVE PROTHROMBIN [id number] 09:39:00* Test Item Value Reference Range Interpretation [...] Infarction (to prevent recurrent infarct). THROMBOPLASTIN TIME [id number] 09:39:00* Test Item Value Reference Range Interpretation Comments THROMBOPLASTIN TIME PARTIAL (test code = PTT) 30.7 Seconds 25.0-39. 5 N Therapeutic Range: 50.4 - 88.3 Seconds Effective 10/23/2018 CBC W/AUTO [id number] 09:35:00* Test Item Value Reference Range Interpretation [...] REQUIRED (test code = MDIFF) NO URINALYSIS [id number] 09:35:00* Test Item Value Reference Range Interpretation [...] MUCU) 2+ /LPF NONE SEEN A Platelet Hhzmgucu0471-32-36 06:51:00* Test Item Value Reference Range Interpretation Comments Platelet Estimate (test code = 92316-5) ADEQUATE [facility] PlanoPlatelet Morphology [id number] 06:51:00* Test Item Value Reference Range Interpretation Comments Platelet Morphology Comment (test code = 79945-5) NORMAL [facility] PlanoAnisocytosis2019-03-17 06:51:00* Test Item Value Reference Range Interpretation Comments Anisocytosis (test code = 702-1) SLIGHT [facility] PlanoCrenated [id number] 06:51:00* Test Item Value Reference Range Interpretation Comments Crenated Cell (test code = 7790-9) SLIGHT [facility] PlanoRed Cell Morphology Wvokjva7258-62-81 06:51:00* Test Item Value Reference Range Interpretation Comments Red Cell Morphology Comment (test code = 6742-1) NORMAL [facility] Hospitalodium Ljqdq6959-85-50 06:05:00* Test Item Value Reference Range Interpretation Comments Sodium Level (test code = 2951-2) 137 136-145 [facility] PlanoPotassium Wtfcf7807-64-16 06:05:00* Test Item Value Reference Range Interpretation Comments Potassium Level (test code = 2823-3) 3.6 3.5-5.1 [facility] PlanoChloride Czbvd1043-00-31 06:05:00* Test Item Value Reference Range Interpretation Comments Chloride Level (test code = 2075-0) 105 98-107 [facility] PlanoCarbon Dioxide Flvvz7854-29-04 06:05:00* Test Item Value Reference Range Interpretation Comments Carbon Dioxide Level (test code = 2028-9) 25 22-29 [facility] PlanoAnion Uvc4151-69-22 06:05:00* Test Item Value Reference Range Interpretation Comments Anion Gap (test code = 32313-5) 10.6 8-16 [facility] PlanoBlood Urea Qswebvwo7433-92-52 06:05:00* Test Item Value Reference Range Interpretation Comments Blood Urea Nitrogen (test code = 3094-0) 15 7-26 [facility] PlanoCreatinine2019-03-17 06:05:00* Test Item Value Reference Range Interpretation Comments Creatinine (test code = 2160-0) 0.72 0.57-1.11 [facility] PlanoBUN/Creatinine Ubshd0415-48-15 06:05:00* Test Item Value Reference Range Interpretation Comments BUN/Creatinine Ratio (test code = 3097-3) 21 6-25 [facility] PlanoEstimat Glomerular Filtration Rate 2018-09-23 06:05:00* Test Item Value Reference Range Interpretation Comments Estimat Glomerular Filtration Rate (test code = 306482818) > 60 >60 Ranges were taken from the National Kidney Disease Education Program and the [facility] Kid[facility] Foundation literature.Reference ranges:60 or greater: Ycqbza11-43 ( for 3 consecutive months): Chronic kidney disease 15 or less: Kidney failureBaylor Scott & White Medical Center – PlanoGlucose Krjvv7270-08-92 06:05:00* Test Item Value Reference Range Interpretation Comments Glucose Level (test code = ZRK2690) 94 74-118 [facility] PlanoCalcium Zikez3026-47-52 06:05:00* Test Item Value Reference Range Interpretation Comments Calcium Level (test code = 96737-0) 8.4 8.4-10.2 [facility] PlanoTotal Jklniribf8346-82-69 06:05:00* Test Item Value Reference Range Interpretation Comments Total Bilirubin (test code = 1975-2) 0.9 0.2-1.2 [facility] PlanoAspartate Amino Transf (AST/SGOT) 2018-09-23 06:05:00* Test Item Value Reference Range Interpretation Comments Aspartate Amino Transf (AST/SGOT) (test code = Aspartate Amino Transf (AST/SGOT)) 58 5-34 H [facility] PlanoAlanine Aminotransferase (ALT/SGPT) 2018-09-23 06:05:00* Test Item Value Reference Range Interpretation Comments Alanine Aminotransferase (ALT/SGPT) (test code = 1742-6) 34 0-55 [facility] PlanoTotal Penyvtj1903-84-07 06:05:00* Test Item Value Reference Range Interpretation Comments Total Protein (test code = 2885-2) 6.7 6.5-8.1 [facility] PlanoAlbumin2019-03-17 06:05:00* Test Item Value Reference Range Interpretation Comments Albumin (test code = 1751-7) 3.6 3.5-5.0 [facility] PlanoGlobulin2019-03-17 06:05:00* Test Item Value Reference Range Interpretation Comments Globulin (test code = 30396-8) 3.1 2.3-3.5 [facility] PlanoAlbumin/Globulin Sceea9273-67-70 06:05:00 * Test Item Value Reference Range Interpretation Comments Albumin/Globulin Ratio (test code = 1759-0) 1.2 0.8-2.0 [facility] PlanoAlkaline Ycfwfwldrqg3112-10-11 06:05:00* Test Item Value Reference Range Interpretation Comments Alkaline Phosphatase (test code = 6768-6) 34 40-150 L [facility] PlanoWhite Blood Hertl3476-10-78 05:27:00* Test Item Value Reference Range Interpretation Comments White Blood Count (test code = 6690-2) 5.19 4.8-10.8 [facility] PlanoRed Blood Wkxjo5605-36-73 05:27:00* Test Item Value Reference Range Interpretation Comments Red Blood Count (test code = 789-8) 2.48 3.6-5.1 L [facility] PlanoHemoglobin2019-03-17 05:27:00* Test Item Value Reference Range Interpretation Comments Hemoglobin (test code = 95800-1) 7.5 12.0-16.0 L [facility] PlanoHematocrit2019-03-17 05:27:00* Test Item Value Reference Range Interpretation Comments Hematocrit (test code = 4544-3) 22.3 34.2-44.1 L Results called to [] at 0525 on 09/23/18 by Rosario Mello. ELENI [place].[facility] PlanoMean Corpuscular Acuonb3626-70-22 05:27:00* Test Item Value Reference Range Interpretation Comments Mean Corpuscular Volume (test code = 787-2) 89.9 81-99 [facility] PlanoMean Corpuscular Icsceielvn7154-28-42 05:27:00* Test Item Value Reference Range Interpretation Comments Mean Corpuscular Hemoglobin (test code = 785-6) 30.2 28-[address] [facility] Corpuscular Hemoglobin Concent 2018-09-23 05:27:00* Test Item Value Reference Range Interpretation Comments Mean Corpuscular Hemoglobin Concent (test code = 786-4) 33.6 31-35 [facility] PlanoRed Cell Distribution Krymz3961-65-13 05:27:00* Test Item Value Reference Range Interpretation Comments Red Cell Distribution Width (test code = 86882-4) 26.6 11.7 -14.4 H [facility] PlanoPlatelet Rhhdh8300-32-43 05:27:00* Test Item Value Reference Range Interpretation Comments Platelet Count (test code = 777-3) 144 140-360 [facility] PlanoNeutrophils (%) (Auto)2018-09-23 05:27:00 * Test Item Value Reference Range Interpretation Comments Neutrophils (%) (Auto) (test code = 41716-2) 41.5 38.7-80.0 [facility] PlanoLymphocytes (%) (Auto)2018-09-23 05:27:00 * Test Item Value Reference Range Interpretation Comments Lymphocytes (%) (Auto) (test code = 736-9) 51.8 18.0-39.1 H [facility] PlanoMonocytes (%) (Auto)2018-09-23 05:27:00* Test Item Value Reference Range Interpretation Comments Monocytes (%) (Auto) (test code = 5905-5) 4.0 4.4-11.3 L [facility] PlanoEosinophils (%) (Auto)2018-09-23 05:27:00 * Test Item Value Reference Range Interpretation Comments Eosinophils (%) (Auto) (test code = 713-8) 1.5 0.0-6.0 [facility] PlanoBasophils (%) (Auto)2018-09-23 05:27:00* Test Item Value Reference Range Interpretation Comments Basophils (%) (Auto) (test code = 706-2) 0.2 0.0-1.0 [facility] PlanoIM GRANULOCYTES %2018-09-23 05:27:00* Test Item Value Reference Range Interpretation Comments IM GRANULOCYTES % (test code = IM GRANULOCYTES %) 1.0 0.0- 1.0 [facility] PlanoNeutrophils # (Auto)2018-09-23 05:27:00* Test Item Value Reference Range Interpretation Comments Neutrophils # (Auto) (test code = 751-8) 2.2 2.1-6.9 [facility] PlanoLymphocytes # (Auto)2018-09-23 05:27:00* Test Item Value Reference Range Interpretation Comments Lymphocytes # (Auto) (test code = 65936-1) 2.7 1.0-3.2 [facility] PlanoMonocytes # (Auto)2018-09-23 05:27:00* Test Item Value Reference Range Interpretation Comments Monocytes # (Auto) (test code = 742-7) 0.2 0.2-0.8 [facility] PlanoEosinophils # (Auto)2018-09-23 05:27:00* Test Item Value Reference Range Interpretation Comments Eosinophils # (Auto) (test code = 711-2) 0.1 0.0-0.4 [facility] PlanoBasophils # (Auto)2018-09-23 05:27:00* Test Item Value Reference Range Interpretation Comments Basophils # (Auto) (test code = 704-7) 0.0 0.0-0.1 [facility] PlanoAbsolute Immature Granulocyte (auto 2018-09-23 05:27:00* Test Item Value Reference Range Interpretation Comments Absolute Immature Granulocyte (auto (peace t code = Absolute Immature Granulocyte (auto) 0.05 0-0.1 [facility] PlanoDifferential Total Cells Counted 2018-09-22 13:15:00* Test Item Value Reference Range Interpretation Comments Differential Total Cells Counted (test code = Differen tial Total Cells Counted) 100 [facility] PlanoNeutrophils % (Manual)2018-09-22 13:15:00 * Test Item Value Reference Range Interpretation Comments Neutrophils % (Manual) (test code = 74597-5) 70 40-74 [facility] PlanoLymphocytes % (Manual)2018-09-22 13:15:00 * Test Item Value Reference Range Interpretation Comments Lymphocytes % (Manual) (test code = 737-7) 23 19-48 [facility] PlanoMonocytes % (Manual)2018-09-22 13:15:00* Test Item Value Reference Range Interpretation Comments Monocytes % (Manual) (test code = 744-3) 4 3.4-9.0 [facility] PlanoEosinophils % (Manual)2018-09-22 13:15:00 * Test Item Value Reference Range Interpretation Comments Eosinophils % (Manual) (test code = 714-6) 1 0-7 [facility] PlanoBasophils % (Manual)2018-09-22 13:15:00* Test Item Value Reference Range Interpretation Comments Basophils % (Manual) (test code = 60109-7) 2 0-1.5 H [facility] PlanoPoikilocytosis2019-03-16 13:15:00* Test Item Value Reference Range Interpretation Comments Poikilocytosis (test code = 779-9) MODERATE [facility] PlanoTear Drop Vqxci4084-92-34 13:15:00* Test Item Value Reference Range Interpretation Comments Tear Drop Cells (test code = 7791-7) MODERATE [facility] PlanoElliptocytes2019-03-16 13:15:00* Test Item Value Reference Range Interpretation Comments Elliptocytes (test code = 79607-2) MODERATE [facility] Hospitalchistocytes2019-03-16 13:15:00* Test Item Value Reference Range Interpretation Comments Schistocytes (test code = 800-3) FEW [facility] PlanoTriglycerides Rpkvq4769-75-69 06:31:00* Test Item Value Reference Range Interpretation Comments Triglycerides Level (test code = 2571-8) 99 0-149 [facility] PlanoCholesterol Sjrlw4543-13-92 06:31:00* Test Item Value Reference Range Interpretation Comments Cholesterol Level (test code = 2093-3) 171 0-199 Less than 200 mg/dL Low Mbih137 - 239 mg/dL Borderline Kpur640 m g/dl and greater High Risk [facility] PlanoLDL Fqedkjwxfds6574-88-56 06:31:00* Test Item Value Reference Range Interpretation Comments LDL Cholesterol (test code = 2089-1) 107 60-130 [facility] PlanoHDL Vrddspjxgjh8645-82-83 06:31:00* Test Item Value Reference Range Interpretation Comments HDL Cholesterol (test code = 2085-9) 44 40-60 [facility] PlanoCholesterol/HDL Vuvbi1491-24-57 06:31:00 * Test Item Value Reference Range Interpretation Comments Cholesterol/HDL Ratio (test code = 9830-1) 3.9 3.0-3.6 H [facility] PlanoCreatine Kinase WH3287-50-75 06:24:00* Test Item Value Reference Range Interpretation Comments Creatine Kinase MB (test code = 18972-2) 0.20 0-5.0 [facility] PlanoTroponin [id number] 06:24:00* Test Item Value Reference Range Interpretation Comments Troponin I (test code = SQE4034) 0.002 0-0.300 [facility] PlanoCreatine Csngiu6143-04-43 06:09:00* Test Item Value Reference Range Interpretation Comments Creatine Kinase (test code = 2157-6) 28 29-168 L [facility] PlanoCT ABDOMEN/PELVIS P4443-15-73 17:07:00 [place] [address] Patient Name: SANTO RAJPUT MR #: [id number] : 1985 Age/Sex: 33/F Req #: [id number] Adm Physician: NICOLAS VILLA MD Ordered by: THEO CORRAL MD Report #: [id number] Location: [facility] Room/Bed: [facility] Procedure: [id number] CT/CT ABDOMEN/PELVIS W Exam Date: 09/21/18 Exam [...] adnexa. LYMPH NODES: No lymphadenopathy. VESSELS: Abdo bettnia aorta, IVC and portal system unremarkable. PERITONEUM [...] 5:19 PM Dictated By: JAYCE NETTLES MD Electronicall y Signed By: JAYCE NETTLES MD on 09/21/181718 Transcribed By: LEVON on 09/21 COPY TO: THEO CORRAL MD Hnhahwju2438-39-74 12:32:00* Test Item Value Reference Range Interpretation Comments Ferritin (test code = 2276-4) 166.20 4.63-204.00 [facility] Iron Binding Ulsygsbv0102-69-72 10:27:00* Test Item Value Reference Range Interpretation Comments Total Iron Binding Capacity (test code = 2500-7) 280 261-4 78 --- 09/21/18 0932 ---TIBC previously reported as: 281 ug/dL [facility]ferr[facility]2019-03-15 09:59:00* Test Item Value Reference Range Interpretation Comments Transferrin (test code = 3034-6) 200 180-382 [facility] Thyroxine Vjxyx7635-17-92 09:59:00* Test Item Value Reference Range Interpretation Comments Free Thyroxine Index (test code = 26730-9) 3.0353 1.4-3.8 [facility]Thyroxine (T4)2018-09-21 09:59:00* Test Item Value Reference Range Interpretation Comments Thyroxine (T4) (test code = 3026-2) 10.42 4.5-10.9 Our current method for Total T4 is not recommended for use as the only marker fo r evaluating patients for thyroid disorders.[facility]anoTriiodothyronine (T3) Xhgtvw9370-27-50 09:59:00* Test Item Value Reference Range Interpretation Comments Triiodothyronine (T3) Uptake (test code = 3050-2) 29.13 22.5 -37.0 [facility]anoThyroid Stimulating Hormone (TSH) 2018-09-21 09:59:00* Test Item Value Reference Range Interpretation Comments Thyroid Stimulating Hormone (TSH) (test code = 88525-6) 3.157 0.350-4.940 [facility]anoVitamin B12 Srlpp4776-66-23 09:20:00* Test Item Value Reference Range Interpretation Comments Vitamin B12 Level (test code = 06631-9) 8 213-816 L [facility]anoIron Afrpv2539-53-54 09:11:00* Test Item Value Reference Range Interpretation Comments Iron Level (test code = 2498-4) 124 50-170 [facility]Percent Iron Nnmxwrfgcg7436-04-18 09:11:00* Test Item Value Reference Range Interpretation Comments Percent Iron Saturation (test code = 2502-3) 44 15-50 [facility]Percent Reticulocyte Mgjqn1196-69-66 08:34:00* Test Item Value Reference Range Interpretation Comments Percent Reticulocyte Count (test code = 15951-9) 1.5 0.8-2 .2 [facility]anoUrine FWT1709-72-87 02:32:00* Test Item Value Reference Range Interpretation Comments Urine WBC (test code = 5821-4) NONE 0-5 [facility]ano[facility] IOZ2576-47-69 02:32:00* Test Item Value Reference Range Interpretation Comments Urine RBC (test code = 30703-7) NONE 0-5 [facility] Owvopalg3013-95-12 02:32:00* Test Item Value Reference Range Interpretation Comments Urine Bacteria (test code = 48360-6) FEW NONE [facility]Urine Epithelial Avobk8667-06-85 02:32:00 * Test Item Value Reference Range Interpretation Comments Urine Epithelial Cells (test code = 76174-4) NONE NONE [facility] PlanoNucleated Red Blood Cwrrw5145-49-84 02:26:00* Test Item Value Reference Range Interpretation Comments Nucleated Red Blood Cells (test code = 40492-8) 1 [facility] PlanoPolychromasia2019-03-15 02:26:00* Test Item Value Reference Range Interpretation Comments Polychromasia (test code = 26861-2) FEW [facility]anoMicrocytosis2019-03-15 02:26:00* Test Item Value Reference Range Interpretation Comments Microcytosis (test code = 741-9) MODERATE [facility]anoOvalocytes2019-03-15 02:26:00* Test Item Value Reference Range Interpretation Comments Ovalocytes (test code = 774-0) FEW [facility]anoUrine Cbxsh0212-39-15 02:17:00* Test Item Value Reference Range Interpretation Comments Urine Color (test code = 5778-6) YELLOW YELLOW [facility] Gndafwj1563-38-54 02:17:00* Test Item Value Reference Range Interpretation Comments Urine Clarity (test code = 68018-4) CLEAR CLEAR [facility]anoUrine Specific Gejrhit9645-04-42 02:17:00 * Test Item Value Reference Range Interpretation Comments Urine Specific [place] (test code = 5811-5) 1.020 1.010-1.02 5 [facility]anoU[facility] sW0679-13-36 02:17:00* Test Item Value Reference Range Interpretation Comments Urine pH (test code = 91147-2) 6 5-7 [facility] Leukocyte Zcgzzidu4634-26-83 02:17:00* Test Item Value Reference Range Interpretation Comments Urine Leukocyte Esterase (test code = 5799-2) NEGATIVE NEGATIVE [facility] Zhitker4205-94-24 02:17:00* Test Item Value Reference Range Interpretation Comments Urine Nitrite (test code = 18526-2) NEGATIVE NEGATIVE [facility] Pponspq7293-35-93 02:17:00* Test Item Value Reference Range Interpretation Comments Urine Protein (test code = 5804-0) NEGATIVE NEGATIVE [facility] Glucose (UA)2018-09-21 02:17:00* Test Item Value Reference Range Interpretation Comments Urine Glucose (UA) (test code = 2349-9) NEGATIVE NEGATIVE [facility] Fcoygtt3212-91-21 02:17:00* Test Item Value Reference Range Interpretation Comments Urine Ketones (test code = 92998-3) NEGATIVE NEGATIVE [facility] Zhsxuydzgrbs8224-21-36 02:17:00* Test Item Value Reference Range Interpretation Comments Urine Urobilinogen (test code = 86271-2) 0.2 0.2-1 [facility] Ywjnfwecw0001-94-71 02:17:00* Test Item Value Reference Range Interpretation Comments Urine Bilirubin (test code = 1978-6) NEGATIVE NEGATIVE [facility] Jqnls5819-55-52 02:17:00* Test Item Value Reference Range Interpretation Comments Urine Blood (test code = 84284-1) TRACE NEGATIVE H [facility]anoU[facility] Uebw0349-64-55 02:17:00* Test Item Value Reference Range Interpretation Comments Urine Test (test code = 2106-3) NEGATIVE NEGATIVE [facility]anoCHEST 2 JFQER2450-56-74 01:20:00 [facility] [address] [address] Patient Name: SANTO RAJPUT MR #: [id number] : 1985 Age/Sex: 33/F Req #: [id number] Adm Physician: Ordered by: TSERING DE LEÓN MD Report #: [id number] Location: ER Room/Bed: Procedure: [id number] DX/CHEST 2 VIEWS Exam Date: 09/21/18 Exam [...] IMPRESSION: No acute thoracic abnormality. Signed by: Ragini Austin.D. on 09/21 1:21 AM Dictated By: ROSANA BARKER MD, MD 0 Transcribed By: LEVON on 09/21/18 012 1 COPY TO: TSERING DE LEÓN MD CT CHEST [address] [place] [address] Patient Name: SANTO RAJPUT MR #: [id number] : 1985 Age/Sex: 32/F Req #: [id number] Adm Physician: Ordered by: DAYLIN LEÓN MD Report #: [id number] Location: ER Room/Bed: Procedure: [id number] CT/CT CHEST W Exam Date: 7 Exam Time: 2024 REPORT STATUS: Signed EXAM : CT CHEST W DATE: 06/30/2017 7:55 PM Time stamp on exam: 2036 hours INDICA TION: Elevated d-dimer, chest pain [...] 06/30/2017 9:12 PM Dictated By: LAYLA Randall 11 Transcribed By: LEVON on 06/30/172111 COPY TO: DAYLIN LEÓN MD VENOUS DUPLEX LWR B/L [place] [address] Patient Name : SANTO RAJPUT MR #: [id number] : 1985 Age/Sex: 32/F Adm Physician : [...] lower extremity veins bilaterally. 10 :48 Job#: [id number] EV cc: DAYLIN LEÓN MD Signature Date Dictated By: GWYN ANDRADE MD Transcribed By: [facility] on 07/02/17 <Electronically signed by GWYN ANDRADE MD><<Signature on File> >07/04/17904 COPY TO:
[2020-05-28] MEDS ORDERED: CEFTRIAXONE SOD 1 GM/NS 50 ML 50 ML IV ONE (15:45)
[2020-05-28] MEDS ORDERED: ACETAMINOPHEN 325 MG TAB PO ONE (16:15)
--- NOTE | 2020-05-28 16:25 | Diagnostic Imaging Report ---
TECHNIQUE: Frontal view of the chest. INDICATION: ^SoB ^[id number] ^1540 COMPARISON: 03/04/2020 DISCUSSION: Limited evaluation due to portable technique. Lines and hardware: Overlying EKG leads are noted. Heart and mediastinum: Cardiomediastinal silhouette is at the upper limits of normal for technique. Normal pulmonary vascularity is noted. Lungs and pleura: No focal airspace consolidation. No pleural effusion. No pneumothorax. Soft tissues and bones: No acute abnormality. IMPRESSION: Negative for acute intrathoracic process. Signed by: Niranjan Espino MD on 05/28/2020 4:22 PM
--- NOTE | 2020-05-28 17:10 | Diagnostic Imaging Report ---
EXAM: CT Chest WITH contrast- Pulmonary Embolism Protocol INDICATION: ^Y ^SoB ^[id number] ^1636 COMPARISON: None TECHNIQUE: Chest was scanned utilizing a multidetector helical scanner from the lung apex through the level of the diaphragm after administration of IV contrast. Thin section reconstructions were obtained with special concentration on the pulmonary arteries. Coronal and sagittal reformations were obtained. Pulmonary embolism protocol was performed. IV CONTRAST: 100 cc of Isovue 370 RADIATION DOSE: Total DLP: 414 mGy*cm Dose modulation, iterative reconstruction, and/or weight based adjustment of the mA/kV was utilized to reduce the radiation dose to as low as reasonably achievable. COMPLICATIONS: None FINDINGS: LINES/ TUBES: None. PULMONARY ARTERIES: Negative for central pulmonary arterial filling defect. Main pulmonary artery is of normal caliber measuring up to 2.4 cm. LUNGS AND AIRWAYS: There are patchy airspace opacities within the bilateral lower lobes, right greater than left. Negative for focal lobar consolidation or suspicious pulmonary nodule. PLEURA: Negative for effusion or pneumothorax. HEART AND MEDIASTINUM: The thyroid gland is normal. There is confluent lymphadenopathy within the anterior mediastinum, mediastinum, right hilar regions and bilateral axillary regions. Heart is of normal size. Negative for right ventricular enlargement. There is no pericardial effusion. Thoracic aorta is of normal caliber. UPPER ABDOMEN: Multiple enlarged lymph nodes are identified in the partially visualized upper abdomen. Spleen is enlarged measuring up to 13 cm. BONES: No acute osseous abnormality. SOFT TISSUES: Soft tissues are unremarkable. IMPRESSION: 1. Confluent lymphadenopathy throughout the mediastinum, axillary regions and partially visualized upper abdomen is concerning for lymphoma. In addition mild splenomegaly is noted. 2. Multifocal patchy airspace opacities of the lung bases are concerning for multifocal pneumonia. Consider atypical versus opportunistic process. 3. Negative for pulmonary embolism or secondary signs of right heart strain. The above findings were discussed with Dr. Reed on 05/28/2020 5:01 PM, who responded indicating that the communication was understood. Signed by: Niranjan Espino MD on 05/28/2020 5:07 PM
--- OUTSIDE RECORDS SUMMARY | 2020-05-28 17:15 | XMS REPORT | Continuity of Care Document ---
Author Author [facility] t Organization [facility] Address [address] [place] [address] Phone Unavailable Care Team Providers Care Paper Cutting Machine Operator Name Role Phone NONSTAFF PCP Unavailable Yuki Reed Attphys Unavailable OLGA RAY Attphys Unavailable VILLA, SOUHEIL Attphys Unavailable Meghan LEÓN Attphys Unavailable DAHU, S CHARLENE Admphys Unavailable VILLA, SOUHEIL Admphys Unavailable Payers Payer Name Policy Type Policy Number Effective Date Expiration Date Jose Angel grullon [facility] [id number] 2017 00:00:00 [facility] Problems Condition Name Condition Details Condition Category Status Onset Date Resolution Date Last Treatment Date Treating Clinician Comments Source Chest pain Chest pain Problem Active [facility] Secondary anemia Symptomatic anemia Problem Active [facility] Right anterior knee pain Problem Active [facility] Pneumonia Problem Active [facility] Allergies, Adverse Reactions, Alerts Allergy Name Allergy Type Status Severity Reaction(s) Onset Date Inacti ve Date Treating Clinician Comments Source Peanuts Allergy to substance Active 2017-06-30 00:00:00 [facility] No Known Allergies DA Active U 2015-03-02 00:00:00 [facility] Social History Social Habit Start Date Stop Date Quantity Comments Source Sex Assigned At 1985 00:00:00 1985 00:00:00 Female [facility] Medications Ordered Medication Name Filled Medication Name Start Date Stop Da te Current Medication? Ordering Clinician Indication Dosage Frequency Signature (SIG) Comments Components Source Levofloxacin (Levaquin) 500 Mg TABLET Levofloxacin (Levaquin ) 500 Mg TABLET 2020-03-04 17:47:00 Yes 750 Daily [facility] Butalb/Acetaminophen/Caffeine (Xpgndt-Qndgwfmw-Usek 50 -325-40) 1 Each TABLET Butalb/Acetaminophen/Caffeine (Nkxmsv-Kaahwhtk-Mdvt 50-325-40) 1 Each TABLET Yes 1 Every 6 Hours as needed for Migr rodney [facility] Clonazepam Clonazepam Yes .5 Every 6 Hours as n eeded for Anxiety [facility] Duloxetine Hcl (Cymbalta) 30 Mg CAPSULE. Duloxetine Hcl (Cymbalta) 30 Mg CAPSULE. Yes 30 Daily [facility] Gabapentin Gabapentin Yes 300 Twice A Day [facility] Loratadine Loratadine Yes 10 Daily [facility] Ondansetron Hcl Ondansetron Hcl Yes 4 Every 4 Hours as needed for Nausea [facility] Sumatriptan Succinate Sumatriptan Succinate Yes 50 Every Two Hours as needed for Migraine [facility] Furosemide Furosemide 2018-09-23 00:00:00 No 20 Daily as needed for Shortness Of Breath [facility] Garlic (Garlique) 5,000 Mcg TABLET Garlic (Garlique) 5,000 Mcg T ABLET 2018-09-23 00:00:00 No 5000 Daily [facility] Ketorolac Tromethamine (Toradol) 10 Mg TABLET Ketorola c Tromethamine (Toradol) 10 Mg TABLET 2018-09-23 00:00:00 No 10 Every 8 Hours as needed for Pain [facility] Flonase Flonase 2018-09-21 00:00:00 No [facility] Norethindrone Acetate Norethindrone Acetate 2018-09-21 00:00:00 No 5 Daily [facility] Vital Signs Vital Name Observation Time Observation Value Comments Source Weight 2020-03-04 15:12:00 260 [lb_av] [facility] BMI (Body Mass Index) 2020-03-04 15:12:00 43.3 kg/m2 [facility] Weight 2019-11-18 23:05:00 253 [lb_av] [facility] BMI (Body Mass Index) 2019-11-18 23:05:00 40.8 kg/m2 [facility] Procedures This patient has no known procedures. Plan of Care Planned Activity Planned Date Details Comments Source Instructions Pneumonia - Bacterial [facility] Encounters Start Date/Time End Date/Time Encounter Type Admission Type [facility] Facility Care Department Encounter ID Source 2019-11-18 22:50:00 2019-11-19 00:00:00 Departed Emergency Room 1 OLGA RAY [facility] [id number] [facility] 2018-09-21 03:11:00 2018-09-23 13:11:00 Discharged Inpatient 1 NICOLAS VILLA [facility] [id number] [facility] Results Test Description Test Time Test Comments Results Result Comments Source CT CHEST W 2020-05-28 17:01:00 [facility] : 1985 Sex: F [place] [address] Patient Name: SANTO RAJPUT MR #: [id number] : 1985 Age/Sex: 34/F Req #: [id number] Adm Physician: Ordered by: Liset Rede MD Report #: [id number] Location: ER Room/Bed: Procedure: [id number] CT/CT CHEST W Exam Date: 05/28/20 Exam Time: 163 REPORT STATUS: Signed EXAM: CT Chest WITH contrast- Pulmonary Embolism Protocol INDICATION: Y SoB [id number] COMPARISON: None TECHNIQUE: Chest was scanned utilizing a multidetector helical scanner from the lung apex through the level of the diaphragm after administration of IV contrast. Thin section reconstructions were obtained with special concentration on the pulmonary arteries. Coronal and sagittal reformations were obtained. Pulmonary embolism protocol was performed. IV CONTRAST: 100 cc of Isovue 370 RADIATION DOSE: Total DLP: 414 mGy*cm Dose modulation, iterative reconstruction, and/or weight based adjustment of the mA/kV was utilized to reduce the radiation dose to as low as reasonably achievable. COMPLICATIONS: None FINDINGS: LINES/ TUBES: None. PULMONARY ARTERIES: Negative for central pulmonary arterial filling defect. Main pulmonary artery is of normal caliber measuring up to 2.4 cm. LUNGS AND AIRWAYS: There are patchy airspace opacities within the bilateral lower lobes, right greater than left. Negative for focal lobar consolidation or suspicious pulmonary nodule. PLEURA: Negative for effusion or pneumothorax. HEART AND MEDIASTINUM: The thyroid gland is normal. There is confluent lymphadenopathy within the anterior mediastinum, mediastinum, right hilar regions and bilateral axillary regions. Heart is of normal size. Negative for right ventricular enlargement. There is no pericardial effusion. Thoracic aorta is of normal caliber. UPPER ABDOMEN: Multiple enlarged lymph nodes are identified in the partially visualized upper abdomen. Spleen is enlarged measuring up to 13 cm. BONES: No acute osseous abnormality. SOFT TISSUES: Soft tissues are unremarkable. IMPRESSION: 1. Confluent lymphadenopathy throughout the mediastinum, axillary regions and partially visualized upper abdomen is concerning for lymphoma. In addition mild splenomegaly is noted. 2. Multifocal patchy airspace opacities of the lung bases are concerning for multifocal pneumonia. Consider atypical versus opportunistic process. 3. Negative for pulmonary embolism or secondary signs of right heart strain. The above findings were discussed with Dr. Reed on 05/28/2020 5:01 PM, who responded indicating that the communication was understood. Signed by: Mio Espino MD on 05/28/2020 5:07 PM Dictated By: MIO ESPINO MD 06 Transcribed By: LEVON on 05/28/201706 COPY TO: LISET REED MD CHEST SINGLE (PORTABLE) 2020-05-28 16:21:00 [facility] 1985 Sex: F [facility] [address] [place] [address] Patient Name: SANTO RAJPUT MR #: [id number] : 1985 Age/Sex: 34/F Req #: [id number] Adm Physician: Ordered by: Liset Reed MD Report #: [id number] Location: ER Room/Bed: Procedure: [id number] DX/CHEST SINGLE (PORTABLE) Exam Date: 05/28/20 Exam Time: 154 REPORT STATUS: Signed TECHNIQUE: Frontal view of the chest. INDICATION: SoB [id number] COMPARISON: 03/04/2020 DISCUSSION: Limited evaluation due to portable technique. Lines and hardware: Overlying EKG leads are noted. Heart and mediastinum: Cardiomediastinal silhouette is at the upper limits of normal for technique. Normal pulmonary vascularity is noted. Lungs and pleura: No focal airspace consolidation. No pleural effusion. No pneumothorax. Soft tissues and bones: No acute abnormality. IMPRESSION: Negative for acute intrathoracic process. Signed by: Mio Espino MD on 05/28/2020 4:22 PM Dictated By: MIO ESPINO MD 21 Transcribed By: LEVON on 05/28/201621 COPY TO: LISET REED MD CHEST SINGLE (PORTABLE) 2020-03-04 16:20:00 [place] [address] Patient Name: SANTO RAJPUT MR #: [id number] : 1985 Age/Sex: 34/F Req #: [id number] Adm Physician: Ordered by: DAYLIN LEÓN MD Report #: [id number] Location: ER Room/Bed: Procedure: [id number] DX/CHEST SINGLE (PORTABLE) Exam Date: 03/04/20 Exam [...] procedure less than one hour duration 2020-02-09 6 15:52:00 Test Item Lactic Acid Level (test code = Lactic Acid Level) 0.7 0.5- 2.0 [facility] procedure less than one hour mvicruzh2263-90-82 15:52:00* Test Item Value Reference Range Interpretation [...] test is a rapid, real-time RT-PCR te intended for the qualitative detection of nucleic acid from SARS-CoV-2 in jovani opharyngeal swab specimen collected from individuals suspected of COVID-19 by formerly [facility] healthcare provider. This test has [...] EUA is revoked under 564(g) of the ACT.[facility] leukocytes automated count (number/volume) 2020-03-04 15:22:00* Test Item Value Reference Range Interpretation Comments White Blood Count (test code = 6690-2) 16.32 4.8-10.8 [facility] erythrocytes automated count (number/volume)2020-03-04 15:22:00* Test Item Value Reference Range Interpretation Comments Red Blood Count (test code = 789-8) 3.81 3.6-5.1 [facility] hemoglobin measurement (moles/volume)2020-03-04 15:22:00* Test Item Value Reference Range Interpretation Comments Hemoglobin (test code = 28605-0) 7.6 12.0-16.0 This test has been rerun and double checked for accuracy.[facility]AllenAutomated blood hematocrit (volume fraction)2020-03-04 15:22:00* Test Item Value Reference Range Interpretation Comments Hematocrit (test code = 4544-3) 25.4 34.2-44.1 [facility]AllenAutomated erythrocyte mean corpuscular ojazss1857-25-95 15:22:00* Test Item Value Reference Range Interpretation Comments Mean Corpuscular Volume (test code = 787-2) 66.7 81-99 [facility]AllenAutomated erythrocyte mean corpuscular hemoglobin (mass per erythrocyte)2020-03-04 15:22:00* Test Item Value Reference Range Interpretation Comments Mean Corpuscular Hemoglobin (test code = 785-6) 19.9 28-32 [facility]AllenAutomated erythrocyte mean corpuscular hemoglobin concentration measurement (mass/volume)2020-03-04 15:22:00* Test Item Value Reference Range Interpretation Comments Mean Corpuscular Hemoglobin Concent (test code = 786-4) 29.9 31-35 [facility] McAllenRDW AyrPi-Tcn8458-23-26 15:22:00* Test Item Value Reference Range Interpretation Comments Red Cell Distribution Width (test code = 23609-2) 21.2 11.7 -14.4 [facility]AllenAutomated blood platelet count (count/volume)2020-03-04 15:22:00* Test Item Value Reference Range Interpretation Comments Platelet Count (test code = 777-3) 299 140-360 [facility]AllenAutomated blood segmented neutrophil count as percentage of total wmsjiinwzc8251-84-53 15:22:00* Test Item Value Reference Range Interpretation Comments Neutrophils (%) (Auto) (test code = 01401-2) 69.0 38.7-80.0 [facility]AllenAutomated blood lymphocyte count as percentage ot total jiefwzubdk9762-33-43 15:22:00* Test Item Value Reference Range Interpretation Comments Lymphocytes (%) (Auto) (test code = 736-9) 13.2 18.0-39.1 [facility]AllenAutomated blood monocyte count as percentage of total ujxvhzhzwv5022-19-28 15:22:00* Test Item Value Reference Range Interpretation Comments Monocytes (%) (Auto) (test code = 5905-5) 10.0 4.4-11.3 [facility]AllenAutomated blood eosinophil count as percentage of total ciifsmejdn8509-75-03 15:22:00* Test Item Value Reference Range Interpretation Comments Eosinophils (%) (Auto) (test code = 713-8) 5.8 0.0-6.0 [facility]AllenAutomated blood basophil count as percentage of total qqqzoeanjf6408-29-54 15:22:00* Test Item Value Reference Range Interpretation Comments Basophils (%) (Auto) (test code = 706-2) 0.9 0.0-1.0 [facility]AllenFluoroscopic procedure less than one hour mbjelxxp9492-61-89 15:22:00* Test Item Value Reference Range Interpretation Comments IM GRANULOCYTES % (test code = IM GRANULOCYTES %) 1.1 0.0- 1.0 [facility]AllenAutomated blood neutrophil count 2020-03-04 15:22:00* Test Item Value Reference Range Interpretation Comments Neutrophils # (Auto) (test code = 751-8) 11.3 2.1-6.9 [facility]Allen[facility] lymphocytes count (number/volume) 2020-03-04 15:22:00* Test Item Value Reference Range Interpretation Comments Lymphocytes # (Auto) (test code = 94752-4) 2.2 1.0-3.2 [facility] monocytes automated count (number/volume)2020-03-04 15:22:00* Test Item Value Reference Range Interpretation Comments Monocytes # (Auto) (test code = 742-7) 1.6 0.2-0.8 [facility]AllenAutomated blood eosinophil count 2020-03-04 15:22:00* Test Item Value Reference Range Interpretation Comments Eosinophils # (Auto) (test code = 711-2) 1.0 0.0-0.4 [facility]AllenAutomated blood basophil count (count/volume)2020-03-04 15:22:00* Test Item Value Reference Range Interpretation Comments Basophils # (Auto) (test code = 704-7) 0.2 0.0-0.1 [facility]AllenFluoroscopic procedure less than one hour ulmehakp3068-82-03 15:22:00* Test Item Value Reference Range Interpretation Comments Absolute Immature Granulocyte (auto (peace t code = Absolute Immature Granulocyte (auto) 0.18 0-0.1 [facility] platelets count by estimate (number/volume)2020-03-04 15:22:00* Test Item Value Reference Range Interpretation Comments Platelet Estimate (test code = 47019-6) ADEQUATE [facility]AllenPlatelet ancqootvzh5475-66-04 15:22:00* Test Item Value Reference Range Interpretation Comments Platelet Morphology Comment (test code = 15981-7) NORMAL [facility]AllenBlood polychromasia detection by light pcvhoitgvf7667-77-46 15:22:00* Test Item Value Reference Range Interpretation Comments Polychromasia (test code = 94229-7) FEW [facility]AllenBlood hypochromia detection by light wsptvljkev9904-74-93 15:22:00* Test Item Value Reference Range Interpretation Comments Hypochromasia (test code = 728-6) MODERATE [facility]AllenBlood anisocytosis detection by light hqylcjrpza6090-43-93 15:22:00* Test Item Value Reference Range Interpretation Comments Anisocytosis (test code = 702-1) MODERATE [facility]AllenBlood microcytes detection by light aazmhnxfrx5626-36-13 15:22:00* Test Item Value Reference Range Interpretation Comments Microcytosis (test code = 741-9) MODERATE [facility]AllenBlood target cells detection by light ebtgbqhlnx6558-49-51 15:22:00* Test Item Value Reference Range Interpretation Comments Target Cells (test code = 07339-4) FEW [facility]AllenUrine color aylnnzslbozmh6013-22-45 15:22:00* Test Item Value Reference Range Interpretation Comments Urine Color (test code = 5778-6) YELLOW YELLOW [facility]AllenUrine dodmpxr9718-20-09 15:22:00* Test Item Value Reference Range Interpretation Comments Urine Clarity (test code = 28471-1) CLOUDY CLEAR [facility] gravity of Urine by Test strip 2020-03-04 15:22:00* Test Item Value Reference Range Interpretation Comments Urine Specific [place] (test code = 5811-5) 1.025 1.010-1.02 5 [facility]AllenUrine pH measurement by automated test lkzft6044-37-96 15:22:00* Test Item Value Reference Range Interpretation Comments Urine pH (test code = 11966-9) 6 5-7 [facility]AllenUrine leukocyte esterase detection by zttehbzn2905-33-23 15:22:00* Test Item Value Reference Range Interpretation Comments Urine Leukocyte Esterase (test code = 5799-2) NEGATIVE NEGATIVE [facility]AllenUrine nitrite axsruzzua0853-61-91 15:22:00* Test Item Value Reference Range Interpretation Comments Urine Nitrite (test code = 38617-8) NEGATIVE NEGATIVE [facility]AllenUrine protein measurement by test strip (mass/volume)2020-03-04 15:22:00* Test Item Value Reference Range Interpretation Comments Urine Protein (test code = 5804-0) 2+ NEGATIVE [facility]AllenUrine glucose ulsyomotr1052-75-24 15:22:00* Test Item Value Reference Range Interpretation Comments Urine Glucose (UA) (test code = 2349-9) NEGATIVE NEGATIVE [facility]AllenUrine ketones detection by automated test eyprw2074-68-95 15:22:00* Test Item Value Reference Range Interpretation Comments Urine Ketones (test code = 21875-9) 1+ NEGATIVE [facility] McAllenUrine urobilinogen measurement by test strip (mass/volume)2020-03-04 15:22:00* Test Item Value Reference Range Interpretation Comments Urine Urobilinogen (test code = 58598-5) 1 0.2-1 [facility]AllenUrine total bilirubin measurement (mass/volume)2020-03-04 15:22:00* Test Item Value Reference Range Interpretation Comments Urine Bilirubin (test code = 1978-6) MODERATE NEGATIVE [facility]AllenUrine erythrocytes sfcvcbhwb9625-37-11 15:22:00* Test Item Value Reference Range Interpretation Comments Urine Blood (test code = 70310-0) MODERATE NEGATIVE [facility] McAllenAutomated urine sediment leukocyte count by microscopy (number/high power field)2020-03-04 15:22:00* Test Item Value Reference Range Interpretation Comments Urine WBC (test code = 5821-4) 6-10 0-5 [facility]AllenErythrocytes detection in urine sediment by light fqhoizdqli4614-18-53 15:22:00* Test Item Value Reference Range Interpretation Comments Urine RBC (test code = 49712-5) 0-5 0-5 [facility]AllenBacteria detection in urine sediment by light xbwuqblkwi2197-40-32 15:22:00* Test Item Value Reference Range Interpretation Comments Urine Bacteria (test code = 50822-5) MODERATE NONE [facility]AllenEpithelial cells detection in urine sediment by light nirwuvbpwq8946-69-44 15:22:00* Test Item Value Reference Range Interpretation Comments Urine Epithelial Cells (test code = 60573-1) MODERATE NONE [facility] McAllenUrine human chorionic gonadotropin (hCG) bbctvnmyf5866-69-84 15:22:00* Test Item Value Reference Range Interpretation Comments Urine Test (test code = 2106-3) NEGATIVE NEGATIVE [facility] Centererum or plasma sodium measurement (moles/volume)2020-03-04 15:22:00* Test Item Value Reference Range Interpretation Comments Sodium Level (test code = 2951-2) 131 136-145 [facility] Centererum or plasma potassium measurement (moles/volume)2020-03-04 15:22:00* Test Item Value Reference Range Interpretation Comments Potassium Level (test code = 2823-3) 4.3 3.5-5.1 [facility]ererum or plasma chloride measurement (moles/volume)2020-03-04 15:22:00* Test Item Value Reference Range Interpretation Comments Chloride Level (test code = 2075-0) 98 98-107 [facility]ererum or plasma carbon dioxide, total measurement (moles/volume)2020-03-04 15:22:00* Test Item Value Reference Range Interpretation Comments Carbon Dioxide Level (test code = 2028-9) 20 22-29 [facility]ererum or plasma anion jzu6189-40-86 15:22:00* Test Item Value Reference Range Interpretation Comments Anion Gap (test code = 92097-8) 17.3 8-16 [facility]ererum or plasma urea nitrogen measurement (mass/volume)2020-03-04 15:22:00* Test Item Value Reference Range Interpretation Comments Blood Urea Nitrogen (test code = 3094-0) 10 7-26 [facility] Centererum or plasma creatinine measurement (mass/volume)2020-03-04 15:22:00* Test Item Value Reference Range Interpretation Comments Creatinine (test code = 2160-0) 0.80 0.57-1.11 [facility]ererum or plasma urea nitrogen/creatinine mass anzvm6471-11-58 15:22:00* Test Item Value Reference Range Interpretation Comments BUN/Creatinine Ratio (test code = 3097-3) 13 6-25 [facility]AllenEstimated glomerular filtration rate (GFR) jjhpjrfsjjopt8905-32-81 15:22:00* Test Item Value Reference Range Interpretation Comments Estimat Glomerular Filtration Rate (test code = 092857539) > 60 >60 Ranges were taken from the National Kidney Disease Education Program and the [employer] literature.Reference ranges:60 or greater: Dcuisv08-17 ( for 3 consecutive months): Chronic kidney disease 15 or less: Kidney failureSouth [facility] Health System McAllenGlucose avhobbluowv1003-21-36 15:22:00* Test Item Value Reference Range Interpretation Comments Glucose Level (test code = JXR1089) 95 74-118 [facility]ererum or plasma calcium measurement (mass/volume)2020-03-04 15:22:00* Test Item Value Reference Range Interpretation Comments Calcium Level (test code = 27188-4) 8.4 8.4-10.2 [facility]ererum or plasma total bilirubin measurement (mass/volume)2020-03-04 15:22:00* Test Item Value Reference Range Interpretation Comments Total Bilirubin (test code = 1975-2) 0.3 0.2-1.2 [facility]AllenFluoroscopic procedure less than one hour govwhpqm7392-02-91 15:22:00* Test Item Value Reference Range Interpretation Comments Aspartate Amino Transf (AST/SGOT) (test code = Aspartate Amino Transf (AST/SGOT)) 38 5-34 [facility] Centererum or plasma alanine aminotransferase measurement (enzymatic activity/volume)2020-03-04 15:22:00* Test Item Value Reference Range Interpretation Comments Alanine Aminotransferase (ALT/SGPT) (test code = 1742-6) 6 0-55 [facility] Centererum or plasma protein measurement (mass/volume)2020-03-04 15:22:00* Test Item Value Reference Range Interpretation Comments Total Protein (test code = 2885-2) 8.3 6.5-8.[address] [facility] or plasma albumin measurement (mass/volume)2020-03-04 15:22:00* Test Item Value Reference Range Interpretation Comments Albumin (test code = 1751-7) 2.7 3.5-5.0 [facility]AllenPlasma globulin measurement (mass/volume) 2020-03-04 15:22:00* Test Item Value Reference Range Interpretation Comments Globulin (test code = 52424-4) 5.6 2.3-3.5 [facility] Centererum or plasma albumin/globulin mass bquys6051-42-57 15:22:00* Test Item Value Reference Range Interpretation Comments Albumin/Globulin Ratio (test code = 1759-0) 0.5 0.8-2.0 [facility]ererum or plasma alkaline phosphatase measurement (enzymatic activity/volume)2020-03-04 15:22:00* Test Item Value Reference Range Interpretation Comments Alkaline Phosphatase (test code = 6768-6) 75 40-150 [facility] McAllenKNEE RIGHT THREE HAZSG3030-45-14 00:02:00 [facility] [address] [place] [address] Patient Name: SANTO RAJPUT MR #: [id number] : 1985 Age/Sex: 34/F Req #: [id number] Adm Physician: Ordered by: OLGA RAY DO Report #: [id number] Location: ER Room/Bed: Procedure: [id number] DX/KNEE RIGHT THRE E VIEWS Exam Date: [...] DOSS MD 0003 Transcribed By: LEVON on 11/19/192 COPY TO: OLGA RAY DO Blood leukocytes automated count (number/volume) 2019-11-18 23:26:00* Test Item Value Reference Range Interpretation Comments White Blood Count (test code = 6690-2) 10.36 4.8-10.8 [facility]AllenBlood erythrocytes automated count (number/volume)2019-11-18 23:26:00* Test Item Value Reference Range Interpretation Comments Red Blood Count (test code = 789-8) 4.39 3.6-5.1 [facility] McAllenBlood hemoglobin measurement (moles/volume)2019-11-18 23:26:00* Test Item Value Reference Range Interpretation Comments Hemoglobin (test code = 33183-3) 10.2 12.0-16.0 [facility] McAllenAutomated blood hematocrit (volume fraction)2019-11-18 23:26:00* Test Item Value Reference Range Interpretation Comments Hematocrit (test code = 4544-3) 34.1 34.2-44.1 [facility] McAllenAutomated erythrocyte mean corpuscular lbepcz4971-27-46 23:26:00* Test Item Value Reference Range Interpretation Comments Mean Corpuscular Volume (test code = 787-2) 77.7 81-99 [facility] McAllenAutomated erythrocyte mean corpuscular hemoglobin (mass per erythrocyte)2019-11-18 23:26:00* Test Item Value Reference Range Interpretation Comments Mean Corpuscular Hemoglobin (test code = 785-6) 23.2 28-32 [facility] McAllenAutomated erythrocyte mean corpuscular hemoglobin concentration measurement (mass/volume)2019-11-18 23:26:00* Test Item Value Reference Range Interpretation Comments Mean Corpuscular Hemoglobin Concent (test code = 786-4) 29.9 31-35 [facility] McAllenRDW WehGz-Sik6735-76-11 23:26:00* Test Item Value Reference Range Interpretation Comments Red Cell Distribution Width (test code = 57364-8) 18.6 11.7 -14.4 [facility] McAllenAutomated blood platelet count (count/volume)2019-11-18 23:26:00* Test Item Value Reference Range Interpretation Comments Platelet Count (test code = 777-3) 252 140-360 [facility] McAllenAutomated blood segmented neutrophil count as percentage of total lyrmsbuxog0495-93-74 23:26:00* Test Item Value Reference Range Interpretation Comments Neutrophils (%) (Auto) (test code = 02947-4) 71.9 38.7-80.0 [facility] McAllenAutomated blood lymphocyte count as percentage ot total ykgzyzluqr5290-02-38 23:26:00* Test Item Value Reference Range Interpretation Comments Lymphocytes (%) (Auto) (test code = 736-9) 7.8 18.0-39.1 [facility] McAllenAutomated blood monocyte count as percentage of total aieucwteap4242-90-58 23:26:00* Test Item Value Reference Range Interpretation Comments Monocytes (%) (Auto) (test code = 5905-5) 5.0 4.4-11.3 [facility] McAllenAutomated blood eosinophil count as percentage of total yywdgqmjfs0256-56-06 23:26:00* Test Item Value Reference Range Interpretation Comments Eosinophils (%) (Auto) (test code = 713-8) 13.8 0.0-6.0 [facility] McAllenAutomated blood basophil count as percentage of total knjlcwvoga7250-96-42 23:26:00* Test Item Value Reference Range Interpretation Comments Basophils (%) (Auto) (test code = 706-2) 1.2 0.0-1.0 [facility] McAllenFluoroscopic procedure less than one hour zskncnvz1015-44-04 23:26:00* Test Item Value Reference Range Interpretation Comments IM GRANULOCYTES % (test code = IM GRANULOCYTES %) 0.3 0.0- 1.0 [facility] McAllenAutomated blood neutrophil count 2019-11-18 23:26:00* Test Item Value Reference Range Interpretation Comments Neutrophils # (Auto) (test code = 751-8) 7.5 2.1-6.9 [facility] McAllenBlood lymphocytes count (number/volume) 2019-11-18 23:26:00* Test Item Value Reference Range Interpretation Comments Lymphocytes # (Auto) (test code = 79567-4) 0.8 1.0-3.2 [facility]Bl[facility] monocytes automated count (number/volume)2019-11-18 23:26:00* Test Item Value Reference Range Interpretation Comments Monocytes # (Auto) (test code = 742-7) 0.5 0.2-0.8 [facility] McAllenAutomated blood eosinophil count 2019-11-18 23:26:00* Test Item Value Reference Range Interpretation Comments Eosinophils # (Auto) (test code = 711-2) 1.4 0.0-0.4 [facility] McAllenAutomated blood basophil count (count/volume)2019-11-18 23:26:00* Test Item Value Reference Range Interpretation Comments Basophils # (Auto) (test code = 704-7) 0.1 0.0-0.1 [facility] McAllenFluoroscopic procedure less than one hour qvywipyb9433-82-88 23:26:00* Test Item Value Reference Range Interpretation Comments Absolute Immature Granulocyte (auto (peace t code = Absolute Immature Granulocyte (auto) 0.03 0-0.1 [facility] Centererum or plasma sodium measurement (moles/volume)2019-11-18 23:26:00* Test Item Value Reference Range Interpretation Comments Sodium Level (test code = 2951-2) 137 136-145 [facility] Centererum or plasma potassium measurement (moles/volume)2019-11-18 23:26:00* Test Item Value Reference Range Interpretation Comments Potassium Level (test code = 2823-3) 3.7 3.5-5.1 [facility] Centererum or plasma chloride measurement (moles/volume)2019-11-18 23:26:00* Test Item Value Reference Range Interpretation Comments Chloride Level (test code = 2075-0) 105 98-107 [facility] Centererum or plasma carbon dioxide, total measurement (moles/volume)2019-11-18 23:26:00* Test Item Value Reference Range Interpretation Comments Carbon Dioxide Level (test code = 2028-9) 23 22-29 [facility] Centererum or plasma anion gcx3332-59-92 23:26:00* Test Item Value Reference Range Interpretation Comments Anion Gap (test code = 50863-4) 12.7 8-16 [facility] Centererum or plasma urea nitrogen measurement (mass/volume)2019-11-18 23:26:00* Test Item Value Reference Range Interpretation Comments Blood Urea Nitrogen (test code = 3094-0) 9 7-26 [facility] Centererum or plasma creatinine measurement (mass/volume)2019-11-18 23:26:00* Test Item Value Reference Range Interpretation Comments Creatinine (test code = 2160-0) 0.73 0.57-1.11 [facility] Centererum or plasma urea nitrogen/creatinine mass ffjfk4709-86-30 23:26:00* Test Item Value Reference Range Interpretation Comments BUN/Creatinine Ratio (test code = 3097-3) 12 6-25 [facility] McAllenEstimated glomerular filtration rate (GFR) cdlhiismzbeuh5042-81-27 23:26:00* Test Item Value Reference Range Interpretation Comments Estimat Glomerular Filtration Rate (test code = 229577501) > 60 >60 Ranges were taken from the National Kidney Disease Education Program and the [facility]ney Foundation literature.Reference ranges:60 or greater: Owyljs93-54 ( for 3 consecutive months): Chronic kidney disease 15 or less: Kidney failureSouth [facility] Health System McAllenGlucose kdnlzsldows7468-67-36 23:26:00* Test Item Value Reference Range Interpretation Comments Glucose Level (test code = MQX0338) 123 74-118 [facility] Centererum or plasma calcium measurement (mass/volume)2019-11-18 23:26:00* Test Item Value Reference Range Interpretation Comments Calcium Level (test code = 90248-3) 9.0 8.4-10.2 [facility]TREPTOCOCCUS PCR YYFAHZ5028-00-61 07:51:00* Test Item Value Reference Range Interpretation Comments STREPTOCOCCUS DYSGALACTIAE (test code = STREPGC) NEGATIVE FOR G/C N EGATIVE STREPA MOLECULAR (test code = STREPAMOL) NEGATIVE FOR GRP A NEGATIV E CBC W/AUTO QFQX2394-12-61 04:39:00* Test Item Value Reference Range Interpretation [...] = MDIFF) NO, ONLY SCAN NEEDED DIFFERENTIAL [id number] 04:39:00* Test Item Value Reference Range Interpretation Comments STAIN ACCEPTABILITY (test code = STN ACCEPTABLE) STAIN ACCEPTABLE HYPOCHROMIA (test code = HYPO) 1+ POIKILOCYTOSIS (test code = POIK) 1+ ANISOCYTOSIS (test code = ANISO) 1+ PLATELET ESTIMATE (test code = PLTEST) ADEQUATE PLATELET MORPHOLOGY (test code = PLTMORPH) NORMAL CBC W/AUTO TLRW3045-06-18 04:37:00* Test Item Value Reference Range Interpretation [...] = MDIFF) NO, ONLY SCAN NEEDED DIFFERENTIAL [id number] 04:37:00* Test Item Value Reference Range Interpretation Comments STAIN ACCEPTABILITY (test code = STN ACCEPTABLE) CABOT RINGS (test code = CAB) MORPHOLOGY COMMENT (test code = MOC) PLATELET ESTIMATE (test code = PLTEST) PLATELET MORPHOLOGY (test code = PLTMORPH) CBC W/AUTO [id number] 04:37:00* Test Item Value Reference Range Interpretation [...] = MDIFF) NO, ONLY SCAN NEEDED DIFFERENTIAL DXKH9871-93-03 04:37:00* Test Item Value Reference Range Interpretation Comments STAIN ACCEPTABILITY (test code = STN ACCEPTABLE) CABOT RINGS (test code = CAB) MORPHOLOGY COMMENT (test code = MOC) PLATELET ESTIMATE (test code = PLTEST) PLATELET MORPHOLOGY (test code = PLTMORPH) URINALYSIS [id number] 02:41:00* Test Item Value Reference Range Interpretation [...] LPF NONE-FEW A Urine Source? Clean CatchURINALYSIS [id number] 02:38:00* Test Item Value Reference Range Interpretation [...] HPF NONE Urine Source? Clean CatchBASIC METABOLIC [id number] 02:38:00* Test Item Value Reference Range Interpretation [...] CA) 8.2 mg/dL 8.4-10.2 L HEPATIC FUNCTION [id number] 02:38:00* Test Item Value Reference Range Interpretation [...] ALKP) 104 U/L 38-126 N BASIC METABOLIC BBHWZ2332-02-58 02:23:00* Test Item Value Reference Range Interpretation [...] CA) 8.2 mg/dL 8.4-10.2 L HEPATIC FUNCTION BXCXJ4593-89-03 02:23:00* Test Item Value Reference Range Interpretation [...] ALKP) 104 U/L 38-126 N HCG SERUM [id number] 02:10:00* Test Item Value Reference Range Interpretation [...] 3,000-50,000 MIU/ML3RD TRIMESTER 1,000- 50,000 MIU/ML LACTIC [id number] 02:07:00* Test Item Value Reference Range Interpretation Comments LACTIC ACID (test code = LACT) 0.9 MMOL/L 0.4-1.9 N CBC W/AUTO [id number] 01:55:00* Test Item Value Reference Range Interpretation [...] K/mm3 0.0-0.2 N - XR CHEST 1 [id number] 01:49:00 Name: SANTO RAJPUT [facility] : 1985 Age/S:34 /F [address] [facility] Unit#:[id number] Loc: [place] [address] Phys: Lucina Lima MD Dis Date: PHONE #: [phone] Status: PRE ER FAX #: [phone] Exam Date: 10/19/2019 Reason: COUGH EXAMS: CPT CODE: [id number] XR CHEST 1 V 96555 EXAM: - XR CHEST 1 V HISTORY: [...] (0149) SinaiMKM4 Orig Print D/T: S: 10/19/2019 (0158) PAGE 1 Signed Report SURGICAL SPECIMENS 2019-03-15 10:12:00 RUN DATE: 03/15/19 [facility] *LIVE* PAGE 1 RUN TIME: 1012 Specimen Inqui ry RUN USER: INTERFACE PATIENT: SANTO RAJPUT ACCT #: [id number] LOC: ALIS U #: [id number] AGE/SX: 33/F ROOM: [facility]03[facility]: Trini Miles : 87 BED: DIS: STATUS: [facility] TLOC: SPEC #: [id number] RECD: 03/13/19 STATUS: [facility] #: [id number] LAURA: 03/13/[address] [facility] DR: Trini Miles ENTERED: 03/14/19 SP TYPE: SURG SPEC OTHR DR: Livan Olea MD ORDERED: GM LEVEL 4 CODES: [id number] - PELVIS, NOS COPIES TO: Trini Roa MD [address] [place] [address] Jordon Olea MD [address] [facility] [place] [address] PROCEDURES: GM LEVEL 4 (Incomplete) [...] CONTINUED ON NEXT PAGE RUN DATE: 03/15/19 [facility] *LIVE* PAGE 2 RUN TIME: 1012 Specimen Inquiry RUN USER: INTERFACE SPEC #: [id number] :[id number] PATIENT: SANTO RAJPUT #[id number] (Continued)- PRE-OP DIAGNOSIS Pelvic pain Colt Richard ON FILE IaindelmaDelia barrera MD 03/15/19 1012 END OF REPORT BASIC METABOLIC [id number] 09:46:00* Test Item Value Reference Range Interpretation [...] CA) 9.0 mg/dL 8.0-10.5 N HCG SERUM [id number] 09:46:00* Test Item Value Reference Range Interpretation Comments HCG SERUM QUAL (test code = HCGQL) SERUM NEGATIVE NEGATIVE BASIC METABOLIC [id number] 09:42:00* Test Item Value Reference Range Interpretation [...] code = CA) mg/dL 8.0-10.5 HCG SERUM [id number] 09:42:00* Test Item Value Reference Range Interpretation Comments HCG SERUM QUAL (test code = HCGQL) SERUM NEGATIVE NEGATIVE PROTHROMBIN [id number] 09:39:00* Test Item Value Reference Range Interpretation [...] Infarction (to prevent recurrent infarct). THROMBOPLASTIN TIME [id number] 09:39:00* Test Item Value Reference Range Interpretation Comments THROMBOPLASTIN TIME PARTIAL (test code = PTT) 30.7 Seconds 25.0-39. 5 N Therapeutic Range: 50.4 - 88.3 Seconds Effective 10/23/2018 CBC W/AUTO [id number] 09:35:00* Test Item Value Reference Range Interpretation [...] REQUIRED (test code = MDIFF) NO URINALYSIS [id number] 09:35:00* Test Item Value Reference Range Interpretation [...] MUCU) 2+ /LPF NONE SEEN A Platelet Tpjrfuwy7747-30-03 06:51:00* Test Item Value Reference Range Interpretation Comments Platelet Estimate (test code = 15396-4) ADEQUATE [facility] McAllenPlatelet Morphology Wlbrwwx5001-03-18 06:51:00* Test Item Value Reference Range Interpretation Comments Platelet Morphology Comment (test code = 68777-0) NORMAL [facility] McAllenAnisocytosis2019-03-17 06:51:00* Test Item Value Reference Range Interpretation Comments Anisocytosis (test code = 702-1) SLIGHT [facility] McAllenCrenated Xlaf6251-63-26 06:51:00* Test Item Value Reference Range Interpretation Comments Crenated Cell (test code = 7790-9) SLIGHT [facility] McAllenRed Cell Morphology Xgoscdq3381-78-18 06:51:00* Test Item Value Reference Range Interpretation Comments Red Cell Morphology Comment (test code = 6742-1) NORMAL [facility] Centerodium Jcvud4609-93-42 06:05:00* Test Item Value Reference Range Interpretation Comments Sodium Level (test code = 2951-2) 137 136-145 [facility] McAllenPotassium Omdhd5277-31-83 06:05:00* Test Item Value Reference Range Interpretation Comments Potassium Level (test code = 2823-3) 3.6 3.5-5.1 [facility] McAllenChloride Cptxw7643-09-07 06:05:00* Test Item Value Reference Range Interpretation Comments Chloride Level (test code = 2075-0) 105 98-107 [facility] McAllenCarbon Dioxide Csrut6300-23-43 06:05:00* Test Item Value Reference Range Interpretation Comments Carbon Dioxide Level (test code = 2028-9) 25 22-29 [facility] McAllenAnion Jlj6545-55-87 06:05:00* Test Item Value Reference Range Interpretation Comments Anion Gap (test code = 20462-1) 10.6 8-16 [facility] McAllenBlood Urea Enfjihhp6031-77-15 06:05:00* Test Item Value Reference Range Interpretation Comments Blood Urea Nitrogen (test code = 3094-0) 15 7-26 [facility] McAllenCreatinine2019-03-17 06:05:00* Test Item Value Reference Range Interpretation Comments Creatinine (test code = 2160-0) 0.72 0.57-1.11 [facility] McAllenBUN/Creatinine Qmuif7163-41-20 06:05:00* Test Item Value Reference Range Interpretation Comments BUN/Creatinine Ratio (test code = 3097-3) 21 6-25 [facility] McAllenEstimat Glomerular Filtration Rate 2018-09-23 06:05:00* Test Item Value Reference Range Interpretation Comments Estimat Glomerular Filtration Rate (test code = 711629625) > 60 >60 Ranges were taken from the National Kidney Disease Education Program and the [facility] literature.Reference ranges:60 or greater: Rsygsj86-09 ( for 3 consecutive months): Chronic kidney disease 15 or less: Kidney failureSouth [facility] Health System McAllenGlucose Kyhnp0099-69-37 06:05:00* Test Item Value Reference Range Interpretation Comments Glucose Level (test code = BHG3061) 94 74-118 [facility] McAllenCalcium Yqmli9277-83-13 06:05:00* Test Item Value Reference Range Interpretation Comments Calcium Level (test code = 85796-8) 8.4 8.4-10.2 [facility] McAllenTotal Uxgpakvud8325-05-90 06:05:00* Test Item Value Reference Range Interpretation Comments Total Bilirubin (test code = 1975-2) 0.9 0.2-1.2 [facility] McAllenAspartate Amino Transf (AST/SGOT) 2018-09-23 06:05:00* Test Item Value Reference Range Interpretation Comments Aspartate Amino Transf (AST/SGOT) (test code = Aspartate Amino Transf (AST/SGOT)) 58 5-34 H [facility] McAllenAlanine Aminotransferase (ALT/SGPT) 2018-09-23 06:05:00* Test Item Value Reference Range Interpretation Comments Alanine Aminotransferase (ALT/SGPT) (test code = 1742-6) 34 0-55 [facility] McAllenTotal Hhubmcf9008-30-50 06:05:00* Test Item Value Reference Range Interpretation Comments Total Protein (test code = 2885-2) 6.7 6.5-8.1 [facility] McAllenAlbumin2019-03-17 06:05:00* Test Item Value Reference Range Interpretation Comments Albumin (test code = 1751-7) 3.6 3.5-5.0 [facility] McAllenGlobulin2019-03-17 06:05:00* Test Item Value Reference Range Interpretation Comments Globulin (test code = 22719-5) 3.1 2.3-3.5 [facility] McAllenAlbumin/Globulin Rqtzw6705-97-38 06:05:00 * Test Item Value Reference Range Interpretation Comments Albumin/Globulin Ratio (test code = 1759-0) 1.2 0.8-2.0 [facility] McAllenAlkaline Sgabqgarvnd0183-76-35 06:05:00* Test Item Value Reference Range Interpretation Comments Alkaline Phosphatase (test code = 6768-6) 34 40-150 L [facility] McAllenWhite Blood Chiqe2731-46-82 05:27:00* Test Item Value Reference Range Interpretation Comments White Blood Count (test code = 6690-2) 5.19 4.8-10.8 [facility] McAllenRed Blood Dixzo4011-48-61 05:27:00* Test Item Value Reference Range Interpretation Comments Red Blood Count (test code = 789-8) 2.48 3.6-5.1 L [facility] McAllenHemoglobin2019-03-17 05:27:00* Test Item Value Reference Range Interpretation Comments Hemoglobin (test code = 65224-4) 7.5 12.0-16.0 L [facility] McAllenHematocrit2019-03-17 05:27:00* Test Item Value Reference Range Interpretation Comments Hematocrit (test code = 4544-3) 22.3 34.2-44.1 L Results called to [] at 0525 on 09/23/18 by Rosario Mello. ELENI [place].[facility] McAllenMean Corpuscular Ytlyvn6488-71-77 05:27:00* Test Item Value Reference Range Interpretation Comments Mean Corpuscular Volume (test code = 787-2) 89.9 81-99 [facility] McAllenMean Corpuscular Pcxygndnda7507-90-74 05:27:00* Test Item Value Reference Range Interpretation Comments Mean Corpuscular Hemoglobin (test code = 785-6) 30.2 28-32 [facility] McAllenMean Corpuscular Hemoglobin Concent 2018-09-23 05:27:00* Test Item Value Reference Range Interpretation Comments Mean Corpuscular Hemoglobin Concent (test code = 786-4) 33.6 31-35 [facility] McAllenRed Cell Distribution Hqzpf1594-89-80 05:27:00* Test Item Value Reference Range Interpretation Comments Red Cell Distribution Width (test code = 21350-9) 26.6 11.7 -14.4 H [facility] McAllenPlatelet Aguhi9215-75-87 05:27:00* Test Item Value Reference Range Interpretation Comments Platelet Count (test code = 777-3) 144 140-360 [facility] McAllenNeutrophils (%) (Auto)2018-09-23 05:27:00 * Test Item Value Reference Range Interpretation Comments Neutrophils (%) (Auto) (test code = 81313-2) 41.5 38.7-80.0 [facility] McAllenLymphocytes (%) (Auto)2018-09-23 05:27:00 * Test Item Value Reference Range Interpretation Comments Lymphocytes (%) (Auto) (test code = 736-9) 51.8 18.0-39.1 H [facility] McAllenMonocytes (%) (Auto)2018-09-23 05:27:00* Test Item Value Reference Range Interpretation Comments Monocytes (%) (Auto) (test code = 5905-5) 4.0 4.4-11.3 L [facility] McAllenEosinophils (%) (Auto)2018-09-23 05:27:00 * Test Item Value Reference Range Interpretation Comments Eosinophils (%) (Auto) (test code = 713-8) 1.5 0.0-6.0 [facility] McAllenBasophils (%) (Auto)2018-09-23 05:27:00* Test Item Value Reference Range Interpretation Comments Basophils (%) (Auto) (test code = 706-2) 0.2 0.0-1.0 [facility] McAllenIM GRANULOCYTES %2018-09-23 05:27:00* Test Item Value Reference Range Interpretation Comments IM GRANULOCYTES % (test code = IM GRANULOCYTES %) 1.0 0.0- 1.0 [facility] McAllenNeutrophils # (Auto)2018-09-23 05:27:00* Test Item Value Reference Range Interpretation Comments Neutrophils # (Auto) (test code = 751-8) 2.2 2.1-6.9 [facility] McAllenLymphocytes # (Auto)2018-09-23 05:27:00* Test Item Value Reference Range Interpretation Comments Lymphocytes # (Auto) (test code = 44730-1) 2.7 1.0-3.2 [facility] McAllenMonocytes # (Auto)2018-09-23 05:27:00* Test Item Value Reference Range Interpretation Comments Monocytes # (Auto) (test code = 742-7) 0.2 0.2-0.8 [facility]AllenEosinophils # (Auto)2018-09-23 05:27:00* Test Item Value Reference Range Interpretation Comments Eosinophils # (Auto) (test code = 711-2) 0.1 0.0-0.4 [facility]AllenBasophils # (Auto)2018-09-23 05:27:00* Test Item Value Reference Range Interpretation Comments Basophils # (Auto) (test code = 704-7) 0.0 0.0-0.1 [facility] McAllenAbsolute Immature Granulocyte (auto 2018-09-23 05:27:00* Test Item Value Reference Range Interpretation Comments Absolute Immature Granulocyte (auto (peace t code = Absolute Immature Granulocyte (auto) 0.05 0-0.1 [facility] McAllenDifferential Total Cells Counted 2018-09-22 13:15:00* Test Item Value Reference Range Interpretation Comments Differential Total Cells Counted (test code = Differen tial Total Cells Counted) 100 [facility] McAllenNeutrophils % (Manual)2018-09-22 13:15:00 * Test Item Value Reference Range Interpretation Comments Neutrophils % (Manual) (test code = 29608-6) 70 40-74 [facility] McAllenLymphocytes % (Manual)2018-09-22 13:15:00 * Test Item Value Reference Range Interpretation Comments Lymphocytes % (Manual) (test code = 737-7) 23 19-48 [facility]AllenMonocytes % (Manual)2018-09-22 13:15:00* Test Item Value Reference Range Interpretation Comments Monocytes % (Manual) (test code = 744-3) 4 3.4-9.0 [facility]AllenEosinophils % (Manual)2018-09-22 13:15:00 * Test Item Value Reference Range Interpretation Comments Eosinophils % (Manual) (test code = 714-6) 1 0-7 [facility]AllenBasophils % (Manual)2018-09-22 13:15:00* Test Item Value Reference Range Interpretation Comments Basophils % (Manual) (test code = 93645-4) 2 0-1.5 H [facility] McAllenPoikilocytosis2019-03-16 13:15:00* Test Item Value Reference Range Interpretation Comments Poikilocytosis (test code = 779-9) MODERATE [facility] McAllenTear Drop Adywi8912-56-86 13:15:00* Test Item Value Reference Range Interpretation Comments Tear Drop Cells (test code = 7791-7) MODERATE [facility] McAllenElliptocytes2019-03-16 13:15:00* Test Item Value Reference Range Interpretation Comments Elliptocytes (test code = 12950-3) MODERATE [facility] Centerchistocytes2019-03-16 13:15:00* Test Item Value Reference Range Interpretation Comments Schistocytes (test code = 800-3) FEW [facility] McAllenTriglycerides Ytxsg3010-64-08 06:31:00* Test Item Value Reference Range Interpretation Comments Triglycerides Level (test code = 2571-8) 99 0-149 [facility] McAllenCholesterol Gjxlp4381-35-90 06:31:00* Test Item Value Reference Range Interpretation Comments Cholesterol Level (test code = 2093-3) 171 0-199 Less than 200 mg/dL Low Tnhk728 - 239 mg/dL Borderline Gsnw297 m g/dl and greater High Risk [facility] McAllenLDL Rjssbksayij7032-51-80 06:31:00* Test Item Value Reference Range Interpretation Comments LDL Cholesterol (test code = 2089-1) 107 60-130 [facility] McAllenHDL Vmtcxbvyuks2668-26-18 06:31:00* Test Item Value Reference Range Interpretation Comments HDL Cholesterol (test code = 2085-9) 44 40-60 [facility] McAllenCholesterol/HDL Kymnx0233-83-72 06:31:00 * Test Item Value Reference Range Interpretation Comments Cholesterol/HDL Ratio (test code = 9830-1) 3.9 3.0-3.6 H [facility] McAllenCreatine Kinase ZU8330-87-99 06:24:00* Test Item Value Reference Range Interpretation Comments Creatine Kinase MB (test code = 76281-3) 0.20 0-5.0 [facility] McAllenTroponin X9316-44-52 06:24:00* Test Item Value Reference Range Interpretation Comments Troponin I (test code = XQB3867) 0.002 0-0.300 [facility] McAllenCreatine Sgjtzl0618-14-68 06:09:00* Test Item Value Reference Range Interpretation Comments Creatine Kinase (test code = 2157-6) 28 29-168 L [facility]LVIS [id number] 17:07:00 [place] [address] Patient Name: SANTO RAJPUT MR #: [id number] : 1985 Age/Sex: 33/F Req #: [id number] Adm Physician: NICOLAS VILLA MD Ordered by: THEO CORRAL MD Report #: [id number] Location: [facility] Room/Bed: [facility] Procedure: [id number] CT/CT ABDOMEN/PELVIS W Exam Date: 09/21/18 Exam [...] 5:19 PM Dictated By: JAYCE NETTLES MD [facility] Signed By: JAYCE NETTLES MD on 09/21/181718 Transcribed By: LEVON on 09/21 COPY TO: THEO CORRAL MD Vprzzhzm9858-17-22 12:32:00* Test Item Value Reference Range Interpretation Comments Ferritin (test code = 2276-4) 166.20 4.63-204.00 [facility] Iron Binding Zfnedtlz9812-00-27 10:27:00* Test Item Value Reference Range Interpretation Comments Total Iron Binding Capacity (test code = 2500-7) 280 261-4 78 --- 09/21/18 0932 ---TIBC previously reported as: 281 ug/dL [facility]ferrin2019-03-15 09:59:00* Test Item Value Reference Range Interpretation Comments Transferrin (test code = 3034-6) 200 180-382 [facility] Thyroxine Tppjv1926-75-97 09:59:00* Test Item Value Reference Range Interpretation Comments Free Thyroxine Index (test code = 13633-2) 3.0353 1.4-3.8 [facility]Allen[facility]yroxine (T4)2018-09-21 09:59:00* Test Item Value Reference Range Interpretation Comments Thyroxine (T4) (test code = 3026-2) 10.42 4.5-10.9 Our current method for Total T4 is not recommended for use as the only marker fo r evaluating patients for thyroid disorders.[facility]Triiodothyronine (T3) Dvmvqi7023-98-60 09:59:00* Test Item Value Reference Range Interpretation Comments Triiodothyronine (T3) Uptake (test code = 3050-2) 29.13 22.5 -37.0 [facility]AllenThyroid Stimulating Hormone (TSH) 2018-09-21 09:59:00* Test Item Value Reference Range Interpretation Comments Thyroid Stimulating Hormone (TSH) (test code = 25539-8) 3.157 0.350-4.940 [facility]AllenVitamin B12 Cddxw5937-55-89 09:20:00* Test Item Value Reference Range Interpretation Comments Vitamin B12 Level (test code = 54347-9) 8 213-816 L [facility]Iron Oahzm2857-76-92 09:11:00* Test Item Value Reference Range Interpretation Comments Iron Level (test code = 2498-4) 124 50-170 [facility] Iron Mrdszabtei8401-34-77 09:11:00* Test Item Value Reference Range Interpretation Comments Percent Iron Saturation (test code = 2502-3) 44 15-50 [facility] Reticulocyte Eoteg7874-03-93 08:34:00* Test Item Value Reference Range Interpretation Comments Percent Reticulocyte Count (test code = 21929-0) 1.5 0.8-2 .2 [facility]AllenUrine HJP4089-41-41 02:32:00* Test Item Value Reference Range Interpretation Comments Urine WBC (test code = 5821-4) NONE 0-5 [facility] BUO5289-49-33 02:32:00* Test Item Value Reference Range Interpretation Comments Urine RBC (test code = 13973-2) NONE 0-5 [facility] Feagvenn6704-29-94 02:32:00* Test Item Value Reference Range Interpretation Comments Urine Bacteria (test code = 00818-9) FEW NONE [facility] Epithelial Ynelw5418-89-30 02:32:00 * Test Item Value Reference Range Interpretation Comments Urine Epithelial Cells (test code = 77020-9) NONE NONE [facility] McAllenNucleated Red Blood Brgyx4778-57-67 02:26:00* Test Item Value Reference Range Interpretation Comments Nucleated Red Blood Cells (test code = 76388-7) 1 [facility]AllenPolychromasia2019-03-15 02:26:00* Test Item Value Reference Range Interpretation Comments Polychromasia (test code = 60280-5) FEW [facility]AllenMicrocytosis2019-03-15 02:26:00* Test Item Value Reference Range Interpretation Comments Microcytosis (test code = 741-9) MODERATE [facility]AllenOvalocytes2019-03-15 02:26:00* Test Item Value Reference Range Interpretation Comments Ovalocytes (test code = 774-0) FEW [facility]Allen[facility] Cnkoy9167-21-91 02:17:00* Test Item Value Reference Range Interpretation Comments Urine Color (test code = 5778-6) YELLOW YELLOW [facility] Eqaipyz4066-70-96 02:17:00* Test Item Value Reference Range Interpretation Comments Urine Clarity (test code = 91951-8) CLEAR CLEAR [facility] Specific Txsxixd7759-29-00 02:17:00 * Test Item Value Reference Range Interpretation Comments Urine Specific [place] (test code = 5811-5) 1.020 1.010-1.02 5 [facility]Allen[facility] tJ7691-21-09 02:17:00* Test Item Value Reference Range Interpretation Comments Urine pH (test code = 56445-0) 6 5-7 [facility] Leukocyte Wachlzst2187-70-99 02:17:00* Test Item Value Reference Range Interpretation Comments Urine Leukocyte Esterase (test code = 5799-2) NEGATIVE NEGATIVE [facility] Wtdgpqz5340-37-49 02:17:00* Test Item Value Reference Range Interpretation Comments Urine Nitrite (test code = 56968-6) NEGATIVE NEGATIVE [facility] Ctjledw7899-14-33 02:17:00* Test Item Value Reference Range Interpretation Comments Urine Protein (test code = 5804-0) NEGATIVE NEGATIVE [facility] Glucose (UA)2018-09-21 02:17:00* Test Item Value Reference Range Interpretation Comments Urine Glucose (UA) (test code = 2349-9) NEGATIVE NEGATIVE [facility] Fefbjbd1277-20-39 02:17:00* Test Item Value Reference Range Interpretation Comments Urine Ketones (test code = 11503-6) NEGATIVE NEGATIVE [facility] Mwzfxraocnor7247-05-78 02:17:00* Test Item Value Reference Range Interpretation Comments Urine Urobilinogen (test code = 88289-7) 0.2 0.2-1 [facility] Yuwrbdljc3202-00-89 02:17:00* Test Item Value Reference Range Interpretation Comments Urine Bilirubin (test code = 1978-6) NEGATIVE NEGATIVE [facility] Ypqhy8703-01-38 02:17:00* Test Item Value Reference Range Interpretation Comments Urine Blood (test code = 65582-5) TRACE NEGATIVE H [facility] Epai5411-65-94 02:17:00* Test Item Value Reference Range Interpretation Comments Urine Test (test code = 2106-3) NEGATIVE NEGATIVE [facility] Children[facility] EPGWP7383-52-88 01:20:00 [facility] [address] [place] [address] Patient Name: SANTO RAJPUT MR #: [id number] : 1985 Age/Sex: 33/F Req #: [id number] Adm Physician: Ordered by: TSERING DE LEÓN MD Report #: [id number] Location: ER Room/Bed: Procedure: [id number] DX/CHEST 2 VIEWS Exam Date: 09/21/18 Exam [...] LEÓN MD CT CHEST W [place] [address] Patient Name: SANTO RAJPUT MR #: [id number] : 1985 Age/Sex: 32/F Req #: [id number] Adm Physician: Ordered by: DAYLIN LEÓN MD Report #: [id number] Location: ER Room/Bed: Procedure: [id number] CT/CT CHEST W Exam Date: 7 Exam [...] on 06/30/2017 9:12 PM Dictated By: LAYLA Borgesally Signed By: LAYLA BRISENO MD on 06/30/172111 Transcribed By: LEVON on 06/30/172111 COPY TO: DAYLIN LEÓN MD VENOUS DUPLEX LWR B/L [place] [address] Patient Name : SANTO RAJPUT MR #: [id number] : 1985 Age/Sex: 32/F Adm Physician : [...] lower extremity veins bilaterally. 10 :48 Job#: [id number] EV cc: DAYLIN LEÓN MD Signature Date Dictated By: GWYN ANDRADE MD Transcribed By: [facility] on 07/02/17 <Electronically signed by GWYN ANDRADE MD><<Signature on File> >07/04/17 0905 COPY TO:
[2020-05-28 18:04] LABS: BILIRUBIN,URINE NEGATIVE (NEGATIVE); CLARITY,URINE SL CLOUDY (CLEAR); COLOR,URINE STRAW (YELLOW); KETONES,URINE NEGATIVE (NEGATIVE); LEUKOCYTE ESTERASE ,URINE NEGATIVE (NEGATIVE); NITRITE,URINE NEGATIVE (NEGATIVE); PROTEIN,URINE DIPSTICK 1+ (NEGATIVE); URINE UROBILINOGEN 1 mg/dL (0.2 - 1)
[2020-05-28 18:09] LABS: BACTERIA,URINE FEW /HPF; EPITHELIAL CELLS,URINE MODERATE /LPF; MUCUS,URINE FEW (RARE); RBC,URINE 0-5 /HPF (0-5)
[2020-05-28] MEDS ORDERED: IOPAMIDOL 370 MG/ML 200 ML INFUS..BTL INJ ONE (18:41)
[2020-05-28] MEDS ORDERED: SODIUM CHLORIDE 0.9% 50ML 50 ML ONE (18:41)
[2020-05-28 20:00] VITALS: BP 118/63
[2020-05-28 21:07] LABS: MICROCYTOSIS SLIGHT; PLATELET ESTIMATE MODERATELY INCREASED; PLATELET MORPHOLOGY COMMENT NORMAL; RBC MORPHOLOGY COMMENT ABNORMAL
[2020-05-28] MEDS ORDERED: [UNRECOGNIZED DRUG - OTHER] (21:18)
[2020-05-28] MEDS ORDERED: PROTONIX20 MG PO (21:18)
[2020-05-28] MEDS ORDERED: NAPROXEN250 MG PO (21:18)
[2020-05-28] MEDS ORDERED: MECLIZINE HCL12.5 MG PO (21:18)
[2020-05-28] MEDS ORDERED: PROAIR HFA INH8.5 GM IH (21:18)
[2020-05-28] MEDS ORDERED: FOLIC ACID20 MG PO (21:18)
[2020-05-28] MEDS ORDERED: BENZONATATE100 MG PO (21:18)
[2020-05-28] MEDS ORDERED: ZOMIG5 M1 PO (21:18)
[2020-05-28] MEDS ORDERED: FUROSEMIDE40 MG PO (21:18)
[2020-05-28] MEDS ORDERED: ADVAIR HFA 115-12 GM (21:18)
[2020-05-28] MEDS ORDERED: CITALOPRAM HBR20 MG PO (21:18)
[2020-05-28] MEDS ORDERED: TIZANIDINE HCL4 M1 PO (21:18)
[2020-05-28] MEDS ORDERED: MULTI-VITAMIN1 EACH PF (21:19)
[2020-05-28] MEDS ORDERED: GARLIC1 EAC1 PO (21:19)
[2020-05-28] MEDS ORDERED: MELATONIN 5 MG TABLET PO PRN (21:45)
[2020-05-28 22:17] VITALS: BP 118/63
[2020-05-29] VITALS (8 sets, daily range): BP systolic 113–124; BP diastolic 59–68
[2020-05-29] MEDS ORDERED: POTASSIUM CHLORIDE 20 MEQ TAB CR PO PRN (00:15)
[2020-05-29] MEDS ORDERED: BENZONATATE 100 MG CAP PO PRN (00:15)
[2020-05-29] MEDS ORDERED: HYDROCODONE/APAP 5MG-325MG TAB PO PRN (00:15)
[2020-05-29] MEDS ORDERED: HYDRALAZINE HCL 20 MG/ML VIAL IV PRN (00:15)
[2020-05-29] MEDS ORDERED: DOCUSATE SODIUM 100 MG CAP PO PRN (00:15)
[2020-05-29] MEDS ORDERED: POLYETHYLENE GLYCOL 3350 17 GM PACK PO PRN (00:15)
[2020-05-29] MEDS ORDERED: ONDANSETRON HCL INJ 2MG/ML 2ML 2 MG/ML VIAL IV PRN (00:15)
[2020-05-29] MEDS ORDERED: ALBUTEROL/IPRATROPIUM 3 ML NEB NEB PRN (00:15)
[2020-05-29] MEDS ORDERED: DEXTROSE 50% SYRINGE 50 ML IV PRN (00:15)
[2020-05-29] MEDS ORDERED: MELATONIN 5 MG TABLET PO PRN (00:15)
[2020-05-29] MEDS: ACETAMINOPHEN 325 MG TAB PO PRN ×3 (00:18→20:10)
--- NOTE | 2020-05-29 01:31 | NUR ---
PT RESTING COMFORTABLY IN BED NO SIGNS OF DISTRESS NO COMPLAINTS AT THIS TIME
[2020-05-29] MEDS: CEFEPIME 1GM/NS 0.9% 50 ML 50 ML IV SCH ×3 (05:16→21:55)
[2020-05-29 05:43] LABS: BASOPHILS # (AUTO) 0.1 (0.0-0.1); BASOPHILS % 0.5 % (0.0-1.0); EOSINOPHILS % 6.6 % (0.0-6.0); HEMATOCRIT 25.8 % (34.2-44.1); HEMOGLOBIN 7.7 g/dL (12.0-16.0); LYMPHOCYTES # (AUTO) 1.2 (1.0-3.2); MEAN CORPUSCULAR HEMOGLOBIN 20.2 pg (28-32); MEAN CORPUSCULAR HGB CONC 29.8 g/dL (31-35); MEAN CORPUSCULAR VOLUME 67.5 fL (81-99); MONOCYTES # (AUTO) 1.3 (0.2-0.8); MONOCYTES % 8.6 % (4.4-11.3); NEUTROPHILS # (AUTO) 11.7 (2.1-6.9); NEUTROPHILS % 75.2 % (38.7-80.0); PLATELET COUNT 435 x10e3/uL (140-360); RED BLOOD COUNT 3.82 x10e6/uL (3.6-5.1); RED CELL DISTRIBUTION WIDTH 25.4 % (11.7-14.4)
[2020-05-29] MEDS ORDERED: CEFEPIME 1GM/NS 0.9% 50 ML 50 ML IV SCH (06:00)
[2020-05-29 06:12] LABS: ALANINE AMINOTRANSFERASE 10 IU/L (0-55); ALBUMIN 2.3 g/dL (3.5-5.0); ALBUMIN/GLOBULIN RATIO 0.5 (0.8-2.0); ALKALINE PHOSPHATASE 122 IU/L (40-150); ANION GAP 10.1 mmol/L (8-16); BLOOD UREA NITROGEN 10 mg/dL (7-26); BUN/CREATININE RATIO 15 (6-25); CALCIUM 7.8 mg/dL (8.4-10.2); CARBON DIOXIDE 25 mmol/L (22-29); CHLORIDE 100 mmol/L (98-107); CREATININE, SERUM 0.67 mg/dL (0.57-1.11); EST GLOMERULAR FILTRATION RATE > 60 ML/MIN (60-); GLUCOSE 93 mg/dL (74-118); POTASSIUM 4.1 mmol/L (3.5-5.1); SODIUM 131 mmol/L (136-145)
[2020-05-29 06:34] LABS: CHOL/HDL RATIO 10.8 (3.0-3.6)
[2020-05-29 07:25] LABS: FERRITIN 11855.6 ng/mL (4.63-204.00)
[2020-05-29] MEDS: PANTOPRAZOLE SOD 40 MG TABEC PO SCH (08:33)
--- NOTE | 2020-05-29 11:00 | NUR ---
aware of T 102.7 on 05/28/20
[2020-05-29] MEDS ORDERED: MECLIZINE HCL 12.5 MG TAB PO PRN (12:45)
[2020-05-29] MEDS: METOPROLOL TARTRATE 25 MG TAB PO SCH ×2 (13:14→17:58)
--- NOTE | 2020-05-29 13:33 | History and Physical ---
CHIEF COMPLAINT: Fevers, night sweats. HISTORY OF PRESENT ILLNESS: A 34-year-old female with no past medical history. 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 After further investigation, the patient reports she has been having subjective fevers for several months now. In fact, also reports having some night sweats as well and she reports she can remember as far back as October, even maybe September of this year with the night sweats. She never really thought much about it, thought that the fevers were just normal and seek some attention and was told she had pneumonia, was given some antibiotic therapy. She now reports with worsening fever for the last several weeks, came in for further evaluation and management. The patient is seen and evaluated at bedside on the medical floor. She is currently doing well with no other issues at this time. She denies any chest pain or any palpitations. No abdominal pain, diarrhea, cough, or any congestion. REVIEW OF SYSTEMS: Pertinent positives: Night sweats, fever. The rest of 14-point review of systems have been reviewed with the patient and are negative. ALLERGIES: TO PEANUTS. HOME MEDICATIONS: Albuterol, Tessalon Perles, she takes citalopram, Cymbalta, Advair, Lasix, gabapentin, meclizine, multivitamin, naproxen, Protonix, tizanidine, folic acid, loratadine, and sumatriptan. PAST MEDICAL HISTORY: Migraine headaches, anemia, anxiety, depression, and endometriosis. PAST SURGICAL HISTORY: Has a history of in the past. PAST FAMILY HISTORY: Hypertension and diabetes. SOCIAL HISTORY: No drugs. No alcohol. Does not smoke. Good social support. 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 PHYSICAL EXAMINATION: VITAL SIGNS: Temperature is 99.9, pulse is 123, respiratory rate is 22, blood pressure 116/60, and pulse ox is 95% on room air. GENERAL: Not in acute distress. Alert and oriented x3. Cooperative on examination. HEENT: Head; normocephalic, atraumatic. Eyes; pupils are equal, round, and reactive to light bilaterally. PULMONARY: Clear to auscultation bilaterally. No wheezing, no rales, no rhonchi, no crackles appreciated. CARDIOVASCULAR: Positive S1 and S2. No murmurs, rubs, or gallops appreciated. ABDOMEN: Soft, nondistended, and nontender to palpation. Bowel sounds present. MUSCULOSKELETAL: Strength is 5/5 throughout. No evidence of any muscle deficits on examination. SKIN: Intact. Warm to touch. Good cap refill. PSYCHIATRIC: Normal affect and mood. EXTREMITIES: No edema. Good range of motion throughout. LABORATORY DATA: Show white count was 15, hemoglobin 7.7, hematocrit 25, platelets of 435, MCV was 67.5. Urinalysis; 6-10 wbc's, mucous few. Serology; coronavirus not detected. Influenza was negative. MICROBIOLOGY: Blood cultures were no growth. IMAGING STUDIES: Chest x-ray negative. Chest CTA; confluent lymphadenopathy throughout the mediastinum, axillary regions, and partially visualized in upper abdomen is concerning for lymphoma. There is some mild splenomegaly. Multifocal patchy airspace opacities of the lung bases are concerning for multifocal pneumonia, consider atypical versus opportunistic process as well. Negative for PE or any secondary signs of right heart strain. IMPRESSION: 1. Fever, multifactorial, concerning for lymphoma and possibly underlying community-acquired pneumonia. 2. Probable community-acquired pneumonia. 3. Night sweats with fevers, concerns for lymphoma. 4. History of asthma. 5. Anxiety/depression. 6. Sinus tachycardia. PLAN: As for her lymphadenopathy noted on imaging studies, I did consult with Hematology/Oncology to come and evaluate the patient. I am concerned for underlying lymphoma. I did start her on IV antibiotic therapy with IV cefepime. Monitor blood cultures and ID was consulted. This could be also another form of opportunistic infection, which I will defer to Infectious Disease. Restart home medications. Restart Advair and DuoNeb p.r.n. Add low-dose metoprolol due to elevated heart rate. Lovenox for DVT prophylaxis. We will likely need a lymph node biopsy, which will likely occur once Hematology evaluated the patient. Encourage ambulation. Heart healthy diet. Consultants involved Hematology/Oncology and Infectious Disease. MD ONEL Walls/HERNANDEZ /[id number]
[2020-05-29 15:36] LABS: HIV 1&2 AB SCREEN NON-REACTIVE (NONREACTIVE)
[2020-05-29] MEDS ORDERED: SODIUM CHLORIDE 0.9% 50ML 50 ML ONE (16:40)
[2020-05-29] MEDS ORDERED: IOPAMIDOL 370 MG/ML 200 ML INFUS..BTL INJ ONE (16:41)
[2020-05-29] MEDS ORDERED: ENOXAPARIN SOD INJ 40 MG/0.4 ML SYR SC SCH (17:00)
[2020-05-29] MEDS: GABAPENTIN 400 MG CAP PO SCH ×2 (17:58→21:41)
[2020-05-29] MEDS: HYDROCODONE/APAP 5MG-325MG TAB PO PRN (18:35)
--- NOTE | 2020-05-29 19:15 | Consultation ---
DATE OF CONSULTATION: REASON FOR CONSULTATION: Fever. HISTORY OF PRESENT ILLNESS: This patient is very pleasant 34-year-old female with no past medical history has been sick for few months. She lost 50 pounds in the last 3 months. She has also has been having fever up to 101. Because of COVID-19, she was unable to see physician. The patient comes in because she almost passed out. She came here and she was admitted. PAST MEDICAL HISTORY: Denies. PAST SURGICAL HISTORY: Denies. ALLERGIES: NKA. SOCIAL HISTORY: She denies smoking, drug abuse, or alcohol abuse. She has two sexual partners in the last year or so. LABORATORY DATA: The patient was admitted. CAT scan showed AA lymphadenopathy throughout the mediastinum multifocal patchy airspace opacities concerning for pneumonia. Her laboratory data white count is 15, hemoglobin 6.8, and platelet 538. COVID-19 was negative . Her sodium 131, potassium 4.1, and glucose of 93. Protein 11,855. IMPRESSION: 1. Lymphadenopathy, fever. 2. Concern pneumonia, concern HIV. PLAN: Obtain HIV, obtain blood cultures, sputum cultures, Rocephin and azithromycin, she would need a biopsy and probably bronchoscopy. We will discuss with Internal Medicine. We will follow. MD JANNY Sol/MODL /[id number]
--- NOTE | 2020-05-29 20:00 | NUR ---
Pt. resting quietly. Skin is warm and dry to touch. Respirations are even and unlabored. Pt. has an 18 gauge IV saline lock to her L antecubital which is patent and intact. No redness or edema noted at site.
[2020-05-29] MEDS: SALMETEROL/FLUTICASONE 250/50 INH SCH (20:35)
[2020-05-30] VITALS (8 sets, daily range): BP systolic 98–110; BP diastolic 50–62
[2020-05-30] MEDS: ACETAMINOPHEN 325 MG TAB PO PRN ×2 (05:40→23:49)
[2020-05-30] MEDS: CEFEPIME 1GM/NS 0.9% 50 ML 50 ML IV SCH ×3 (05:42→21:24)
[2020-05-30] MEDS: SALMETEROL/FLUTICASONE 250/50 INH SCH ×2 (08:32→19:40)
[2020-05-30] MEDS: DULOXETINE HCL 30 MG DELAYED RELEASE PO SCH (09:15)
[2020-05-30] MEDS: CITALOPRAM HYDROBROMIDE 20 MG TAB PO SCH (09:15)
[2020-05-30] MEDS: PANTOPRAZOLE SOD 40 MG TABEC PO SCH (09:15)
[2020-05-30] MEDS: METOPROLOL TARTRATE 25 MG TAB PO SCH ×2 (09:15→17:53)
[2020-05-30] MEDS: GABAPENTIN 400 MG CAP PO SCH ×3 (09:15→21:24)
[2020-05-30] MEDS: IBUPROFEN 600 MG TAB PO PRN (12:24)
--- NOTE | 2020-05-30 13:41 | NUR ---
Nutrition Screen Note RD Recommendation for Physician: Continue diet as ordered Plan of Care: RD following, monitoring for tolerance and adequacy Nutrition reason for involvement: MST Primary Diagnose(s): pneumonia Ht:64 in Wt:205.56lbs BMI:35.3 kg/m2 IBW: 120lbs RD Assessment:(05/30/2020) Initial encounter with patient. Pt is reporting a good appetite. NKFA. Pt denies any difficulty chewing or swallowing. Pt denies any N,V,D Current Diet: Cardiac Malnutrition Evaluation (05/30/2020) The patient does not meet criteria for a specified degree of malnutrition at this time. Will re-evaluate at follow-up as appropriate. Diet Education Needs Assessment: Diet education not indicated. Diet Adequacy: Meeting calorie needs, Meeting protein needs, Meeting fluid needs Tolerance: Tolerating PO Nutrition Care Level: Stephan Casiano RD,LD,CNSC
--- NOTE | 2020-05-30 19:08 | Progress Note ---
DATE: 05/30/2020 Medicine Progress Note SUBJECTIVE: The patient is doing much better today. She still has a fever, T-max 101.7. She is eating well, much improved. Discussed case with General Surgery as well as Oncology. OBJECTIVE: VITAL SIGNS: Temperature is 97.9, T-max 101.7, pulse 96, respiratory rate is 18, blood pressure is 101/52, pulse ox 96% on room air. GENERAL: Not in acute distress, alert, oriented x3, cooperative on exam. HEENT: Head; normocephalic, atraumatic. Eyes; pupils are equal, round, and reactive to light bilaterally. Extraocular movements are intact bilaterally. Throat, no evidence of any erythema or exudates in the posterior pharynx. Has poor dentition. NECK: Supple. Good range of motion. PULMONARY: Clear to auscultation bilaterally. No wheezing, rales, or rhonchi. No crackles appreciated. CARDIOVASCULAR: Positive S1, S2. No murmurs, rubs, or gallops appreciated. ABDOMEN: Soft, nontender, nondistended to palpation. Bowel sounds are present. MUSCULOSKELETAL: Strength 5/5 throughout. No evidence of any muscle deficits on examination. SKIN: Intact. Warm to touch. Good cap refill. LABORATORY DATA: Show white count 15.5, hemoglobin 7.7, hematocrit 25, MCV 67, and platelets of 435. Chemistry; BNP noted. Iron saturation 7%, ferritin 11,855 noted. LDL was 74. TSH is 3.7. Urinalysis noted. Serology; coronavirus not detected and flu was negative. HIV negative. MICROBIOLOGY: Blood cultures were no growth to date. IMAGING STUDIES: CT abdomen and pelvis is pending. IMPRESSION: 1. Fever, multifactorial from underlying lymphoma and possible underlying community-acquired pneumonia. 2. Probable community-acquired pneumonia. 3. History of asthma. 4. Anxiety for slight depression. 5. Sinus tachycardia. PLAN: At this time, I spoke with General Surgery scheduled for excisional lymph node biopsy potentially on Monday. Continue follow with Hematology/Oncology. I also spoke with Hematology as well. I will go ahead and continue with IV antibiotics for now. She still has a low-grade fever. This is all likely secondary to lymphoma from malignancy. Continue with DuoNeb treatments. Heart rate better control. Lovenox for DVT prophylaxis. CONSULTANTS: ID, Hematology/Oncology and General Surgery. PLAN OF CARE: Discussed with the patient at bedside and she verbalized understanding. MD ONEL Walls/HERNANDEZ /[id number]
--- NOTE | 2020-05-30 20:09 | Diagnostic Imaging Report ---
EXAM: CT Abdomen and Pelvis WITH contrast INDICATION: ^lymphoma ^[id number] ^1640 ^Y COMPARISON: CT dated 09/21/2018.. TECHNIQUE: Abdomen and pelvis were scanned utilizing a multidetector helical scanner from the lung base to the pubic symphysis after administration of IV contrast. Coronal and sagittal reformations were obtained. Routine protocol was performed. Scan was performed when during portal venous phase. IV CONTRAST: 100 mL of Isovue 370 ORAL CONTRAST: None COMPLICATIONS: None FINDINGS: Limited study due to late arterial phase contrast bolus timing. LINES and TUBES: None. LOWER THORAX: Patchy opacities better appreciated on recent chest CT. HEPATOBILIARY: No focal hepatic lesions. No biliary ductal dilation. GALLBLADDER: No radio-opaque stones or sludge. No wall thickening. SPLEEN: Mild splenomegaly measuring up to 13.1 cm in maximal axial diameter. PANCREAS: No focal masses or ductal dilatation. ADRENALS: No adrenal nodules KIDNEYS/URETERS: Kidneys enhance symmetrically. No hydronephrosis. No cystic or solid mass lesions. No stones. GI TRACT: No abnormal distention, wall thickening, or evidence of bowel obstruction. Appendix is normal. PELVIC ORGANS/BLADDER: Unremarkable. LYMPH NODES: Mildly enlarged bilateral inguinal lymph nodes measuring up to 1.5 cm. Enlarged pelvic lymph nodes measuring up to 2.0 cm in short axis. Multiple enlarged lymph nodes at the splenic hilum measuring up to 1.7 cm. Para-aortic lymph nodes measuring up to 1.7 cm. Iliac chain lymph nodes measuring up to 1.6 cm. A few mildly enlarged mesenteric lymph nodes measuring up to 8 mm. VESSELS: Unremarkable. PERITONEUM / RETROPERITONEUM: No free air or fluid. BONES: Unremarkable. SOFT TISSUES: There is diffuse anarsarca. IMPRESSION: 1. Enlarged mesenteric, retroperitoneal, pelvic, and inguinal lymph nodes concerning for a lymphoproliferative disorder such as lymphoma. Mild splenomegaly. Consider follow-up with PET/CT. 2. Anasarca and small volume simple free fluid in the pelvis, may relate to volume status. Signed by: Paco Lozano MD on 05/30/2020 8:05 PM
[2020-05-31] MEDS: CEFEPIME 1GM/NS 0.9% 50 ML 50 ML IV SCH ×3 (05:05→21:00)
[2020-05-31 06:21] LABS: BASOPHILS # (AUTO) 0.1 (0.0-0.1); BASOPHILS % 0.6 % (0.0-1.0); EOSINOPHILS # (AUTO) 0.9 (0.0-0.4); EOSINOPHILS % 6.5 % (0.0-6.0); HEMATOCRIT 26.9 % (34.2-44.1); LYMPHOCYTES % 7.8 % (18.0-39.1); MEAN CORPUSCULAR HEMOGLOBIN 20.1 pg (28-32); MEAN CORPUSCULAR HGB CONC 29.7 g/dL (31-35); MEAN CORPUSCULAR VOLUME 67.4 fL (81-99); MONOCYTES # (AUTO) 0.9 (0.2-0.8); MONOCYTES % 7.1 % (4.4-11.3); NEUTROPHILS # (AUTO) 10.1 (2.1-6.9); NEUTROPHILS % 76.4 % (38.7-80.0); PLATELET COUNT 382 x10e3/uL (140-360); RED BLOOD COUNT 3.99 x10e6/uL (3.6-5.1); RED CELL DISTRIBUTION WIDTH 25.8 % (11.7-14.4); RETICULOCYTE % 0.5 % (0.8-2.2)
[2020-05-31 06:23] LABS: INR 1.26; PROTHROMBIN TIME 16.4 seconds (11.9-14.5)
[2020-05-31 06:30] LABS: ALANINE AMINOTRANSFERASE 11 IU/L (0-55); ALBUMIN 2.1 g/dL (3.5-5.0); ALBUMIN/GLOBULIN RATIO 0.4 (0.8-2.0); ALKALINE PHOSPHATASE 152 IU/L (40-150); ANION GAP 12.1 mmol/L (8-16); BLOOD UREA NITROGEN 12 mg/dL (7-26); BUN/CREATININE RATIO 17 (6-25); CALCIUM 7.8 mg/dL (8.4-10.2); CARBON DIOXIDE 21 mmol/L (22-29); CHLORIDE 101 mmol/L (98-107); CREATININE, SERUM 0.69 mg/dL (0.57-1.11); EST GLOMERULAR FILTRATION RATE > 60 ML/MIN (60-); GLUCOSE 89 mg/dL (74-118); POTASSIUM 4.1 mmol/L (3.5-5.1); SODIUM 130 mmol/L (136-145)
[2020-05-31] MEDS: SALMETEROL/FLUTICASONE 250/50 INH SCH ×2 (07:35→19:30)
[2020-05-31 07:48] VITALS: BP 100/55
[2020-05-31 08:00] VITALS: BP 107/68
[2020-05-31] MEDS: METOPROLOL TARTRATE 25 MG TAB PO SCH ×2 (09:00→16:25)
[2020-05-31] MEDS: PANTOPRAZOLE SOD 40 MG TABEC PO SCH (09:00)
[2020-05-31] MEDS: DULOXETINE HCL 30 MG DELAYED RELEASE PO SCH (09:00)
[2020-05-31] MEDS: CITALOPRAM HYDROBROMIDE 20 MG TAB PO SCH (09:00)
[2020-05-31] MEDS: GABAPENTIN 400 MG CAP PO SCH ×3 (09:00→21:00)
--- NOTE | 2020-05-31 10:37 | NUR ---
he patient is doing much better today. She still has a fever, T-max 101.7. She is eating well, much improved. Discussed case with General Surgery as well as Oncology. OBJECTIVE: VITAL SIGNS: Temperature is 97.9, T-max 101.7, pulse 96, respiratory rate is 18, blood pressure is 101/52, pulse ox 96% on room air. GENERAL: Not in acute distress, alert, oriented x3, cooperative on exam. HEENT: Head; normocephalic, atraumatic. Eyes; pupils are equal, round, and reactive to light bilaterally. Extraocular movements are intact bilaterally. Throat, no evidence of any erythema or exudates in the posterior pharynx. Has poor dentition. NECK: Supple. Good range of motion. PULMONARY: Clear to auscultation bilaterally. No wheezing, rales, or rhonchi. No crackles appreciated. CARDIOVASCULAR: Positive S1, S2. No murmurs, rubs, or gallops appreciated. ABDOMEN: Soft, nontender, nondistended to palpation. Bowel sounds are present. MUSCULOSKELETAL: Strength 5/5 throughout. No evidence of any muscle deficits on examination. SKIN: Intact. Warm to touch. Good cap refill. LABORATORY DATA: Show white count 15.5, hemoglobin 7.7, hematocrit 25, MCV 67, and platelets of 435. Chemistry; BNP noted. Iron saturation 7%, ferritin 11,855 noted. LDL was 74. TSH is 3.7. Urinalysis noted. Serology; coronavirus not detected and flu was negative. HIV negative. IMPRESSION: 1. Fever, multifactorial from underlying lymphoma and possible underlying community-acquired pneumonia. 2. Probable community-acquired pneumonia. 3. History of asthma. 4. Anxiety for slight depression. 5. Sinus tachycardia. [id number]
[2020-05-31 12:00] VITALS: BP 96/53
[2020-05-31] MEDS: HYDROCODONE/APAP 5MG-325MG TAB PO PRN (12:40)
--- NOTE | 2020-05-31 13:30 | Progress Note ---
DATE: SUBJECTIVE: Ms. Francis is feeling better. There are no new complaints. I was still waiting on the biopsy. REVIEW OF SYSTEMS: Otherwise unremarkable. PHYSICAL EXAMINATION: GENERAL: Currently alert, oriented. VITAL SIGNS: Stable, currently afebrile. HEENT: She is not icteric. NECK: Supple. CHEST: Clear. ABDOMEN: Soft. IMPRESSION: Lymphadenopathy, discussed with invasive radiology. The patient will need CT-guided biopsy. HIV is negative, concern like pneumonia versus malignancy. We will follow. MD JANNY Sol/HERNANDEZ /[id number]
[2020-05-31 16:00] VITALS: BP 100/54
[2020-05-31 20:00] VITALS: BP 91/39
[2020-05-31] MEDS: ACETAMINOPHEN 325 MG TAB PO PRN (21:01)
[2020-05-31 21:08] VITALS: BP 91/40
--- NOTE | 2020-05-31 23:03 | Progress Note ---
DATE: 05/31/2020 HISTORY: The patient is doing well today with no complaints. Still has low-grade temperature. PHYSICAL EXAMINATION: VITAL SIGNS: Temperature is 102.4, pulse 109, respiratory rate 17, blood pressure is 100/54, pulse ox 93% on room air. LABORATORY DATA: Labs show white count was 13, hemoglobin 8, hematocrit 26.9, MCV 67.4 and platelets was 382. Chemistry reviewed. Sodium 130, potassium 4.1, chloride 101, bicarb 21, anion gap of 12, BUN is 12, creatinine is 0.69, glucose is 89. TSH 3.7. HIV was nondetected. MICROBIOLOGY: Blood cultures no growth. IMAGING STUDIES: Nothing new. PHYSICAL EXAMINATION: GENERAL: No acute distress, alert and oriented x3. Cooperative on exam. PULMONARY: Clear to auscultation bilaterally. No wheezing, rales, or rhonchi. CARDIOVASCULAR: Positive S1, S2. No murmurs, rubs, or gallops. ABDOMEN: Soft, nondistended, nontender to palpation. Bowel sounds present. MUSCULOSKELETAL: Strength is 5/5 throughout. SKIN: Intact. Warm to touch. Good cap refill. IMPRESSION: 1. Fever, multifactorial likely concerning for underlying lymphoma and also underlying community-acquired pneumonia. 2. Probable community-acquired pneumonia. 3. History of asthma. 4. Anxiety/depression. 5. Sinus tachycardia. PLAN: 1. Patient is scheduled for a lymph node excisional biopsy tomorrow. She still has low-grade temperature. We will continue with IV antibiotics, Tylenol. Biopsy has been performed. We will give full doses of steroids. Lovenox for DVT prophylaxis. 2. Consultants: ID, Hematology Oncology, General Surgery. 3. Plan of care discussed with the patient at bedside. She verbalized understanding. MD ONEL Walls/HERNANDEZ /[id number]
[2020-06-01] VITALS (13 sets, daily range): BP systolic 83–105; BP diastolic 39–68
[2020-06-01 05:22] LABS: BASOPHILS # (AUTO) 0.1 (0.0-0.1); BASOPHILS % 0.5 % (0.0-1.0); EOSINOPHILS # (AUTO) 0.8 (0.0-0.4); EOSINOPHILS % 4.8 % (0.0-6.0); HEMATOCRIT 25.4 % (34.2-44.1); HEMOGLOBIN 7.5 g/dL (12.0-16.0); LYMPHOCYTES # (AUTO) 1.5 (1.0-3.2); LYMPHOCYTES % 8.9 % (18.0-39.1); MEAN CORPUSCULAR HEMOGLOBIN 20.2 pg (28-32); MEAN CORPUSCULAR HGB CONC 29.5 g/dL (31-35); MEAN CORPUSCULAR VOLUME 68.5 fL (81-99); MONOCYTES % 5.9 % (4.4-11.3); NEUTROPHILS # (AUTO) 13.2 (2.1-6.9); NEUTROPHILS % 78.4 % (38.7-80.0); PLATELET COUNT 358 x10e3/uL (140-360); RED BLOOD COUNT 3.71 x10e6/uL (3.6-5.1); RED CELL DISTRIBUTION WIDTH 25.8 % (11.7-14.4)
[2020-06-01] MEDS: CEFEPIME 1GM/NS 0.9% 50 ML 50 ML IV SCH ×3 (05:24→22:00)
[2020-06-01] MEDS: ACETAMINOPHEN 325 MG TAB PO PRN (05:24)
[2020-06-01 05:59] LABS: ALANINE AMINOTRANSFERASE 17 IU/L (0-55); ALBUMIN 2.2 g/dL (3.5-5.0); ALBUMIN/GLOBULIN RATIO 0.4 (0.8-2.0); ALKALINE PHOSPHATASE 387 IU/L (40-150); ANION GAP 13.6 mmol/L (8-16); BLOOD UREA NITROGEN 12 mg/dL (7-26); BUN/CREATININE RATIO 17 (6-25); CALCIUM 7.8 mg/dL (8.4-10.2); CARBON DIOXIDE 22 mmol/L (22-29); CHLORIDE 97 mmol/L (98-107); EST GLOMERULAR FILTRATION RATE > 60 ML/MIN (60-); GLUCOSE 85 mg/dL (74-118); POTASSIUM 4.6 mmol/L (3.5-5.1); SODIUM 128 mmol/L (136-145)
[2020-06-01] MEDS: SALMETEROL/FLUTICASONE 250/50 INH SCH ×2 (07:41→20:10)
[2020-06-01 08:10] LABS: HYPOCHROMASIA FEW; RBC MORPHOLOGY COMMENT ABNORMAL
[2020-06-01 08:11] LABS: MICROCYTOSIS MODERATE; PLATELET ESTIMATE ADEQUATE; PLATELET MORPHOLOGY COMMENT NORMAL
[2020-06-01] MEDS: METOPROLOL TARTRATE 25 MG TAB PO SCH ×2 (09:00→17:00)
[2020-06-01] MEDS: CITALOPRAM HYDROBROMIDE 20 MG TAB PO SCH (09:27)
[2020-06-01] MEDS: DULOXETINE HCL 30 MG DELAYED RELEASE PO SCH (09:27)
[2020-06-01] MEDS: PANTOPRAZOLE SOD 40 MG TABEC PO SCH (09:27)
[2020-06-01] MEDS: GABAPENTIN 400 MG CAP PO SCH ×3 (09:27→22:00)
[2020-06-01] MEDS: HYDROCODONE/APAP 5MG-325MG TAB PO PRN (09:29)
--- NOTE | 2020-06-01 11:00 | NUR ---
Neelam CHAUDHRY called regarding status of procedure today. Confirmed for today. Ordered to give 40mg Dexamethasone IV once after the procedure. Order read back and verified. Per Neelam, patient will begin PO prednisone starting tomorrow. Order for PO prednisone to be entered by provider.
[2020-06-01] MEDS ORDERED: MORPHINE SULFATE INJ 10 MG/ML ONE (11:56)
[2020-06-01] MEDS ORDERED: MIDAZOLAM HCL 2 MG/2 ML VIAL ONE (11:56)
[2020-06-01] MEDS ORDERED: FENTANYL CITRATE/PF 100MCG/2 ML INJ ONE (11:56)
[2020-06-01] MEDS ORDERED: SEVOFLURANE INHAL SOLN 250 ML PEN BTL ONE (12:39)
[2020-06-01] MEDS ORDERED: PROPOFOL IV EMULSION 10 MG/ML 20 ML VIAL ONE (12:39)
[2020-06-01] MEDS ORDERED: LIDOCAINE HCL 2% LOCAL INJ 5 ML SDV VIAL INJ ONE (12:39)
[2020-06-01] MEDS ORDERED: ONDANSETRON HCL INJ 2MG/ML 2ML 2 MG/ML VIAL ONE (12:39)
--- NOTE | 2020-06-01 13:20 | NUR ---
Sent to OR via stretcher. Telemetry box removed, kept in patients room. IV Cefepime started prior to pickup. Per OR nurse, remaining will be administered. Patient in stable condition.
[2020-06-01] MEDS ORDERED: BUPIVACAINE 0.25% 30ML SDV ONE (13:31)
[2020-06-01] MEDS ORDERED: IBUPROFEN 800MG/ 200ML 200 ML IV ONE (14:45)
[2020-06-01] MEDS ORDERED: ACETAMINOPHEN 1000 MG/100 ML 100 ML IV ONE (14:45)
--- NOTE | 2020-06-01 15:40 | Operative Report ---
DATE OF PROCEDURE: 06/01/2020 SURGEON: Antonio Victoria MD PREOPERATIVE DIAGNOSIS: Left axillary lymphadenopathy, rule out malignancy. POSTOPERATIVE DIAGNOSIS: Left axillary lymphadenopathy, rule out malignancy. OPERATION PERFORMED: Left axillary lymphadenectomy. LOCK TENDER: JUAN Mcdonald. ANESTHESIA: General. COMPLICATIONS: None. ESTIMATED BLOOD LOSS: Minimal. DESCRIPTION OF PROCEDURE: With the patient lying in bed in the supine position under good general anesthesia, the left chest and axilla were prepped with Betadine solution and draped in the usual manner. An incision was made at the base of the left axilla, carried down through the subcutaneous tissue and through the superficial fascia and immediately, a large number of lymph nodes were encountered, which were then slowly and carefully from the surrounding structures. All the attachments were ligated with 2-0 Vicryl and multiple lymph nodes were removed and sent for pathological examination. The whole area was thoroughly irrigated. Perfect hemostasis was ascertained. Superficial fascia was then reapproximated with interrupted sutures of 3-0 Vicryl. The subcutaneous tissue was approximated with 3-0 Vicryl and the skin was closed with subcuticular 5-0 Vicryl. Benzoin, Steri-Strips, and dressings were applied. The sponge, lap, and needle count was correct. The patient tolerated the procedure well and returned to the recovery room in stable condition. Antonio Victoria MD JLR/MODL /[id number]
[2020-06-01] MEDS ORDERED: DEXAMETHASONE PHOS 10MG INJ 40 MG in SODIUM CHLORIDE 0.9% 50ML 50 ML IV ONE (16:00)
[2020-06-01] MEDS ORDERED: DEXAMETHASONE SOD PHOS 10 MG/1 ML VIAL IV ONE (16:00)
[2020-06-01] MEDS ORDERED: ALBUMIN 25% 12.5GM 50ML 50 ML IV ONE (16:30)
[2020-06-01 16:36] LABS: HEMATOCRIT 28.4 % (34.2-44.1); HEMOGLOBIN 8.3 g/dL (12.0-16.0)
[2020-06-01] MEDS: MIDODRINE HCL 5 MG TABLET PO SCH (16:45)
[2020-06-01] MEDS ORDERED: SODIUM CHLORIDE 0.9% 1000ML 1,000 ML IV SCH (16:45)
[2020-06-01] MEDS ORDERED: ALBUTEROL/IPRATROPIUM 3 ML NEB ONE (16:47)
--- NOTE | 2020-06-01 17:02 | Diagnostic Imaging Report ---
X-ray chest frontal view History: Tachypnea Comparison: 05/28/2020 Findings: Lines and tubes: Not applicable Central airways: Unremarkable Cardiac silhouette: Unremarkable Great vessels: Unremarkable Mediastinal silhouettes: Unremarkable Pleura: No pleural effusion, pneumothorax or thickening Diaphragms: Unremarkable Lungs: Hypoinflated lungs because of poor respiratory effort. No definite focal lung disease. Skeletal structures: Unremarkable Extrathoracic soft tissues: Unremarkable Impression: No acute cardiopulmonary disease. No significant change compared with the previous exam. Signed by: Elio Almaraz MD on 06/01/2020 4:59 PM
--- NOTE | 2020-06-01 17:06 | NUR ---
INFECTIOUS DISEASE PROGRESS NOTE DR. PARKER JAUREGUI REASON FOR CONSULTATION: Fever. HISTORY OF PRESENT ILLNESS: This patient is very pleasant 34-year-old female with no past medical history has been sick for few months. She lost 50 pounds in the last 3 months. She has also has been having fever up to 101. Because of COVID-19, she was unable to see physician. The patient comes in because she almost passed out. ROS: +fatigue ALL 14 POINT ROS NEG UNLESS NOTED LABORATORY DATA: PER CHART PHYSICAL EXAM: OBJECTIVE: VITAL SIGNS: per chart GENERAL: Not in acute distress, alert, oriented x3, cooperative on exam. HEENT: Head; normocephalic, atraumatic. Eyes; pupils are equal, round, and reactive to light bilaterally. Extraocular movements are intact bilaterally. Throat, no evidence of any erythema or exudates in the posterior pharynx. Has poor dentition. NECK: Supple. Good range of motion. PULMONARY: Clear to auscultation bilaterally. No wheezing, rales, or rhonchi. No crackles appreciated. CARDIOVASCULAR: Positive S1, S2. No murmurs, rubs, or gallops appreciated. ABDOMEN: Soft, nontender, nondistended to palpation. Bowel sounds are present. MUSCULOSKELETAL: Strength 5/5 throughout. No evidence of any muscle deficits on examination. SKIN: Intact. Warm to touch. Good cap refill. IMPRESSION: Lymphadenopathy, fever. Multifocal PNA PLAN: tachynpea during biopsy today, pt transferred to ICU Flagyl added Continue Cefepime and Vanc 3LPM oxygen, no pressor support get repeat labs work-up pending Patricia Granger MSN, RECEIVING INSPECTOR, AGACNP- d/w Parker Jauregui M.D.
--- NOTE | 2020-06-01 18:19 | NUR ---
PATIENT TRANSFERRED FROM PACU VIA STRETCHER. PATIENT PREVIOUSLY IN ROOM 215 BUT TRANSFERRED TO ICU POST OP LEFT AXILLARY LYMPHADENECTOMY FOR RESPIRATORY OBSERVATION. POST OP TEMP 97.7 ORAL. 1 LITER NS BOLUS AND DECADRON IVPB INFUSING PER MD ORDER FOR HYPOTENSION. SPEECH/LANGUAGE THERAPIST REPORTED PATIENT HAD 1 VOID POST PROCEDURE. O2 PER NASAL CANULA AT 3L, RR 26. Addendum: 06/01/20 at 1828 by Lacy Stafford RN LEFT AXILLA DRESSING WITH FOAM TAPE IS DRY & INTACT
[2020-06-01 19:26] LABS: BASOPHILS # (AUTO) 0.2 (0.0-0.1); BASOPHILS % 0.6 % (0.0-1.0); EOSINOPHILS # (AUTO) 0.8 (0.0-0.4); EOSINOPHILS % 2.4 % (0.0-6.0); HEMATOCRIT 26.2 % (34.2-44.1); HEMOGLOBIN 7.5 g/dL (12.0-16.0); LYMPHOCYTES # (AUTO) 2.5 (1.0-3.2); LYMPHOCYTES % 7.9 % (18.0-39.1); MEAN CORPUSCULAR HGB CONC 28.6 g/dL (31-35); MEAN CORPUSCULAR VOLUME 69.9 fL (81-99); MONOCYTES # (AUTO) 1.4 (0.2-0.8); MONOCYTES % 4.4 % (4.4-11.3); NEUTROPHILS # (AUTO) 26.3 (2.1-6.9); NEUTROPHILS % 82.2 % (38.7-80.0); PLATELET COUNT 354 x10e3/uL (140-360); RED BLOOD COUNT 3.75 x10e6/uL (3.6-5.1); RED CELL DISTRIBUTION WIDTH 26.5 % (11.7-14.4)
[2020-06-01 19:39] LABS: ANION GAP 14.4 mmol/L (8-16); BLOOD UREA NITROGEN 12 mg/dL (7-26); BUN/CREATININE RATIO 12 (6-25); CALCIUM 7.8 mg/dL (8.4-10.2); CARBON DIOXIDE 21 mmol/L (22-29); CHLORIDE 100 mmol/L (98-107); CREATININE, SERUM 0.97 mg/dL (0.57-1.11); EST GLOMERULAR FILTRATION RATE > 60 ML/MIN (60-); GLUCOSE 89 mg/dL (74-118); POTASSIUM 4.4 mmol/L (3.5-5.1); SODIUM 131 mmol/L (136-145)
[2020-06-01] MEDS ORDERED: VANCOMYCIN 1GM/NS 250 ML 250 ML IV SCH ×2 (20:00→21:00)
--- NOTE | 2020-06-01 20:01 | NUR ---
Patient's mother called for pt update (mother stated she was her emergency contact), patient states she does not want us to give her mother any information. Patient was asked if there was any family that we could call in case of emergency, and she stated that there was no one she wanted us to talk to.
[2020-06-01] MEDS ORDERED: VANCOMYCIN HCL 1.5 GM in SODIUM CHLORIDE 0.9% 250ML 300 ML IV SCH (21:00)
[2020-06-01] MEDS ORDERED: VANCOMYCIN 1GM/NS 250 ML 500 ML ONE (21:14)
--- NOTE | 2020-06-01 21:18 | NUR ---
Patient is unable to tell me the year or her year at this time. Patient stuttering when speaking and repeating phrases. No other neurological deficits at this time. Dr. Sosa notified at this time and received orders for STAT brain CT w/o contrast and to consult Dr. Del Toro.
[2020-06-01] MEDS: METRONIDAZOLE 500MG/NS 100ML 100 ML IV SCH (22:00)
--- NOTE | 2020-06-01 22:08 | Diagnostic Imaging Report ---
Exam: Head CT without contrast History: Altered mental status Comparison studies: None Technique: Axial images were obtained from the skull base to the vertex. Coronal and sagittal images reconstructed from the axial data. Dose modulation, iterative reconstruction, and/or weight based adjustment of the mA/kV was utilized to reduce the radiation dose to as low as reasonably achievable. Radiation dose: Total DLP: 921.4 mGy*cm. Estimated effective dose: DLP x 0.015 Intravenous contrast: None Findings: Scalp: No abnormalities. Bones: No fractures, blastic or lytic lesions. Brain sulci: Appropriate for age. Ventricles: Normal in size and configuration. No hydrocephalus. Extra-axial spaces: No masses, no fluid collection. Parenchyma: No abnormal densities. No masses, hemorrhage, acute or chronic vascular insults. Sellar/suprasellar region: No abnormalities. Craniocervical junction: Patent foramen magnum. No Chiari one malformation. Included paranasal sinuses: Clear. Middle ear cavities and mastoids: Clear. IMPRESSION: No acute abnormalities. Signed by: Dr. Henry Norwood M.D. on 06/01/2020 10:05 PM
[2020-06-02] VITALS (24 sets, daily range): BP systolic 92–117; BP diastolic 40–79
--- NOTE | 2020-06-02 00:32 | Progress Note ---
DATE: 06/01/2020 Medicine Progress Note SUBJECTIVE: The patient is seen and evaluated approximately 11:00 a.m., this morning. She is doing well, scheduled to have lymph node excisional biopsy, performed by General Surgery. The patient was stable when I evaluated her. OBJECTIVE: VITAL SIGNS: Temperature was 98.8 and T-max is 101.5, pulse is 104, respiratory rate is 18, blood pressure was 97/45 when I evaluated her. LABORATORY DATA: Show white count 16.8, hemoglobin 7.5, hematocrit 25, MCV 68, platelets of 358. Coagulation; PT 16, INR 1.26. Chemistry; sodium was 128, potassium 4.6, chloride 97, bicarb 22, anion gap of 13, BUN is 12 and creatinine 0.7, glucose is 85. Microbiology, no growth to date. Several serologies performed so far, no growth to date. IMAGING: None. PHYSICAL EXAMINATION: GENERAL: Not in acute distress. Alert and oriented x3. Cooperative on examination. PULMONARY: Clear to auscultation bilaterally. No wheezing, rales, or rhonchi. No crackles appreciated. CARDIOVASCULAR: Positive S1, S2. No murmurs, rubs, or gallops appreciated. ABDOMEN: Soft and nontender to palpation. Bowel sounds present. MUSCULOSKELETAL: Strength 5/5 throughout. No evidence of muscle deficits on examination. SKIN: Intact. Warm to touch. Good cap refill. PSYCHIATRIC: Normal affect and mood. EXTREMITIES: No edema. Good range of motion throughout. IMPRESSION: 1. Fever, multifactorial, likely secondary to underlying lymphoma. 2. Community-acquired pneumonia. 3. History of asthma. 4. Anxiety, depression. 5. Sinus tachycardia-resolved. PLAN: At this time, the patient is scheduled for excisional lymph node biopsy later this afternoon with General Surgery. Continue with antibiotics, Tylenol. Full-dose steroids after biopsy has been performed. Lovenox for DVT prophylaxis. Plan of care discussed with patient, nursing staff. Consultants: ID, Hematology-Oncology, and General Surgery. Later in the day after surgery, the patient was hypotensive and was very tachypneic. Stat chest x-ray performed, found to be negative, but shows evidence of pulmonary atelectasis. She was found to be hypotensive, requiring several L of normal saline boluses as well as albumin. I have transferred the patient to the ICU. Pulmonary Critical Care has been consulted. Later in the day and evening, the patient was complaining of some stuttering. CT brain was performed, found to be negative. Blood pressure seems to be much more stable. We will stop oral metoprolol. She was given normal saline boluses, initiated on oral midodrine t.i.d. Plan of care discussed with General surgeon as well. I did consult with Neurology and Pulmonary Critical Care for further assist and care. Otherwise, the patient is very stable at this current moment when I spoke to the nursing staff. She will monitor very closely myself or was provided to the nursing staff to give me a call at any time in the night or any time in the day. MD ONEL Walls/HERNANDEZ /[id number]
[2020-06-02] MEDS: METRONIDAZOLE 500MG/NS 100ML 100 ML IV SCH (05:34)
[2020-06-02] MEDS: CEFEPIME 1GM/NS 0.9% 50 ML 50 ML IV SCH (05:34)
[2020-06-02] MEDS: SALMETEROL/FLUTICASONE 250/50 INH SCH ×2 (07:00→19:00)
--- NOTE | 2020-06-02 07:53 | NUR ---
PATIENT ATTEMPTED TO GET OUT OF BED WITHOUT CALLING FOR HELP. PATIENT UNABLE TO ANSWER QUESTIONS APPROPRIATELY. APPEARS DISORIENTED. O2 PER NC AT 3L. PATIENT O2 SATS DROP TO 85% WITHOUT OXYGEN. PATIENT BREATHING SHALLOW BREATHS. INSTRUCTED PATIENT TO TAKE DEEP BREATHS. ASSISTED PATIENT TO TOILET THEN SITTING UP IN RECLINER.
[2020-06-02 07:54] LABS: BASOPHILS # (AUTO) 0.2 (0.0-0.1); BASOPHILS % 0.5 % (0.0-1.0); HEMATOCRIT 33.8 % (34.2-44.1); HEMOGLOBIN 9.6 g/dL (12.0-16.0); LYMPHOCYTES # (AUTO) 1.8 (1.0-3.2); LYMPHOCYTES % 4.5 % (18.0-39.1); MEAN CORPUSCULAR HEMOGLOBIN 19.8 pg (28-32); MEAN CORPUSCULAR HGB CONC 28.4 g/dL (31-35); MEAN CORPUSCULAR VOLUME 69.7 fL (81-99); MONOCYTES # (AUTO) 0.4 (0.2-0.8); MONOCYTES % 0.9 % (4.4-11.3); NEUTROPHILS # (AUTO) 37.2 (2.1-6.9); NEUTROPHILS % 91.5 % (38.7-80.0); PLATELET COUNT 466 x10e3/uL (140-360); RED BLOOD COUNT 4.85 x10e6/uL (3.6-5.1)
[2020-06-02] MEDS: CITALOPRAM HYDROBROMIDE 20 MG TAB PO SCH (08:11)
[2020-06-02] MEDS: PANTOPRAZOLE SOD 40 MG TABEC PO SCH (08:11)
[2020-06-02] MEDS: MIDODRINE HCL 5 MG TABLET PO SCH ×3 (08:11→16:50)
[2020-06-02] MEDS: DULOXETINE HCL 30 MG DELAYED RELEASE PO SCH (08:11)
[2020-06-02 08:12] LABS: ANION GAP 16.2 mmol/L (8-16); BLOOD UREA NITROGEN 20 mg/dL (7-26); BUN/CREATININE RATIO 18 (6-25); CALCIUM 8.2 mg/dL (8.4-10.2); CARBON DIOXIDE 20 mmol/L (22-29); CHLORIDE 102 mmol/L (98-107); CREATININE, SERUM 1.12 mg/dL (0.57-1.11); EST GLOMERULAR FILTRATION RATE > 60 ML/MIN (60-); GLUCOSE 124 mg/dL (74-118); POTASSIUM 5.2 mmol/L (3.5-5.1); SODIUM 133 mmol/L (136-145)
[2020-06-02] MEDS: GABAPENTIN 400 MG CAP PO SCH ×3 (08:20→20:48)
--- NOTE | 2020-06-02 08:25 | NUR ---
INFECTIOUS DISEASE PROGRESS NOTE his patient is very pleasant 34-year-old female with no past medical history has been sick for few months. She lost 50 pounds in the last 3 months. She has also has been having fever up to 101. Because of COVID-19, she was unable to see physician. The patient comes in because she almost passed out. ROS: +fatigue ALL 14 POINT ROS NEG UNLESS NOTED LABORATORY DATA: PER CHART PHYSICAL EXAM: OBJECTIVE: VITAL SIGNS: per chart GENERAL: Not in acute distress, alert, oriented x3, cooperative on exam. HEENT: Head; normocephalic, atraumatic. Eyes; pupils are equal, round, and reactive to light bilaterally. Extraocular movements are intact bilaterally. Throat, no evidence of any erythema or exudates in the posterior pharynx. Has poor dentition. NECK: Supple. Good range of motion. PULMONARY: Clear to auscultation bilaterally. No wheezing, rales, or rhonchi. No crackles appreciated. CARDIOVASCULAR: Positive S1, S2. No murmurs, rubs, or gallops appreciated. ABDOMEN: Soft, nontender, nondistended to palpation. Bowel sounds are present. MUSCULOSKELETAL: Strength 5/5 throughout. No evidence of any muscle deficits on examination. SKIN: Intact. Warm to touch. Good cap refill. IMPRESSION: Lymphadenopathy, fever. Multifocal PNA
--- NOTE | 2020-06-02 08:44 | Consultation ---
DATE OF CONSULTATION: Pulmonary Critical Care Consultation CHIEF COMPLAINT: Low blood pressure, pneumonia and probable lymphoma. HISTORY OF PRESENT ILLNESS: The patient is a 34-year-old woman. She has a history of intermittent fever for months. She also has some night sweats. She came to the hospital with worsening fevers and some dyspnea. A CT scan showed extensive mediastinal adenopathy suggestive of lymphoma. She also had infiltrates suggestive of pneumonia. The patient was seen by Oncology as well as Infectious Disease. She was started on appropriate antibiotics. She subsequently had an axillary lymph node biopsy performed by General Surgery. Postoperatively, she had some hypotension. She required 2 L of fluid. The patient also received some Decadron yesterday for her lymphoma. She has some increased confusion this morning. PAST MEDICAL HISTORY: 1. Migraine headaches. 2. Anemia. PAST SURGICAL HISTORY: 1. Status post . 2. Status post axillary lymph node biopsy. FAMILY HISTORY: Hypertension and diabetes. ALLERGIES: NO KNOWN DRUG ALLERGIES. REVIEW OF SYSTEMS: The patient has some confusion. There is no headache. She does have some fevers. She has no night sweats. She has no chest pain. She is not having any hemoptysis. She does have some cough and some dyspnea. She has some abdominal pain. She has no nausea or vomiting. She has no leg edema. PHYSICAL EXAMINATION: VITAL SIGNS: The blood pressure is 100/61, saturation is 96% on 3 L and respiratory rate is 33. HEENT: Shows no facial swelling or erythema. LYMPHATIC: Shows no submandibular, cervical, or supraclavicular adenopathy. There is some axillary adenopathy. CARDIAC: Reveals regular rate and rhythm with normal S1 and S2. LUNGS: Auscultation of lungs shows decreased breath sounds at the bases. ABDOMEN: Soft, nontender. There is no rebound or guarding. EXTREMITIES: Shows no leg edema or calf tenderness. There is no cyanosis or clubbing. SKIN: Shows no rashes. NEUROLOGICAL: Shows no focal abnormalities. LABORATORY DATA: The BUN to creatinine ratio is 12 to 0.97. Sodium is 131, and carbon dioxide is 21. Albumin is 2.2. White blood cell count is 40.7 and hemoglobin is 9.6. The platelet count is 466. RADIOGRAPHIC DATA: CT scan of the abdomen and pelvis shows a large mesenteric retroperitoneal and pelvic and inguinal nodes concerning for possible lymphoma. Head CT shows no active disease. CT scan of the chest shows lymphadenopathy throughout the mediastinum, axillary regions, and upper abdomen. She also had splenomegaly and some patchy airspace disease at the lung bases. LABORATORY DATA: White blood cell count is 40.7, hemoglobin is 9.6, and the platelet count is 466. The BUN to creatinine ratio is normal. The other electrolytes are within normal limits. Albumin is 2.2. IMPRESSION: 1. Fever, probable pneumonia and sepsis. 2. Mediastinal adenopathy, probably suggestive of lymphoma. 3. Prior history of asthma. 4. Anemia secondary to chronic blood loss. 5. Hyponatremia. PLAN: 1. Continue IV fluids as needed. 2. Await culture results and continue antibiotics. 3. Await pathology results from lymph node biopsy. 4. Monitor mental status. 5. Out of bed as tolerated. Praveen Sol MD [facility]/MODL /[id number]
[2020-06-02] MEDS ORDERED: MICAFUNGIN SODIUM 100 MG in MICAFUNGIN SODIUM 100 ML IV SCH (08:45)
[2020-06-02] MEDS ORDERED: GADOBENATE DIMEGLUMINE 1 ML IV ONE (08:49)
--- NOTE | 2020-06-02 09:00 | NUR ---
PATIENT PULLED OUT HER PIV. 2 NEW PIV DOUGIE AC FOR MRI
--- NOTE | 2020-06-02 09:58 | Progress Note ---
DATE: SUBJECTIVE: Ms. Francis is little confused today. She has no new complaints. PHYSICAL EXAMINATION: GENERAL: She is currently alert. Does not seem to be in acute distress. VITAL SIGNS: Stable, currently afebrile. HEENT: She is not icteric. NECK: Supple. CHEST: Few crackles. HEART: S1 and S2. ABDOMEN: Soft. Bowel sounds present. EXTREMITIES: No edema. LABORATORY DATA: Her white count jumped up to 40.6, hemoglobin 9.6. All of her cultures are negative. Her sodium 133. Her creatinine 1.12. IMPRESSION: Leukocytosis. It could be drug related. She also received a dose of dexamethasone. She also had surgery recently for lymph node biopsy. Recommend to discontinue antibiotic. Recheck CBC. Recheck chem panel. Check CBC with diff. Pathology is still pending. We are still concerned about lymphoma in this patient. We will follow. Discussed with the medical team. MD JANNY Sol/HERNANDEZ /[id number]
--- NOTE | 2020-06-02 10:00 | NUR ---
PATIENT PULLED OUT LEFT AC PIV
[2020-06-02 10:41] LABS: ANISOCYTOSIS MARKED; LYMPHOCYTES % (MANUAL) 2 % (19-48); MONOCYTES % (MANUAL) 1 % (3.4-9.0); NEUTROPHILS % (MANUAL) 97 % (40-74); PLATELET ESTIMATE SLIGHTLY INCREASED; PLATELET MORPHOLOGY COMMENT NORMAL
[2020-06-02 10:42] LABS: MICROCYTOSIS SLIGHT
[2020-06-02 10:43] LABS: BURR CELLS SLIGHT; HELMET CELLS SLIGHT
[2020-06-02 10:44] LABS: RBC MORPHOLOGY COMMENT ABNORMAL
--- NOTE | 2020-06-02 11:40 | Progress Note ---
DATE: 06/02/2020 SUBJECTIVE: The patient overnight seems to have gotten confused. I ordered a stat CT brain when I spoke to the nurse last night, it was found to be normal. She is still kind of hypotensive, but looking at her trends, blood pressure seems to be in the low 100s. I interviewed her right now, she seems to be able to answer one question. She is awake, alert, but very disoriented. I spoke with the patient's mother, Danielle Sosa and she told me that most of her children gets very confused after anesthesia. It seems anesthesia may be playing a role in her underlying confusion at this current moment. OBJECTIVE: VITAL SIGNS: Temperature is 96.7, pulse 102, respiratory rate is 27, blood pressure right now on the monitor is 110/56, heart rate is actually 90, and respiratory rate is 30. She seems very comfortable. She is on 3 L nasal cannula. GENERAL: Alert, awake, and oriented x1 only. She is able to answer with one word at a time but seems to be confused days. PULMONARY: Clear to auscultation bilaterally. No wheezing, rales, or rhonchi. No crackles appreciated. CARDIOVASCULAR: Positive S1 and S2. No murmurs, rubs, or gallops. GI: Abdomen soft. Nondistended and nontender to palpation. Bowel sounds present. MUSCULOSKELETAL: Strength 5/5 appreciated. NEUROLOGIC: She is confused on exam. She is alert, awake, and oriented x1. SKIN: Intact. Warm to touch. Good cap refill. PSYCHIATRIC: She is very confused. LABORATORY DATA: White count was elevated to 40, hemoglobin 9.6, hematocrit is 33, and platelets of 466. Coagulation PT 16, INR 1.26. Chemistry; sodium 133, potassium 5.3, chloride 102, bicarb 20, anion gap of 16, BUN 20, creatinine 1.1, glucose is 124, uric acid 6.4, and calcium is 8.2. There are several immunology studies, ADAMARIS, c-ANCA, p-ANCA is pending. Serologies; coronavirus not detected. EBV is all pending. HIV negative. Influenza was negative. Toxoplasmosis and mycoplasma are pending. MICROBIOLOGY: Blood cultures are no growth. IMAGING STUDIES: Stat CT brain from last night was found to be negative. Stat MRI of the brain with and without contrast is pending. IMPRESSION: 1. Metabolic encephalopathy could be secondary to anesthesia versus high doses of steroids. 2. Fever, multifactorial seems to be secondary to lymphoma and possible underlying infection. 3. Community-acquired pneumonia. 4. History of asthma. 5. Anxiety, depression. 6. Sinus tachycardia-resolved. PLAN: At this time for her metabolic encephalopathy, I ordered a stat CT brain last night without contrast, which was found to be negative. I now ordered a stat MRI of the brain with and without contrast. I also ordered a Neurology consultation as well. I spoke with ID about the white count including hematology. At this time, we will defer antibiotic therapy to Infectious Disease. Several serologies have been ordered as well. I spoke to hematology oncology is ordering a stat peripheral smear is well and concerning to elevated white count. I will go ahead and order a repeat labs later this afternoon to see what her white count is. I am not sure if the patient needs an LP, but we will see what the MRI shows. Her blood pressure seems to be much better. We will continue with oral midodrine t.i.d. for now. Pulmonary Critical Care was consulted while the patient is in the ICU, which I appreciate everyone's recommendations on this case. I spoke with the patient's mother, Danielle Sosa, phone #[phone], and I updated her about her daughter. In fact, the patient's daughter did not want us to tell her mom about any of her medical issues, but this was before she was altered, now she is altered and in the event I need any kind of procedures or any kind of orders verbally, I had a talk to the mother, about her daughter's current situation. I interviewed Ms. Francis right before I talked to Ms. Sosa and she is only alert and oriented x1. At this time, based on the medical need and emergency contact, I did speak to Ms. Sosa. I updated about lab findings, imaging studies and overall plan of care and our thought process at the current moment. She agrees with the plan of care. She understands what is going on with her daughter. I also spoke with the nursing staff about our conversation that we had with Ms Sosa. In the event of any emergency issues, we will contact Ms. Sosa until Ms. Francis is much more alert, awake, and oriented on examination. At this time, we will go ahead and order a stat PICC line as well as she has a very hard access for any IVs. I will repeat labs this afternoon as well. Plan of care discussed with Ms. Sosa and nursing staff Lacy. We will await rest of the consultants recommendations. Appreciate recommendations by all consultants. MD ONEL Walls/HERNANDEZ /[id number]
--- NOTE | 2020-06-02 12:00 | NUR ---
PATIENT CONTINUES TO BE DISORIENTED. DR SERVIN SPOKE WITH MOTHER PRIYANKA CUNNINGHAM [phone], NEXT OF KIN. CONSENT FOR PICC LINE WITH ANOTHER RN WITNESS COMPLETED. MRI BRAIN DONE. PATIENT WAS RESTLESS AND COULD NOT BE STILL OR FOLLOW INSTRUCTIONS. VITAL SIGNS STABLE. AFEBRILE
--- NOTE | 2020-06-02 12:27 | Diagnostic Imaging Report ---
MRI BRAIN WO HISTORY: Altered mental status COMPARISON: Head CT 06/01/2020 TECHNIQUE: Sagittal T2, axial T2, multiplanar 3-D T1, axial T2/FLAIR, axial gradient echo (or susceptibility weighted), and axial diffusion weighted MR images of the brain were obtained without contrast. Motion artifacts obscure some details. DISCUSSION: Scalp/bone marrow: Unremarkable. Brain sulci: Appropriate for patient's age. Ventricles: Normal in size and configuration. No hydrocephalus. Extra-axial spaces: No masses or fluid collections. Parenchyma: No definite abnormal signal intensities. No mass, hemorrhage, or acute vascular insults. Vessels: Normal flow voids in major arteries and veins. Sellar/Suprasellar region: No gross abnormalities. Craniocervical junction: No abnormalities. Incidental findings: None. IMPRESSION: Limited exam due to motion artifacts. In spite of limitations: No acute intracranial abnormalities. Signed by: Dr. Brandon Cason M.D. on 06/02/2020 12:24 PM
--- NOTE | 2020-06-02 15:27 | NUR ---
EEG AT BEDSIDE
--- NOTE | 2020-06-02 17:20 | Diagnostic Imaging Report ---
EXAMINATION: CHEST XRAY LINE PLACEMENT INDICATION: ^NEW PICC LINE ^[id number] ^[id number] COMPARISON: Multiple prior chest x-ray examinations most recent dated 06/01/2020. FINDINGS: AP view TUBES and LINES: There is a right-sided PICC line in place with distal tip in SVC. . LUNGS/PLEURA: Multifocal patchy airspace opacities of the lung bases however slightly improved from prior exam suggestive of improving multifocal pneumonia. Consider atypical versus There is no pleural effusion or pneumothorax. HEART AND MEDIASTINUM: The cardiomediastinal silhouette is unremarkable. BONES AND SOFT TISSUES: No acute osseous lesion. Soft tissues are unremarkable. UPPER ABDOMEN: No free air under the diaphragm. IMPRESSION: Multifocal patchy airspace opacities of the lung bases however slightly improved from prior exam suggestive of improving multifocal pneumonia. PICC line in appropriate position. Signed by: Rudolph Mendiola MD on 06/02/2020 5:16 PM
[2020-06-02 17:54] LABS: BASOPHILS # (AUTO) 0.2 (0.0-0.1); BASOPHILS % 0.5 % (0.0-1.0); EOSINOPHILS % 0.1 % (0.0-6.0); HEMATOCRIT 28.2 % (34.2-44.1); HEMOGLOBIN 8.2 g/dL (12.0-16.0); LYMPHOCYTES % 4.7 % (18.0-39.1); MEAN CORPUSCULAR HGB CONC 29.1 g/dL (31-35); MEAN CORPUSCULAR VOLUME 68.9 fL (81-99); MONOCYTES # (AUTO) 1.5 (0.2-0.8); MONOCYTES % 3.5 % (4.4-11.3); NEUTROPHILS # (AUTO) 38.5 (2.1-6.9); NEUTROPHILS % 87.8 % (38.7-80.0); PLATELET COUNT 472 x10e3/uL (140-360); RED BLOOD COUNT 4.09 x10e6/uL (3.6-5.1); RED CELL DISTRIBUTION WIDTH 26.7 % (11.7-14.4)
[2020-06-02 18:24] LABS: ANION GAP 15.1 mmol/L (8-16); CALCIUM 8.1 mg/dL (8.4-10.2); CREATININE, SERUM 1.32 mg/dL (0.57-1.11); POTASSIUM 5.1 mmol/L (3.5-5.1)
[2020-06-02] MEDS ORDERED: LORAZEPAM INJ 2 MG/ML VIAL IV ONE (20:45)
--- NOTE | 2020-06-02 21:47 | Consultation ---
DATE OF CONSULTATION: 06/02/2020 HISTORY OF PRESENT ILLNESS: Ms. Beth Francis is a 34-year-old female, who for nonresponsive state or minimally responsive state. 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 She has subjective fevers and has . She reports that since October or September of this year. At this time, she is minimally responsive, but awake and alert despite being nonverbal. I was asked to evaluate her for the nonverbal state. She is not able to give review of systems, past medical and past surgical history. She did have a lymphadenectomy and she has become largely nonresponsive. CT scan of the brain was ordered to evaluate this nonverbal status. The CT scan of the brain showed no evidence of acute abnormalities both on the CT and MRI of the brain. PHYSICAL EXAMINATION: GENERAL: The patient is awake. She is alert. VITAL SIGNS: At this time show temperature of 96.5, heart rate of 91, blood pressure 111/68. HEENT: Her extraocular muscles are intact. She does look to examiner and follows some commands. Her face is symmetric. She has no ptosis. Pupils are reactive. There is no nuchal rigidity. CARDIOVASCULAR: Regular rate and rhythm. PULMONARY: Clear. ABDOMEN: Soft. Strength upper and lower extremities. She does not really follow commands. She does withdraw to noxious stimulation. Strength is 5/5 in uppers and lowers bilaterally but she does not squeeze hands or lift arms or legs to stay to command. There is no tremor. There is no increased rigidity or tone in uppers and lowers. Reflexes are symmetric. ASSESSMENT AND PLAN: The patient seems to have some degree of an akinetic mutism which suggests dopaminergic dysfunction. Overall, underlying etiology is not entirely clear, but there is definitely no focality to exam at this time despite her general inability to respond to commands. She does clearly understand verbal questions. She does follow some commands and she does this recurrently but she is not able to follow complex commands or she is not willing to follow simple commands commands and she seems to be desiring to do so. My concern right now is that she has a dopaminergic frontal dysfunction of unclear etiology and I will initiate therapy to treat that as we treat other underlying issues that are presenting in this case. I ordered an EEG. We are looking for subclinical seizures, which are low probability and I am going to start dopaminergic to see if we have some clinical improvement in her function. MD MAURY RODRIGUEZ/HERNANDEZ /[id number]
[2020-06-03] VITALS (26 sets, daily range): BP systolic 97–135; BP diastolic 54–98
[2020-06-03 04:14] LABS: BASOPHILS # (AUTO) 0.2 (0.0-0.1); BASOPHILS % 0.4 % (0.0-1.0); EOSINOPHILS % 0.1 % (0.0-6.0); HEMOGLOBIN 8.1 g/dL (12.0-16.0); LYMPHOCYTES # (AUTO) 1.8 (1.0-3.2); LYMPHOCYTES % 4.7 % (18.0-39.1); MEAN CORPUSCULAR HGB CONC 28.9 g/dL (31-35); MONOCYTES # (AUTO) 1.8 (0.2-0.8); MONOCYTES % 4.6 % (4.4-11.3); NEUTROPHILS # (AUTO) 33.8 (2.1-6.9); NEUTROPHILS % 87.1 % (38.7-80.0); PLATELET COUNT 507 x10e3/uL (140-360); RED BLOOD COUNT 4.06 x10e6/uL (3.6-5.1); RED CELL DISTRIBUTION WIDTH 26.8 % (11.7-14.4)
[2020-06-03 04:34] LABS: ALBUMIN 2.4 g/dL (3.5-5.0); ALBUMIN/GLOBULIN RATIO 0.5 (0.8-2.0); ANION GAP 15.9 mmol/L (8-16); CALCIUM 8.3 mg/dL (8.4-10.2); CREATININE, SERUM 1.57 mg/dL (0.57-1.11); POTASSIUM 4.9 mmol/L (3.5-5.1)
[2020-06-03] MEDS: SALMETEROL/FLUTICASONE 250/50 INH SCH ×2 (07:00→19:00)
[2020-06-03 07:42] LABS: ANISOCYTOSIS FEW; BAND NEUTROPHILS % (MANUAL) 4 %; LYMPHOCYTES % (MANUAL) 5 % (19-48); METAMYELOCYTES % (MANUAL) 1 % (0-0); MICROCYTOSIS FEW; MONOCYTES % (MANUAL) 4 % (3.4-9.0); NEUTROPHILS % (MANUAL) 86 % (40-74)
[2020-06-03 07:44] LABS: ELLIPTOCYTE, RBC FEW; HYPOCHROMASIA FEW; SCHISTOCYTES FEW; TARGET CELLS FEW
[2020-06-03 07:45] LABS: PLATELET ESTIMATE SLIGHTLY INCREASED; PLATELET MORPHOLOGY COMMENT NORMAL
--- NOTE | 2020-06-03 08:27 | Diagnostic Imaging Report ---
Examination: Single AP view of the chest. COMPARISON: 06/02/2020, CT chest 05/28/2020 INDICATION: Fever DISCUSSION: Stable position of right upper extremity PICC, the tip terminating over the expected region of the brachiocephalic venous confluence/upper SVC. Lung volumes remain low. Patchy consolidations described on comparison CT chest remain poorly visualized by plain radiography. No new airspace disease, sizable pleural effusion, or pneumothorax. Stable cardiomediastinal contour. No acute osseous abnormalities. IMPRESSION: 1. Stable position of right upper extremity PICC. 2. Low lung volumes with patchy bibasilar airspace disease seen to better advantage on comparison CT. No new consolidations. Signed by: Dr. Henry Barr M.D. on 06/03/2020 8:23 AM
[2020-06-03] MEDS: SODIUM CHLORIDE 0.9% 1000ML 1,000 ML IV SCH ×2 (08:39→16:54)
[2020-06-03] MEDS: CITALOPRAM HYDROBROMIDE 20 MG TAB PO SCH (08:39)
[2020-06-03] MEDS: PRAMIPEXOLE DIHYDROCHLORIDE 0.25 MG TAB PO SCH ×2 (08:39→16:25)
[2020-06-03] MEDS: GABAPENTIN 400 MG CAP PO SCH ×3 (08:39→20:22)
[2020-06-03] MEDS: DULOXETINE HCL 30 MG DELAYED RELEASE PO SCH (08:39)
[2020-06-03] MEDS: PANTOPRAZOLE SOD 40 MG TABEC PO SCH (08:39)
[2020-06-03] MEDS: MIDODRINE HCL 5 MG TABLET PO SCH ×3 (08:39→16:25)
--- NOTE | 2020-06-03 08:54 | NUR ---
more responsive, less akinetic today vs 96.4 91 125/65 HEENT: Her extraocular muscles are intact. She does look to examiner and follows some commands. Her face is symmetric. She has no ptosis. Pupils are reactive. There is no nuchal rigidity. CARDIOVASCULAR: Regular rate and rhythm. PULMONARY: Clear. ABDOMEN: Soft. Strength upper and lower extremities. She does not really follow commands. She does withdraw to noxious stimulation. Strength is 5/5 in uppers and lowers bilaterally but she does not squeeze hands or lift arms or legs to stay to command. There is no tremor. There is no increased rigidity or tone in uppers and lowers. Reflexes are symmetric. ASSESSMENT AND PLAN: The patient seems to have some degree of an akinetic mutism which suggests dopaminergic dysfunction. intaited pramipexole. patient does seem more responsive exam remains non focal but rather suggestive of diffuse bifrontal dysfuncion amantadine trial today eeg reassuring
[2020-06-03] MEDS: AMANTADINE HCL 100 MG CAP PO SCH ×2 (09:00→16:25)
--- NOTE | 2020-06-03 10:25 | Progress Note ---
DATE: Pulmonary Critical Care Progress Note SUBJECTIVE: The patient is still confused. She had an MRI yesterday, that showed no acute abnormalities. She was seen by Neurology. She is scheduled for a lumbar puncture today. The patient also has persistent leukocytosis. She is being followed by Infectious Disease and is receiving antibiotics. PHYSICAL EXAMINATION: VITAL SIGNS: The blood pressure is 133/66, saturation is 99% on 3 L, and the pulse is 98. HEENT: Shows no facial swelling or erythema. LYMPHATIC: Shows no submandibular, cervical, supraclavicular, or adenopathy. CARDIAC: Reveals regular rate and rhythm. Normal S1, S2. LUNGS: Auscultation of lungs shows decreased breath sounds at bases. There is no wheezing. ABDOMEN: Soft, nontender. There is no rebound or guarding. EXTREMITIES: Shows no leg edema or calf tenderness. There is no cyanosis or clubbing. SKIN: Shows no rashes. NEUROLOGICAL: Shows no focal abnormalities. LABORATORY DATA: White blood cell count is 38.76 and hemoglobin is 8.1. The platelet count is 507. Sodium is 132, BUN to creatinine ratio is 29 to 1.57. Carbon dioxide is 20 and chloride is 101. Albumin is 2.4. IMPRESSION: 1. Metabolic encephalopathy. 2. Leukocytosis, fever, and probable pneumonia. 3. Mediastinal adenopathy, suggestive of lymphoma. 4. Anemia, secondary to chronic blood loss. PLAN: 1. Continue current antibiotics. 2. Await LP. 3. Continue to monitor blood counts. 4. Await pathology results. Praveen Sol MD [facility]/MODL /[id number]
[2020-06-03] MEDS ORDERED: LORAZEPAM INJ 2 MG/ML VIAL IV ONE (11:45)
[2020-06-03 13:20] LABS: APPEARANCE,CSF CLEAR (CLEAR); COLOR,CSF COLORLESS (COLORLESS); TUBE NUMBER 3; WHITE BLOOD CELL,CSF 2 cells/uL (0-5)
[2020-06-03 13:49] LABS: TOTAL PROTEIN,CSF 64.1 mg/dL (15-40)
--- NOTE | 2020-06-03 14:29 | Diagnostic Imaging Report ---
PROCEDURE: Lumbar puncture Procedural Personnel Attending physician(s): Rony Ricardo MD Fellow physician(s): None Resident physician(s): None Advanced practice provider(s): None Pre-procedure diagnosis: Altered mental status Post-procedure diagnosis: Same Indication: Concern for meningitis Additional clinical history: None Complications: No immediate complications. IMPRESSION: Fluoroscopically guided lumbar puncture. Fluid removed and sent for further analysis. PROCEDURE SUMMARY: - Fluoroscopically guided lumbar puncture at L2-3. PROCEDURE DETAILS: Pre-procedure Consent: Informed consent for the procedure including risks, benefits and alternatives was obtained and time-out was performed prior to the procedure. Preparation: The site was prepared and draped using maximal sterile barrier technique including cutaneous antisepsis. Anesthesia/sedation Level of anesthesia/sedation: Local 1% lidocaine Lumbar Puncture [employer] Support Workers images were obtained. Under image guidance and via a translaminar approach, a needle was advanced to the thecal space. Opening pressure was measured and CSF was obtained for further analysis. Target level: L2-3 Radiation Dose Fluoroscopy time (minutes): 1.6 Reference air kerma (mGy): 23.6 Additional Details Additional description of procedure: None Equipment details: None Specimens removed: 4 tubes CSF, 16cc total Estimated blood loss (mL): Less than 10 Standardized report: [email or web address] Attestation Signer name: Rony Ricardo MD I attest that I was present for the entire procedure. I reviewed the stored images and agree with the report as written. Signed by: Rony Ricardo MD on 06/03/2020 2:26 PM
[2020-06-03] MEDS: HYDROCODONE/APAP 5MG-325MG TAB PO PRN (16:54)
[2020-06-03 16:56] LABS: BASOPHILS # (AUTO) 0.1 (0.0-0.1); BASOPHILS % 0.6 % (0.0-1.0); EOSINOPHILS # (AUTO) 0.5 (0.0-0.4); EOSINOPHILS % 2.5 % (0.0-6.0); HEMATOCRIT 27.6 % (34.2-44.1); HEMOGLOBIN 7.9 g/dL (12.0-16.0); LYMPHOCYTES # (AUTO) 1.2 (1.0-3.2); LYMPHOCYTES % 6.2 % (18.0-39.1); MEAN CORPUSCULAR HEMOGLOBIN 19.8 pg (28-32); MEAN CORPUSCULAR HGB CONC 28.6 g/dL (31-35); MEAN CORPUSCULAR VOLUME 69.2 fL (81-99); MONOCYTES # (AUTO) 0.8 (0.2-0.8); MONOCYTES % 4.1 % (4.4-11.3); NEUTROPHILS # (AUTO) 15.7 (2.1-6.9); NEUTROPHILS % 83.5 % (38.7-80.0); PLATELET COUNT 392 x10e3/uL (140-360); RED BLOOD COUNT 3.99 x10e6/uL (3.6-5.1); RED CELL DISTRIBUTION WIDTH 26.6 % (11.7-14.4)
[2020-06-03 17:13] LABS: ANION GAP 13.5 mmol/L (8-16); CALCIUM 8.1 mg/dL (8.4-10.2); CREATININE, SERUM 1.64 mg/dL (0.57-1.11); POTASSIUM 4.5 mmol/L (3.5-5.1)
[2020-06-04] VITALS (26 sets, daily range): BP systolic 81–121; BP diastolic 41–90
--- NOTE | 2020-06-04 00:34 | Progress Note ---
DATE: 06/03/2020 Medicine Progress Note SUBJECTIVE: The patient was seen and evaluated around 10 a.m. this morning. The patient is still kind of dazed and confused. She answers one question. She knows she is in the hospital, that is all she really knows. She is awake. She is alert. She is not oriented at all. I spoke with the consultants, we all agreed to get an LP. At this time, she get an LP. OBJECTIVE: VITAL SIGNS: Temperature is 97.7. She has no fever. Pulse 100, respiratory rate is 21, blood pressure 110/57, pulse ox is 97% on nasal cannula 3 L. GENERAL: No acute distress. She is very confused on examination. She is weak. PULMONARY: Clear to auscultation bilaterally. No wheezing, rales, or rhonchi. No crackles appreciated. CARDIOVASCULAR: Positive S1, S2. GI: Abdomen soft, nondistended, nontender to palpation. Bowel sounds present. MUSCULOSKELETAL: Unable to assess, very confused. NEUROLOGIC: Very confused on exam. She is alert on exam. LABORATORY DATA: Labs show her white count down trended to 18.7, hemoglobin 7.9, hematocrit 27.6, platelets of 392. Coagulation, PT 16, INR 1.26. Chemistry, sodium 132, potassium 4.5, chloride 103, bicarb 20, anion gap of 13, BUN is 30, creatinine is 1.64, glucose is 102, calcium is 8.1. LP was clear, colorless, 2 WBCs, 3 RBCs, neutrophils none. Protein was elevated at 64. VDRL was pending. Immunology, ADAMARIS, c-ANCA, p-ANCA are all pending. Serology, several serologies are pending. Microbiology, CSF, Gram stain shows no organisms. Blood cultures, no growth and then AFB, blood cultures, and urine cultures are pending. IMAGING: Shows lung volume with patchy bibasilar airspace disease seen no new consolidation. LP performed. IMPRESSION: 1. Metabolic encephalopathy, presumed to be secondary from anesthesia versus high-dose steroids versus elevated white count through concerns of infection. 2. Fever, multifactorial. This seems secondary to lymphoma and possibly underlying infection. 3. Community-acquired pneumonia. 4. History of asthma. 5. Anxiety, depression. 6. Sinus tachycardia-resolved. PLAN: At this time, the etiology for her encephalopathy is unknown. She did have an MRI of the brain, which was found to be normal. Neurology was consulted and he is following her very closely. EEG is pending. From an infectious standpoint, several serologies have been ordered, including an LP, that was performed today, which was found to be negative. I spoke with Infectious Disease several more tests have been ordered. As per her white count, repeat white count throughout the day seems to have improved. We will get labs in the morning. I spoke with the patient's mother, Danielle Sosa today, phone number [phone]. I updated her about her daughter's overall state. She is currently very confused. She agreed to an LP. At this time, we do not know exactly what is causing her situation and waiting several serologies. I also reviewed with her labs, imaging, including the market consultant's recommendations. She verbalized understanding and agrees to plan of care. The patient continues to be in the ICU for closed observation and monitoring. MD ONEL Walls/HERNANDEZ /[id number]
[2020-06-04] MEDS: SODIUM CHLORIDE 0.9% 1000ML 1,000 ML IV SCH ×3 (03:44→20:58)
[2020-06-04 05:00] LABS: BASOPHILS # (AUTO) 0.1 (0.0-0.1); BASOPHILS % 0.4 % (0.0-1.0); EOSINOPHILS # (AUTO) 0.8 (0.0-0.4); EOSINOPHILS % 5.2 % (0.0-6.0); HEMATOCRIT 24.5 % (34.2-44.1); HEMOGLOBIN 7.1 g/dL (12.0-16.0); LYMPHOCYTES # (AUTO) 1.2 (1.0-3.2); LYMPHOCYTES % 7.5 % (18.0-39.1); MEAN CORPUSCULAR HEMOGLOBIN 19.9 pg (28-32); MEAN CORPUSCULAR VOLUME 68.6 fL (81-99); MONOCYTES # (AUTO) 1.1 (0.2-0.8); MONOCYTES % 6.6 % (4.4-11.3); NEUTROPHILS # (AUTO) 12.2 (2.1-6.9); NEUTROPHILS % 75.9 % (38.7-80.0); PLATELET COUNT 362 x10e3/uL (140-360); RED BLOOD COUNT 3.57 x10e6/uL (3.6-5.1); RED CELL DISTRIBUTION WIDTH 26.6 % (11.7-14.4)
[2020-06-04 05:27] LABS: ANION GAP 14.6 mmol/L (8-16); CALCIUM 7.4 mg/dL (8.4-10.2); CREATININE, SERUM 1.64 mg/dL (0.57-1.11); POTASSIUM 4.6 mmol/L (3.5-5.1)
[2020-06-04] MEDS: SALMETEROL/FLUTICASONE 250/50 INH SCH ×2 (07:00→19:00)
--- NOTE | 2020-06-04 07:00 | NUR ---
Patient received awake and alert. Temp noted to be 102.2 axillary, RR 40, HR 122. Dr Sosa, Al BODY ART TECHNICIAN, and Dr Sol made aware. New orders received and carried out.
[2020-06-04] MEDS: ACETAMINOPHEN 325 MG TAB PO PRN (07:30)
[2020-06-04] MEDS ORDERED: SODIUM CHLORIDE 0.9% IV SCH (08:15)
--- NOTE | 2020-06-04 08:30 | Progress Note ---
DATE: SUBJECTIVE: The patient is seen and evaluated. Available labs and notes reviewed. Discussed with the nurse. Uneventful night. Remains on 5 L per minute nasal cannula. REVIEW OF SYSTEMS: The patient states that she is doing fine. MEDICATIONS: Medication list reviewed from ID point of view. The patient is currently off the antibiotics. LABORATORY STUDIES: White count of 16.12, which has improved, hemoglobin 7.1, platelets 362. Sodium 134, potassium 4.6, creatinine 1.64. ADAMARIS is negative. RPR is pending. EBV, urine Legionella antigen, mycoplasma toxoplasmosis all pending. MICROBIOLOGY: Urine culture negative 24 hours. CSF cultures pending. Blood cultures negative 24 hours and prior to that it was negative on 05/28/2020. Gram stain on CSF and microscopic examination showed white count of 2 with glucose of 64 and total protein of 64.1. PHYSICAL EXAMINATION: VITAL SIGNS: Temperature 98.4, which has overall improved, pulse 120. I have reviewed the pulse, which gradually going up since yesterday, respirations 22, and blood pressure 115/61. GENERAL: Awake, alert, in no acute distress, nasal cannula 5 L per minute. CV: S1 and S2. CHEST: Equal expansion. No acute distress. ABDOMEN: Soft, nontender. HEENT: Moist. No pallor. No JVD. EXTREMITIES: Moves all. ASSESSMENT AND PLAN: 1. Leukocytosis. 2. Tachycardia. 3. Agitation at times per staff. 4. Temperature has improved. 5. Continue to monitor the patient off the antibiotic. Follow up with the workup. Further management of this patient based on daily findings on laboratory and physical examination. Discussed with staff. Discussed with Dr. Jimenez. Anemia per others. Please refer to the chart for more information. Dictated by Rudolph Ruvalcaba PA-C (Al) Deborah Jimenez MD /MODL /[id number]
[2020-06-04 08:31] LABS: ABG HCO3 19 mmol/L (22-26); ABG PCO2 32 mmHg (35-45); ABG PH 7.38 (7.35-7.45); ABG PO2 62 mmHg (80-105); ABG TCO2 20
[2020-06-04] MEDS: PRAMIPEXOLE DIHYDROCHLORIDE 0.25 MG TAB PO SCH ×2 (08:54→15:58)
[2020-06-04] MEDS: GABAPENTIN 400 MG CAP PO SCH ×3 (08:54→20:58)
[2020-06-04] MEDS: PIPER-TAZ 3.375 GM 50 ML IV SCH ×2 (08:54→15:42)
[2020-06-04] MEDS: MIDODRINE HCL 5 MG TABLET PO SCH ×3 (08:54→15:58)
[2020-06-04] MEDS: DULOXETINE HCL 30 MG DELAYED RELEASE PO SCH (08:54)
[2020-06-04] MEDS: PANTOPRAZOLE SOD 40 MG TABEC PO SCH (08:54)
[2020-06-04] MEDS: CITALOPRAM HYDROBROMIDE 20 MG TAB PO SCH (08:54)
[2020-06-04] MEDS: AMANTADINE HCL 100 MG CAP PO SCH (08:55)
[2020-06-04] MEDS ORDERED: LACTATED RINGER'S 1,000 ML INJ SCH (09:00)
[2020-06-04] MEDS ORDERED: ACETAMINOPHEN 325 MG TAB PO SCH (09:00)
[2020-06-04] MEDS ORDERED: FUROSEMIDE INJ 10 MG/ML 2 ML VIAL IV PRN (09:00)
[2020-06-04] MEDS ORDERED: SODIUM CHLORIDE 0.9% 250ML 250 ML IV ONE ×2 (09:00→12:45)
--- NOTE | 2020-06-04 09:06 | Diagnostic Imaging Report ---
EXAMINATION: CHEST SINGLE (PORTABLE) INDICATION: Tachypnic COMPARISON: Multiple prior chest x-ray examinations most recent dated 06/03/2020. FINDINGS: AP view TUBES and LINES: There is a right-sided PICC line in place with distal tip in SVC. . LUNGS/PLEURA: Multifocal patchy airspace opacities of the lung bases further improved from prior exam suggestive of improving multifocal pneumonia. There is no pleural effusion or pneumothorax. HEART AND MEDIASTINUM: The cardiomediastinal silhouette is unremarkable. BONES AND SOFT TISSUES: No acute osseous lesion. Soft tissues are unremarkable. UPPER ABDOMEN: No free air under the diaphragm. IMPRESSION: Multifocal patchy airspace opacities of the lung bases slightly improved from prior exam suggestive of improving multifocal pneumonia. Signed by: Rudolph Mendiola MD on 06/04/2020 9:02 AM
[2020-06-04 09:25] LABS: INR 1.63; PROTHROMBIN TIME 20.1 seconds (11.9-14.5)
[2020-06-04 09:26] LABS: PARTIAL THROMBOPLASTIN TIME 36.3 seconds (23.8-35.5)
[2020-06-04] MEDS: VANCOMYCIN 1GM/NS 250 ML 250 ML IV SCH (09:27)
--- NOTE | 2020-06-04 09:35 | Progress Note ---
DATE: Pulmonary Critical Care Progress Note SUBJECTIVE: I was contacted this morning by the nursing staff because of increased tachycardia. Her heart rate is 120 to 125. She also had a temperature last night of 102.3. She remains confused. A fluid bolus was started. The patient also had repeat cultures drawn as well as fungal serologies. Her antibiotics were escalated to vancomycin plus Zosyn. PHYSICAL EXAMINATION: VITAL SIGNS: Blood pressure is 108/60 and the saturation is 90% on 4 L. The heart rate is 120 to 130. HEENT: Shows no facial swelling or erythema. LYMPHATIC: Shows no submandibular, cervical or supraclavicular adenopathy. CARDIAC: Reveals regular rate and rhythm with normal S1 and S2. LUNGS: Auscultation of lungs reveals crackles and rhonchi bilaterally. There is no wheezing. ABDOMEN: Soft and nontender. There is no rebound or guarding. EXTREMITIES: Shows no leg edema or calf tenderness. There is no cyanosis or clubbing. SKIN: Shows no rashes. NEUROLOGICAL: Shows confusion. LABORATORY DATA: White blood cell count is 16.12, hemoglobin is 7.1, the platelet count is 362. The BUN to creatinine ratio is 29 to 1.64. Carbon dioxide is 18 and the chloride is 106. The sodium is 134 and the potassium is 4.6. Albumin is 2.4. LP is within normal limits except for a mildly elevated CSF protein of 64.1. RADIOGRAPHIC DATA: Chest x-ray from yesterday shows low lung volumes with patchy bibasilar airspace disease. IMPRESSION: 1. Pneumonia with severe sepsis, present on admission. 2. Diffuse mediastinal adenopathy, suggestive of lymphoma. However, axillary node biopsy was nondiagnostic. 3. Anemia secondary to chronic blood loss. 4. Metabolic encephalopathy. 5. Acute kidney injury. 6. Hyponatremia. 7. Mixed metabolic acidosis and respiratory alkalosis. PLAN: 1. Continue IV fluids and monitor vital signs. 2. Escalate antibiotics to vancomycin and Zosyn. 3. Stat echocardiogram to rule out pericardial effusion or pericarditis. 4. Evaluate the patient for either mediastinoscopy or EBUS for a definitive diagnosis of the mediastinal lymphadenopathy. 5. Await fungal serologies, vasculitis studies, SHELBY level. 6. 1 unit of packed red blood cells. 7. Continue to monitor mental status. 8. Case discussed with nursing, Infectious Disease, and Internal Medicine and patient. Greater than 35 minutes in direct critical care time apart from any procedures performed. MD MARTI Ahuja/HERNANDEZ /[id number]
[2020-06-04] MEDS: METHYLPREDNISOLONE SOD SUCC 40 MG/ML VIAL 1ML IV SCH ×3 (10:29→20:58)
[2020-06-04 10:50] LABS: BAND NEUTROPHILS % (MANUAL) 1 %; HYPOCHROMASIA SLIGHT; MICROCYTOSIS SLIGHT; MONOCYTES % (MANUAL) 4 % (3.4-9.0); MYELOCYTES % (MANUAL) 3 % (0-0); NEUTROPHILS % (MANUAL) 83 % (40-74)
[2020-06-04 10:51] LABS: ANISOCYTOSIS MARKED; TARGET CELLS FEW
[2020-06-04 10:52] LABS: OVALOCYTES FEW; PLATELET ESTIMATE ADEQUATE; PLATELET MORPHOLOGY COMMENT NORMAL; RBC MORPHOLOGY COMMENT ABNORMAL; TEAR DROP CELLS FEW
[2020-06-04 10:53] LABS: EOSINOPHILS % (MANUAL) 6 % (0-7); LYMPHOCYTES % (MANUAL) 2 % (19-48)
[2020-06-04] MEDS: FLUCONAZOLE 100 MG/NS 50 ML 50 ML IV SCH (11:23)
[2020-06-04] MEDS: IBUPROFEN 600 MG TAB PO PRN (11:43)
--- NOTE | 2020-06-04 11:49 | NUR ---
Patient's O2 sats noted to be 90% on 5L O2 and RR noted to be 42. Dr Sol made aware, new orders received to put patient on Airvo. Respiratory made aware.
--- NOTE | 2020-06-04 12:08 | NUR ---
Patient placed on Airvo 30L and 70 FiO2 at this time per Respiratory
--- NOTE | 2020-06-04 13:01 | Progress Note ---
DATE: 06/04/2020 ADDENDUM: IMPRESSION: Acute kidney injury, likely secondary to hypotension and ATN-we are going to stop IV fluids to avoid volume overload, but we will give also 2 units packed RBCs due to a hemoglobin level being 7.1. MD ONEL Walls/JENNYL /[id number]
--- NOTE | 2020-06-04 13:12 | NUR ---
Dr Sosa contacted regarding blood order, per grazyna BATES to only tranfuse one unit of blood. Lab made aware.
--- NOTE | 2020-06-04 13:16 | Progress Note ---
DATE: 06/04/2020 Medicine Progress Note SUBJECTIVE: The patient today was very short of breath and tachypneic. Apparently earlier in the morning, she was very confused, but when I came in, interviewed her and evaluated her, she was alert, awake, and oriented. She was able to tell me what was going on with her. She understands why she came into the hospital. She knows the time, the year, the president. She knows exactly where she is at. She is now back to her normal baseline. She is also speaking to her mother by phone as well and she seems to be very appropriate. Her oxygenation requirement has increased now. She is very tachypneic. She is still in the ICU. Discussed plan of care with Pulmonary, ID, and Hematology as well. PHYSICAL EXAMINATION: VITAL SIGNS: Temperature is 98.7, pulse 97, respiratory rate is 21, blood pressure 112/87, and pulse ox 100%. She is on high-flow oxygen now 30%. GENERAL: Not in acute distress. She is alert, awake, and oriented on examination. HEENT: Head; normocephalic, atraumatic. Eyes; pupils are equal, round, and reactive to light bilaterally. PULMONARY: She does have some crackles appreciated. She is on high-flow oxygen. No wheezing. No rhonchi. CARDIOVASCULAR: Positive S1 and S2. No murmurs, rubs, or gallops appreciated. ABDOMEN: Soft, nondistended, and nontender to palpation. Bowel sounds present. MUSCULOSKELETAL: Strength is 5/5 throughout. NEUROLOGIC: Cranial nerves 2 through 12 grossly intact. SKIN: Intact. Warm to touch. Good cap refill. PSYCHIATRIC: Normal affect and mood. EXTREMITIES: No edema. Good range of motion throughout. LABORATORY DATA: Show white count was 16, hemoglobin 7.1, hematocrit is 24.5, and platelets of 362. ABG; pH 7.38, pCO2 of 32, PaO2 of 62, and bicarbonate is 19. Coagulation; PT 20, INR 1.63, and PTT is 36. Chemistry; sodium 134, potassium 4.6, chloride 106, bicarb 18, anion gap of 14, BUN is 29, and creatinine is 1.64. Her glucose is 87. Lactic acid is 0.7. Calcium is 7.4. Iron saturation is 7. LDL was 74. Her TSH 3.7. Cortisol levels pending. Urology, urine studies none, negative. CSF shows very clear, colorless, 2 wbc's, 3 rbc's, seems to be negative. Leptomeningeal cell test not performed. Glucose was 64. Total protein in the CSF was 64. VDRL is pending. Immunology; ADAMARIS is negative, C-ANCA and P-ANCA are pending. Pathology; peripheral smear shows granulocytosis with a right shift. No blasts noted. Lymphopenia, thrombocytosis, minimal hyperchromic microcytic anemia. Serologies; RPR not reactive, coccidial antigen pending. Coronavirus not detected via PCR. EBV pending. HIV negative. Mycoplasma toxoplasmosis urine Legionella pending. MICROBIOLOGY: Initial blood cultures, no growth. Repeat blood cultures, no growth. CSF cultures shows no organisms on the Gram stain. AFB pending. Urine cultures preliminary pending. Blood cultures repeated today. IMAGING STUDIES: Chest x-ray this morning shows multifocal patchy airspace opacities of the lung bases, slightly improved from prior exam, suggestive of improving multifocal pneumonia. IMPRESSION: 1. Metabolic encephalopathy presumed to be from anesthesia versus high-dose steroids or combination of both including infection-now resolved, the patient is alert, awake, and oriented on examination, is doing much better at baseline. 2. Fever, concerning for multifactorial secondary to possible lymphoma, infection versus some other form of etiology. 3. Concerns for community-acquired pneumonia, non-resolving. 4. History of asthma. 5. Anxiety and depression. 6. Sinus tachycardia-resolved. 7. Acute respiratory distress, now on high-flow oxygen. PLAN: At this time, blood cultures have been recollected. IV vancomycin, Zosyn, and Diflucan initiated. Also ordered a repeat sputum culture. I added IV steroids as well. Several serologies are pending. I spoke with Pulmonary, at this time not ready for any bronchoscopy. I spoke with ID, initiated on IV antibiotics as well as antifungal. I also spoke with Hematology. He reports that the pathology results could likely secondary to inconclusive results, but will need several more days to get the final results. At this time, we will continue with aggressive treatment. She is on high-flow oxygen, being managed by Pulmonary. Several serologies are pending. I spoke with the mother, Danielle Sosa today by phone, . I discussed overall findings and current state of her daughter. Currently, all the tests have been back, found to be negative to date. She may need a bronchoscopy at a later date. Her LP was found to be normal. Her cultures were negative. She is on antibiotics and antifungal therapy. Several serologies are pending as well. She verbalized understanding and agrees to plan of care. She will talk to her daughter as well. I discussed the plan of care with the consultants, Pulmonary, Hematology as well as ID, and they all agreed with plan of care. At some point, if she does not improve, we may consider transfer, but at this current state, she seems to be much more with it, has improved tremendously. We will continue same plan of care and monitor very closely. Plan of care discussed with the patient and the mother. MD ONEL Walls/HERNANDEZ /[id number]
[2020-06-05] VITALS (14 sets, daily range): BP systolic 101–114; BP diastolic 68–84
--- NOTE | 2020-06-05 00:13 | Progress Note ---
DATE: 06/03/2020 SUBJECTIVE: Ms. Francis is confused today, but better than yesterday. Her biopsy was read, there is no malignancy. Discussed with Hematology/Oncology. Her white count remains elevated today at 38.7, hemoglobin 8.1, hematocrit 28. Her sodium 132, potassium 4.9, creatinine 1.57. The patient was currently on Neurontin, Cymbalta, Celexa, Protonix, ibuprofen, and Zofran. PHYSICAL EXAMINATION: GENERAL: He is currently alert, but confused. VITAL SIGNS: Stable, afebrile. HEENT: She is not icteric. NECK: Supple. CHEST: Clear. HEART: S1, S2. ABDOMEN: Soft. Bowel sounds present. EXTREMITIES: No edema. SKIN: No rash. The patient underwent LP as outpatient. WBC of 2, RBC of 3, which goes against infection. Her COVID-19 is negative. HIV was negative. IMPRESSION: Lymphadenopathy bilateral. We will obtain blood cultures for urine histoplasmosis, cryptococcal antigen. Continue to monitor CBC. Continue supportive care. Diagnosis still not clear in my mind. We will follow. MD JANNY Sol/HERNANDEZ /[id number]
[2020-06-05 04:01] LABS: BASOPHILS # (AUTO) 0.1 (0.0-0.1); BASOPHILS % 0.7 % (0.0-1.0); EOSINOPHILS % 0.2 % (0.0-6.0); HEMATOCRIT 32.9 % (34.2-44.1); HEMOGLOBIN 9.8 g/dL (12.0-16.0); LYMPHOCYTES # (AUTO) 1.8 (1.0-3.2); LYMPHOCYTES % 10.7 % (18.0-39.1); MEAN CORPUSCULAR HEMOGLOBIN 21.4 pg (28-32); MEAN CORPUSCULAR HGB CONC 29.8 g/dL (31-35); MONOCYTES # (AUTO) 0.6 (0.2-0.8); MONOCYTES % 3.8 % (4.4-11.3); NEUTROPHILS # (AUTO) 13.3 (2.1-6.9); NEUTROPHILS % 78.1 % (38.7-80.0); PLATELET COUNT 367 x10e3/uL (140-360); RED BLOOD COUNT 4.57 x10e6/uL (3.6-5.1)
[2020-06-05 04:19] LABS: ALBUMIN 2.1 g/dL (3.5-5.0); ALBUMIN/GLOBULIN RATIO 0.4 (0.8-2.0); ANION GAP 14.3 mmol/L (8-16); CALCIUM 7.9 mg/dL (8.4-10.2); CREATININE, SERUM 1.47 mg/dL (0.57-1.11); POTASSIUM 5.3 mmol/L (3.5-5.1)
[2020-06-05] MEDS: METHYLPREDNISOLONE SOD SUCC 40 MG/ML VIAL 1ML IV SCH ×2 (05:13→13:33)
--- NOTE | 2020-06-05 06:21 | Diagnostic Imaging Report ---
EXAMINATION: CHEST SINGLE (PORTABLE) INDICATION: ^sob COMPARISON: 06/04/2020 FINDINGS: AP view TUBES and LINES: Stable right PICC. LUNGS: Low lung volumes. There is no evidence of pneumonia or pulmonary edema. PLEURA: No pleural effusion or pneumothorax. HEART AND MEDIASTINUM: The cardiac silhouette is enlarged. BONES AND SOFT TISSUES: No acute osseous lesion. Soft tissues are unremarkable. UPPER ABDOMEN: No free air under the diaphragm. IMPRESSION: Enlarged cardiac silhouette. No definite focal consolidations. Signed by: Dr. Yandel Powell MD on 06/05/2020 6:18 AM
[2020-06-05] MEDS: SALMETEROL/FLUTICASONE 250/50 INH SCH (07:00)
--- NOTE | 2020-06-05 08:33 | Progress Note ---
DATE: SUBJECTIVE: The patient is afebrile. She has improved since yesterday. She is not disoriented. She is alert. She is on Airvo but it is decreased to 50 L with 50%. PHYSICAL EXAMINATION: VITAL SIGNS: Blood pressure is 105/74, saturation is 100% on 50 L with 50% of Airvo. HEENT: Shows no facial swelling or erythema. LYMPHATIC: Shows no submandibular, cervical or supraclavicular adenopathy. CARDIAC: Reveals regular rate and rhythm with normal S1 and S2. LUNGS: Auscultation of lungs shows decreased breath sounds at the bases. There is no wheezing. ABDOMEN: Soft and nontender. There is no rebound or guarding. EXTREMITIES: Shows no leg edema or calf tenderness. There is no cyanosis or clubbing. SKIN: Shows no rashes. NEUROLOGICAL: Shows no focal abnormalities. LABORATORY DATA: White blood cell count is 17.04, hemoglobin is 9.8, platelet count is 367. BUN to creatinine ratio is 36 to 1.47. Potassium is 5.3 and the sodium is 131. Albumin is 2.1. RADIOGRAPHIC DATA: Chest x-ray shows enlarged cardiac silhouette. IMPRESSION: 1. Pneumonia with severe sepsis, present on admission. 2. Diffuse mediastinal adenopathy, suggestive of lymphoma. 3. Anemia secondary to chronic blood loss. 4. Metabolic encephalopathy. 5. Acute kidney injury. 6. Hyponatremia. 7. Hyperkalemia. PLAN: 1. Stop IV fluids and give Lasix today. 2. Continue vancomycin and Zosyn. Obtain vancomycin trough tomorrow. 3. Await blood cultures and fungal serologies. 4. Continue to wean Airvo as tolerated. Praveen Sol MD [facility] /[id number]
[2020-06-05] MEDS ORDERED: FUROSEMIDE INJ 10 MG/ML 4 ML VIAL IV ONE (08:45)
--- NOTE | 2020-06-05 08:49 | Progress Note ---
DATE: SUBJECTIVE: The patient is seen and evaluated. Available labs and notes reviewed. Discussed with the nurse. Discussed with Respiratory therapy. The patient clinically more alert and oriented; however, she was on 5 L of nasal cannula yesterday. Today, upon arrival, she was on 30 L at 70%, which was dropped down to 15 L to 50% and we will monitor her O2 saturation, and it seems to be staying at high 90s, 96% to 97%. REVIEW OF SYSTEMS: No nausea, vomiting, fever, chills, chest pain, shortness of breath, headache, rash, or dysuria. PHYSICAL EXAMINATION: VITAL SIGNS: Temperature improved to 98.2, she had maximum temperature of 102.2 yesterday; pulse 69; respirations 22; and blood pressure 105/74. GENERAL: Awake and alert, in no acute distress. CV: S1, S2. CHEST: Equal expansion. Breath sounds are clear to auscultation bilaterally. ABDOMEN: Soft, nontender. HEENT : Moist. No pallor. No JVD. EXTREMITIES: Weak. MEDICATIONS: Medication is reviewed. From ID point of view, the patient is on: 1. Diflucan. 2. Vancomycin IV. 3. Zosyn. LABORATORY STUDIES: Sodium 131, potassium 5.3, and creatinine 1.47. White blood cells 17.04, hemoglobin 9.8, and platelets 367. Serology, RPR is negative. COVID-19 PCR negative on 05/28/2020. Toxoplasmosis, mycoplasma, urine Legionella antigen, EBV serology pending. ADAMARIS is negative. Microbiology; blood culture recheck is pending, previous blood cultures are negative. CSF culture and Gram stain negative so far. IMAGING DATA: Chest x-ray from today showed enlarged cardiac silhouette with no definite focal consolidation. ASSESSMENT AND PLAN: 1. Fever. 2. Leukocytosis. 3. Tachycardia, now with increase in oxygen with negative chest x-ray and improved in temperature. 4. Metabolic encephalopathy. 5. Asthma. 6. Anxiety and depression. 7. Respiratory distress. She continue with antibiotics as mentioned above, get a BNP. Clinically, in no acute distress, essentially more alert. Further management of this patient is based on daily findings on laboratory and physical examination. Thank you for this consult. Discussed with Dr. Jimenez. Please refer to chart for more information. MD JOIE Sol /[id number]
[2020-06-05] MEDS: PRAMIPEXOLE DIHYDROCHLORIDE 0.25 MG TAB PO SCH (08:54)
[2020-06-05] MEDS: MIDODRINE HCL 5 MG TABLET PO SCH ×2 (08:55→13:33)
[2020-06-05] MEDS: VANCOMYCIN 1GM/NS 250 ML 250 ML IV SCH (08:55)
[2020-06-05] MEDS: PIPER-TAZ 3.375 GM 50 ML IV SCH (08:55)
[2020-06-05] MEDS: DULOXETINE HCL 30 MG DELAYED RELEASE PO SCH (08:55)
[2020-06-05] MEDS: CITALOPRAM HYDROBROMIDE 20 MG TAB PO SCH (08:55)
[2020-06-05] MEDS: PANTOPRAZOLE SOD 40 MG TABEC PO SCH (08:55)
--- NOTE | 2020-06-05 10:25 | NUR ---
RAQUEL SPOKE WITH DR SERVIN WHO IS REQUESTING US TO INITIATE TRANSFER FOR HIGHER LOC- CV SURGERY CONSULT AND CRITICAL CARE PULMONARY FOR SPECIALIZED BRONCH D/W PT AND SHE AGREES PT AWAKE, ALERT AND OX3 CHOICE LETTER SIGNED FOR [facility]; PLACED IN CHART ASKED NURSE NIYA TO MAKE TRANSFER PACKET TO INCLUDE A CD WITH ALL OF PT'S IMAGING ON IT RAQUEL CALLED [facility] AT [facility] [phone], SPOKE WITH ESHA AT 09:29 FAXED FACE SHEET TO [facility] AT [phone], CONFIRMATION REC'D AT 09:35 [facility] CALLED ME BACK AND STATES PT DENIED DUE TO CAPACITY AND SINCE PT IS URGENT TRANSFER SHE CANNOT BE PLACED ON WAIT LIST FOR BED CM CALLED DR SERVIN FOR 3 WAY CONVERSATION WITH ESHA, DR SERVIN STATES PT IS NOT URGENT TRANSFER AND REQUEST PT BE PUT ON WAIT LIST ESHA STATES SHE THINKS IT IS A VERY SHORT WAIT LIST AND PT SHOULD BE ACCEPTED SOON DR SERVIN AWARE OF STATUS AND AGREEABLE
--- NOTE | 2020-06-05 11:53 | NUR ---
I REC'D PHONE CALL FROM ESHA AT [facility] STATING SHE REC'D ADMINISTRATIVE DENIAL FOR THIS PT TO TRANSFER CALL PLACED TO DR SERVIN TO NOTIFY HIM OF DENIAL
--- NOTE | 2020-06-05 12:19 | NUR ---
DR SERVIN CALLED [facility] AND STATES PT IS ACCEPTED
--- NOTE | 2020-06-05 12:43 | NUR ---
CM SPOKE WITH [facility] AT [facility] WHO CONFIRMS THAT PT HAS BEEN ACCEPTED AND IS NOW ON WAIT LIST GAVE [facility] [employer] LETTER CARRIER'S CELL PHONE IN CASE PT IS ACCEPTED AFTER 4PM TODAY MOT GIVEN TO TIA IN HOUSE SUPS OFFICE
[2020-06-05] MEDS: GABAPENTIN 400 MG CAP PO SCH (13:33)
[2020-06-05] MEDS: FLUCONAZOLE 100 MG/NS 50 ML 50 ML IV SCH (13:33)
--- NOTE | 2020-06-05 14:00 | NUR ---
CM REC'D PHONE CALL FROM [facility] IN TRANSFER CENTER AT [facility] WITH MOT [facility] [address] [facility] [id number] CALL REPORT TO: [phone] ROOM IMU [id number] ACCEPTING MD: DR SERVIN ACCEPTING ADMIN: [facility] [employer] [facility] MOT TAKEN TO HOUSE SUP TIA WITH FAX NUMBER TO FAX COMPLETED MOT GAVE PT'S NURSE NUMBER TO CALL REPORT DR SERVIN AWARE AND WILL ENTER DC ORDERS
--- NOTE | 2020-06-05 15:30 | NUR ---
Pt transfer to [facility]. EMS arrived to transport pt. No s/s of distress noted. All patient belongings sent with patient. Copy of med rec and chart sent with EMS.
== END 2020-06-05 15:30 | disposition short-term general hospital (02) | DRG 853 ==
LOC: ER 15:15 → ERHOLD 16:26 → MED/SURG2 20:27 → ICU 06-01 17:37
PROVIDERS: ADMIT Internal Medicine; ATTEND Internal Medicine
PROC: 07B60ZX Excision of Left Axillary Lymphatic, Open Approach, Diagnostic (ICD-10-PCS; principal; 2020-06-01 13:57)
PROC: 02HV33Z Insertion of Infusion Device into Superior Vena Cava, Percutaneous Approach (ICD-10-PCS; 2020-06-02)
PROC: 009U3ZX Drainage of Spinal Canal, Percutaneous Approach, Diagnostic (ICD-10-PCS; 2020-06-03)
DX: A41.9 Sepsis, unspecified organism (principal); J15.9 Unspecified bacterial pneumonia; G93.41 Metabolic encephalopathy; N17.0 Acute kidney failure with tubular necrosis; C85.90 Non-Hodgkin lymphoma, unspecified, unspecified site; E87.1 Hypo-osmolality and hyponatremia; N17.9 Acute kidney failure, unspecified; E87.4 Mixed disorder of acid-base balance; R59.9 Enlarged lymph nodes, unspecified; J45.909 Unspecified asthma, uncomplicated; R06.03 Acute respiratory distress; F41.9 Anxiety disorder, unspecified; F32.9 Major depressive disorder, single episode, unspecified; D50.0 Iron deficiency anemia secondary to blood loss (chronic); E87.5 Hyperkalemia; R45.1 Restlessness and agitation; R41.844 Frontal lobe and executive function deficit; Z20.828 Contact with and (suspected) exposure to other viral communicable diseases
CPT/HCPCS: 36415; 36569; 36600; 62328; 70450; 70551; 71045; 71260; 74177; 74470; 80048; 80053; 80061; 81001; 82164; 82270; 82533; 82728; 82805; 82945; 83036; 83540; 83605; 83615; 83735; 83880; 84100; 84145; 84157; 84443; 84466; 84550; 84702; 85014; 85018; 85025; 85045; 85610; 85730; 86021; 86039; 86592; 86635; 86663; 86664; 86665; 86738; 86777; 86778; 86850; 86900; 86920; 87040; 87070; 87071; 87086; 87116; 87205; 87390; 87400; 87449; 87536; 88304; 88305; 88313; 89051; 93306; 95812; 99284; G0433; G0435; J0692; J0696; J1450; J1885; J1940; J2001; J2060; J2250; J2270; J2405; J2543; J2920; J3010; J3370; J7030; J7050; J7121; P9016; Q9967; U0002

== ENCOUNTER 2020-07-25 14:18 | Inpatient (IN) | payer BC ==
[~2020-07-25] VITALS: Ht 167.6 cm; Wt 78.5 kg
[~2020-07-25 14:18] MED LIST changes: +ADVAIR HFA 115-12 GM; +BENZONATATE100 MG PO; +CITALOPRAM HBR20 MG PO; +FOLIC ACID20 MG PO; +GARLIC1 EAC1 PO; +MECLIZINE HCL12.5 MG PO; +MULTI-VITAMIN1 EACH PF; +NAPROXEN250 MG PO; +PROAIR HFA INH8.5 GM IH; +PROTONIX20 MG PO; +TIZANIDINE HCL4 M1 PO; +ZOMIG5 M1 PO; +[UNRECOGNIZED DRUG - OTHER]
[2020-07-25] MEDS ORDERED: ACETAMINOPHEN 325 MG TAB ONE (14:37)
[2020-07-25] MEDS ORDERED: IBUPROFEN 400 MG TAB ONE (14:37)
[2020-07-25] MEDS ORDERED: SODIUM CHLORIDE 0.9% 1000ML 1,000 ML IV STA ×2 (14:41→16:38)
[2020-07-25] MEDS ORDERED: ASPIRIN81 MG PO (15:09)
[2020-07-25] MEDS ORDERED: PREDNISONE10 MG PO (15:09)
[2020-07-25 15:11] LABS: BASOPHILS # (AUTO) 0.1 (0.0-0.1); BASOPHILS % 0.4 % (0.0-1.0); EOSINOPHILS # (AUTO) 0.6 (0.0-0.4); EOSINOPHILS % 3.5 % (0.0-6.0); HEMATOCRIT 33.6 % (34.2-44.1); HEMOGLOBIN 10.4 g/dL (12.0-16.0); LYMPHOCYTES # (AUTO) 0.9 (1.0-3.2); LYMPHOCYTES % 5.6 % (18.0-39.1); MEAN CORPUSCULAR HEMOGLOBIN 22.2 pg (28-32); MEAN CORPUSCULAR VOLUME 71.8 fL (81-99); MONOCYTES # (AUTO) 1.6 (0.2-0.8); MONOCYTES % 9.6 % (4.4-11.3); NEUTROPHILS # (AUTO) 13.2 (2.1-6.9); PLATELET COUNT 218 x10e3/uL (140-360); RED BLOOD COUNT 4.68 x10e6/uL (3.6-5.1); RED CELL DISTRIBUTION WIDTH 23.9 % (11.7-14.4)
[2020-07-25 15:23] LABS: CLARITY,URINE HAZY (CLEAR); COLOR,URINE YELLOW (YELLOW)
[2020-07-25 15:24] LABS: KETONES,URINE NEGATIVE (NEGATIVE); LEUKOCYTE ESTERASE ,URINE NEGATIVE (NEGATIVE); NITRITE,URINE NEGATIVE (NEGATIVE); PREGNANCY TEST, URINE NEGATIVE (NEGATIVE); PROTEIN,URINE DIPSTICK 2+ (NEGATIVE); URINE UROBILINOGEN 0.2 mg/dL (0.2 - 1)
[2020-07-25 15:33] LABS: ALBUMIN 3.3 g/dL (3.5-5.0); ALBUMIN/GLOBULIN RATIO 0.5 (0.8-2.0); ALKALINE PHOSPHATASE 72 IU/L (40-150); BLOOD UREA NITROGEN 21 mg/dL (7-26); BUN/CREATININE RATIO 20 (6-25); CALCIUM 8.7 mg/dL (8.4-10.2); CARBON DIOXIDE 19 mmol/L (22-29); CHLORIDE 97 mmol/L (98-107); CREATINE KINASE 853 IU/L (29-168); CREATININE, SERUM 1.03 mg/dL (0.57-1.11); EST GLOMERULAR FILTRATION RATE > 60 ML/MIN (60-); GLUCOSE 109 mg/dL (74-118); MAGNESIUM 2.1 MG/DL (1.3-2.1); SODIUM 126 mmol/L (136-145)
[2020-07-25 15:36] LABS: INFLUENZAE A&B ANTIGEN (RAPID) NEGATIVE (NEGATIVE); STREPTOCOCCUS GRP A ANTIGEN NEGATIVE (NEGATIVE)
[2020-07-25 15:39] LABS: ALANINE AMINOTRANSFERASE < 6 IU/L (0-55)
[2020-07-25 15:41] LABS: AMORPHOUS SEDIMENT,URINE FEW (FEW); BACTERIA,URINE FEW /HPF; EPITHELIAL CELLS,URINE FEW /LPF; MUCUS,URINE FEW (RARE)
[2020-07-25 16:18] LABS: INR 1.27; PROTHROMBIN TIME 16.8 seconds (11.9-14.5)
[2020-07-25 16:19] LABS: PARTIAL THROMBOPLASTIN TIME 43.4 seconds (23.8-35.5)
[2020-07-25] MEDS ORDERED: IBUPROFEN 400 MG TAB PO ONE (16:30)
[2020-07-25] MEDS ORDERED: ACETAMINOPHEN 325 MG TAB PO ONE (16:30)
[2020-07-25] MEDS ORDERED: CEFTRIAXONE SOD 1 GM/NS 50 ML 50 ML IV ONE (16:45)
[2020-07-25] MEDS ORDERED: ONDANSETRON HCL INJ 2MG/ML 2ML 2 MG/ML VIAL IV STA (17:25)
[2020-07-25] MEDS ORDERED: FAMOTIDINE 20 MG/2 ML VIAL IV STA (17:25)
[2020-07-25] MEDS ORDERED: ONDANSETRON HCL INJ 2MG/ML 2ML 2 MG/ML VIAL ONE (17:35)
[2020-07-25] MEDS ORDERED: HYDROCORTISONE SOD SUCCINATE 100 MG VIAL IV ONE (17:45)
[2020-07-25] MEDS ORDERED: ACETAMINOPHEN 325 MG TAB PO PRN (18:00)
[2020-07-25] MEDS ORDERED: PROMETHAZINE 12.5MG/ NACL 0.9% 12.5 MG/50 ML BAG IV PRN (18:00)
[2020-07-25] MEDS ORDERED: ONDANSETRON HCL INJ 2MG/ML 2ML 2 MG/ML VIAL IV PRN (18:00)
[2020-07-25] MEDS ORDERED: IOPAMIDOL 370 MG/ML 200 ML INFUS..BTL INJ ONE (18:09)
[2020-07-25] MEDS ORDERED: SODIUM CHLORIDE 0.9% 50ML 50 ML ONE (18:09)
[2020-07-25] MEDS: MEROPENEM 1GRAM 1 GM in SODIUM CHLORIDE 0.9% 100 ML 100 ML IV SCH ×2 (20:53→22:49)
[2020-07-25] MEDS: SODIUM CHLORIDE 0.9% 1000ML 1,000 ML IV SCH ×2 (22:49→22:50)
[2020-07-26] MEDS ORDERED: DEXTROSE 50% SYRINGE 50 ML IV PRN (00:30)
[2020-07-26] MEDS ORDERED: DIPHENHYDRAMINE HCL 25 MG CAP PO PRN (00:30)
[2020-07-26] MEDS ORDERED: GUAIFENESIN/CODEINE 10 ML CUP PO PRN (00:30)
[2020-07-26] MEDS ORDERED: ONDANSETRON HCL INJ 2MG/ML 2ML 2 MG/ML VIAL IV PRN (00:30)
[2020-07-26] MEDS ORDERED: LIDOCAINE 4% PATCH TP PRN (00:30)
[2020-07-26] MEDS ORDERED: ALBUTEROL/IPRATROPIUM 3 ML NEB NEB PRN (00:30)
[2020-07-26] MEDS ORDERED: HYDRALAZINE HCL 20 MG/ML VIAL IV PRN (00:30)
[2020-07-26] MEDS ORDERED: POTASSIUM CHLORIDE 20 MEQ TAB CR PO PRN (00:30)
[2020-07-26] MEDS ORDERED: SIMETHICONE 80 MG CHEW PO PRN (00:30)
[2020-07-26] MEDS ORDERED: CHLORASEPTIC SPRAY 177 ML BTL MM PRN (00:30)
[2020-07-26] MEDS ORDERED: BENZONATATE 100 MG CAP PO PRN (00:30)
[2020-07-26] MEDS ORDERED: POLYETHYLENE GLYCOL 3350 17 GM PACK PO PRN (00:30)
[2020-07-26] MEDS ORDERED: HYDROCODONE/APAP 5MG-325MG TAB PO PRN (00:30)
[2020-07-26] MEDS ORDERED: IBUPROFEN 600 MG TAB PO PRN (00:30)
[2020-07-26] MEDS ORDERED: DOCUSATE SODIUM 100 MG CAP PO PRN (00:30)
[2020-07-26] MEDS ORDERED: ACETAMINOPHEN 325 MG TAB PO PRN (00:30)
[2020-07-26] MEDS ORDERED: MELATONIN 5 MG TABLET PO PRN (00:30)
[2020-07-26] MEDS: SODIUM CHLORIDE 0.9% 1000ML 1,000 ML IV SCH ×2 (05:02→17:14)
[2020-07-26] MEDS: MEROPENEM 1GRAM 1 GM in SODIUM CHLORIDE 0.9% 100 ML 100 ML IV SCH (06:07)
[2020-07-26 06:48] LABS: BASOPHILS % 0.4 % (0.0-1.0); EOSINOPHILS % 0.3 % (0.0-6.0); HEMATOCRIT 33.3 % (34.2-44.1); HEMOGLOBIN 10.2 g/dL (12.0-16.0); LYMPHOCYTES # (AUTO) 0.7 (1.0-3.2); LYMPHOCYTES % 7.1 % (18.0-39.1); MEAN CORPUSCULAR HEMOGLOBIN 22.6 pg (28-32); MEAN CORPUSCULAR HGB CONC 30.6 g/dL (31-35); MEAN CORPUSCULAR VOLUME 73.8 fL (81-99); MONOCYTES # (AUTO) 0.7 (0.2-0.8); MONOCYTES % 6.7 % (4.4-11.3); NEUTROPHILS # (AUTO) 8.8 (2.1-6.9); NEUTROPHILS % 84.7 % (38.7-80.0); PLATELET COUNT 190 x10e3/uL (140-360); RED BLOOD COUNT 4.51 x10e6/uL (3.6-5.1); RED CELL DISTRIBUTION WIDTH 23.9 % (11.7-14.4)
[2020-07-26 07:12] LABS: ALANINE AMINOTRANSFERASE 8 IU/L (0-55); ALBUMIN 2.5 g/dL (3.5-5.0); ALBUMIN/GLOBULIN RATIO 0.5 (0.8-2.0); ALKALINE PHOSPHATASE 52 IU/L (40-150); BLOOD UREA NITROGEN 19 mg/dL (7-26); BUN/CREATININE RATIO 29 (6-25); CALCIUM 7.9 mg/dL (8.4-10.2); CARBON DIOXIDE 19 mmol/L (22-29); CHLORIDE 104 mmol/L (98-107); CREATININE, SERUM 0.65 mg/dL (0.57-1.11); EST GLOMERULAR FILTRATION RATE > 60 ML/MIN (60-); GLUCOSE 105 mg/dL (74-118); MAGNESIUM 2.2 MG/DL (1.3-2.1); PHOSPHORUS 3.7 MG/DL (2.3-4.7); SODIUM 132 mmol/L (136-145)
[2020-07-26 07:33] LABS: THYROID STIMULATING HORMONE 0.807 uIU/mL (0.350-4.940)
[2020-07-26 07:46] LABS: CREATINE KINASE MB 4.3 ng/mL (0-5.0)
[2020-07-26] MEDS ORDERED: MIDODRINE 2.5 MG TAB PO SCH (08:00)
[2020-07-26] MEDS: PANTOPRAZOLE SOD 40 MG TABEC PO SCH (08:05)
[2020-07-26] MEDS: MIDODRINE 2.5 MG TAB PO SCH ×3 (08:05→17:13)
[2020-07-26] MEDS: FAMOTIDINE 20 MG/2 ML VIAL IV SCH ×2 (08:06→17:14)
[2020-07-26 16:15] VITALS: BP 86/50
[2020-07-26] MEDS: ENOXAPARIN SOD INJ 40 MG/0.4 ML SYR SC SCH (17:14)
[2020-07-26 18:21] VITALS: BP 86/50
[2020-07-26 20:00] VITALS: BP 97/54
[2020-07-26 20:52] VITALS: BP 97/54
[2020-07-27] VITALS: BP 91/54
[2020-07-27 04:00] VITALS: BP 98/54
[2020-07-27 05:11] LABS: BASOPHILS # (AUTO) 0.1 (0.0-0.1); BASOPHILS % 1.5 % (0.0-1.0); EOSINOPHILS # (AUTO) 1.2 (0.0-0.4); EOSINOPHILS % 17.7 % (0.0-6.0); HEMATOCRIT 29.3 % (34.2-44.1); HEMOGLOBIN 8.9 g/dL (12.0-16.0); LYMPHOCYTES # (AUTO) 1.1 (1.0-3.2); LYMPHOCYTES % 16.3 % (18.0-39.1); MEAN CORPUSCULAR HEMOGLOBIN 22.4 pg (28-32); MEAN CORPUSCULAR HGB CONC 30.4 g/dL (31-35); MEAN CORPUSCULAR VOLUME 73.8 fL (81-99); MONOCYTES % 14.1 % (4.4-11.3); NEUTROPHILS # (AUTO) 3.4 (2.1-6.9); NEUTROPHILS % 49.4 % (38.7-80.0); PLATELET COUNT 226 x10e3/uL (140-360); RED BLOOD COUNT 3.97 x10e6/uL (3.6-5.1); RED CELL DISTRIBUTION WIDTH 23.8 % (11.7-14.4)
[2020-07-27] MEDS: SODIUM CHLORIDE 0.9% 1000ML 1,000 ML IV SCH (05:31)
[2020-07-27 05:40] LABS: CREATINE KINASE MB 2.8 ng/mL (0-5.0)
[2020-07-27 06:01] LABS: ANION GAP 12.6 mmol/L (8-16); BLOOD UREA NITROGEN 22 mg/dL (7-26); BUN/CREATININE RATIO 29 (6-25); CALCIUM 7.9 mg/dL (8.4-10.2); CARBON DIOXIDE 19 mmol/L (22-29); CHLORIDE 105 mmol/L (98-107); CREATININE, SERUM 0.76 mg/dL (0.57-1.11); EST GLOMERULAR FILTRATION RATE > 60 ML/MIN (60-); GLUCOSE 92 mg/dL (74-118); POTASSIUM 3.6 mmol/L (3.5-5.1); SODIUM 133 mmol/L (136-145)
[2020-07-27] MEDS: PANTOPRAZOLE SOD 40 MG TABEC PO SCH (07:30)
[2020-07-27 07:59] VITALS: BP 91/53
[2020-07-27] MEDS: MIDODRINE 2.5 MG TAB PO SCH ×2 (08:00→12:00)
[2020-07-27 08:15] VITALS: BP 91/53
[2020-07-27] MEDS ORDERED: CITALOPRAM HYDROBROMIDE 20 MG TAB PO SCH (09:00)
[2020-07-27] MEDS ORDERED: PANTOPRAZOLE SOD 40 MG TABEC PO SCH (09:00)
[2020-07-27] MEDS: FAMOTIDINE 20 MG/2 ML VIAL IV SCH ×2 (09:00→15:45)
[2020-07-27 12:00] VITALS: BP 93/48
[2020-07-27] MEDS ORDERED: AUGMENTIN 875-1 EACH PO (15:19)
[2020-07-27] MEDS: ENOXAPARIN SOD INJ 40 MG/0.4 ML SYR SC SCH (15:48)
== END 2020-07-27 15:57 | disposition home or self-care (01) | DRG 815 ==
LOC: ER 14:36 → ERHOLD 17:56 → MED/SURG2 07-26 15:20
PROVIDERS: ADMIT Internal Medicine; ATTEND Internal Medicine
PROC: 02HV33Z Insertion of Infusion Device into Superior Vena Cava, Percutaneous Approach (ICD-10-PCS; principal; 2020-07-25)
DX: R59.9 Enlarged lymph nodes, unspecified (principal); I47.2 Ventricular tachycardia; R50.9 Fever, unspecified; R59.1 Generalized enlarged lymph nodes; Z20.822 Contact with and (suspected) exposure to COVID-19; F41.9 Anxiety disorder, unspecified; F32.9 Major depressive disorder, single episode, unspecified; D86.9 Sarcoidosis, unspecified
CPT/HCPCS: 36415; 36569; 71045; 71260; 74177; 80048; 80053; 81001; 81025; 82550; 82553; 83518; 83605; 83735; 84100; 84443; 84484; 85025; 85610; 85730; 87040; 87070; 87086; 87400; 93005; 93306; 99284; J0696; J1650; J1720; J2185; J2405; J7030; Q9967; U0002